=== PATIENT | male | born 1940 | race Two or more races ===

== ENCOUNTER 2016-03-06 17:50 | Emergency (ER) | payer MEDICARE, MEDICAID ==
[~2016-03-06] VITALS: Ht 165.1 cm; Wt 72.6 kg
[~2016-03-06 17:50] MED LIST: AMLODIPINE-BEN1 EAC1 PO; AMLODIPINE-BEN1 EAC4 PO; ASPIR 8181 MG ORAL; AVODART0.5 MG PO; CIPRO500 MG PO; COLACE100 MG ORAL; DOCUSATE SODIU250 MG PO; FERROUS SULFAT325 MG PO; FLOMAX0.4 MG PO; FLUCONAZOLE200 MG PO; GABAPENTIN400 MG ORAL; GLUCOPHAGE500 MG PO; IBUPROFEN100 M1 PO; METOPROLOL TAR100 MG PO; NORCO 5-325 TA1 EACH ORAL; PEPCID40 MG PO; PRILOSEC20 MG PO; TRAMADOL HCL50 MG ORAL; TYLENOL WITH C1 EACH PO; VICODIN 5-5001 EACH PO; ZOFRAN ODT4 MG ORAL
--- NOTE | 2016-03-06 18:25 | Emergency Room Report ---
History of Present Illness General Chief Complaint: Abdominal Pain Source: Patient, Family Member, Medical Record Present Illness HPI 75 YOM with HTN, DM, CAD s/p stent a few years ago with continued abd pain, mostly LLQ and chills. Denies nausea/vomiting, fever/chills, diarrhea. Is taking Levofloxacin for UTI. Denies foreign travel, denies sick contacts. Patient has another MRN, [id number] with visits here 03/01 (5 days ago) for fever/ chills, sweats. CXR was unremarkable. DC with albuterol/T#3. Visit on 03/03 (3 days prior) for abd pain. Was given zofran and DCed. Labs reviewed from previous visits. Stable H&H. No leuks. UA negative for UTI. CXR showed basilar scarring but no PNA. Blood Cx from previous visit were no growth. Allergies: Coded Allergies: No Known Allergies (Unverified , 03/24/12) Patient History Past Medical History: see triage record, old chart reviewed Past Surgical History: none Pertinent Family History: none Social History: Denies: alcohol use, drug use, smoking Reviewed Nursing Documentation: PMH: Agreed, PSxH: Agreed Nursing Documentation-PMH Past Medical History: No History, Except For Hx Cardiac Problems: Yes Hx Hypertension: Yes Hx Pacemaker: No Hx Asthma: No Hx COPD: No Hx Diabetes: Yes Hx Cancer: No Hx Gastrointestinal Problems: Yes - vomiting Hx Dialysis: No Hx Neurological Problems: No Hx Cerebrovascular Accident: No Hx Seizures: No Review of Systems All Other Systems: negative except mentioned in HPI Physical Exam Vital Signs Date Time Temp Pulse Resp B/P Pulse Ox O2 Delivery O2 Flow Rate FiO2 03/06/16 17:53 97.7 96 22 160/70 96 Room Air Sp02 EP Interpretation: reviewed, abnormal General Appearance: normal inspection, well appearing, no apparent distress, alert, GCS 15, non-toxic Head: atraumatic Eyes: bilateral eye EOMI, bilateral eye PERRL ENT: normal ENT inspection, hearing grossly normal, normal voice Neck: normal inspection, full range of motion, supple, no bony tend Respiratory: normal inspection, chest non-tender, lungs clear, normal breath sounds, no rhonchi, no respiratory distress, no retraction, no accessory muscle use, no wheezing Cardiovascular #1: regular rate, rhythm, no edema Gastrointestinal: normal inspection, normal bowel sounds, soft, no guarding, no hernia, other - Mild ttp to RLQ Genitourinary: no CVA tenderness Musculoskeletal: normal inspection, back normal, normal range of motion, Jeremy' s Sign negative Neurologic: normal inspection, alert, responsive, lip reading teacher III-XII nml as tested, motor strength/tone normal, speech normal Psychiatric: normal inspection, judgement/insight normal, mood/affect normal Skin: normal inspection, normal color, no rash Medical Decision Making Diagnostic Impression: Primary Impression: Abdominal pain Qualified Codes: R10.32 - Left lower quadrant pain ER Course 75 YO M with RLQ pain, about 5 days of fever/chills, sweats, abd pain. 2 other ED visits here in last week. VS notable for HTN here. Afebrile. DDx Colitis, Diverticulitis (known diverticulosis on CTAP 2015), ACS - given CAD history - gastritis, URI, stomach Virus PLAN Cardiac, O2 monitor, ECG, labs, troponin, CXR, CTAP, analgesia, possible admission EKG Diagnostic Results Rate: normal Rhythm: NSR ST Segments: no acute changes ASA given to the pt in ED: No Rhythm Strip Diag. Results EP Interpretation: yes Rate: 75 Rhythm: NSR, no PVC's, no ectopy Reevaluation Time: 18:27 Last Vital Signs Date Time Temp Pulse Resp B/P Pulse Ox O2 Delivery O2 Flow Rate FiO2 03/06/16 17:53 97.7 96 22 160/70 96 Room Air Status: improved Reevaluation Impression Patient refused repeat CXR today. CTAP: chronic diverticulosis, bilateral non obstructing inguinal hernias. Normal appendix Labs: Chronic CKD. No leuks. H&H stable. UA negative for infection A: Chronic abd pain Recommending completing course of Levo Zofran as needed for nausea Will add on Pepcid for ?gastritis, viral gastroenteritis DC home with PMD followup Disposition: HOME, SELF-CARE Scripts Famotidine (PEPCID) 40 Mg Tablet 40 MG PO DAILY for 7 Days, #30 TAB 0 Refills Prov: TRACIE RAIN M.D. 03/06/16 TRACIE RAIN M.D. Mar 06, 2016 18:25
[2016-03-06] MEDS ORDERED: Pantoprazole Inj IV ONE (18:30)
[2016-03-06 18:55] LABS: APPEARANCE,URINE CLEAR; KETONES,URINE NEGATIVE (NEGATIVE); LEUKOCYTE ESTERASE ,URINE 1+ (NEGATIVE); NITRITE,URINE NEGATIVE (NEGATIVE); PH,URINE 5 (4.5-8.0); PROTEIN,URINE 2+ (NEGATIVE); UROBILINOGEN,URINE NORMAL MG/DL (0.0-1.0)
[2016-03-06 18:56] LABS: BASOPHILS % (AUTO) 0.7 % (0.0-2.0); EOSINOPHILS % (AUTO) 0.3 % (0.0-3.0); LYMPHOCYTES % (AUTO) 15.8 % (20.0-45.0); MEAN CORPUSCULAR HEMOGLOBIN 26.1 PG (27.0-31.0); MEAN CORPUSCULAR HGB CONC 31.6 G/DL (32.0-36.0); MEAN CORPUSCULAR VOLUME 83 FL (80-99); MONOCYTES % (AUTO) 6.5 % (1.0-10.0); NEUTROPHILS % (AUTO) 76.7 % (45.0-75.0); PLATELET COUNT 217 K/UL (150-450); RED CELL DISTRIBUTION WIDTH 14.1 % (11.6-14.8); WHITE BLOOD COUNT 9.1 K/UL (4.8-10.8)
[2016-03-06 19:03] LABS: BACTERIA,URINE OCCASIONAL /HPF; RBC,URINE 0-2 /HPF (0 - 0); SQUAMOUS EPITHELIAL CELL,UR OCCASIONAL /LPF (NONE/OCC); WBC,URINE 0-2 /HPF (0 - 0)
[2016-03-06 19:09] LABS: TROPONIN I < 0.30 ng/mL (<=0.30)
[2016-03-06 19:10] LABS: ALANINE AMINOTRANSFERASE 19 U/L (3-41); ALBUMIN/GLOBULIN RATIO 1.4 (1.0-2.7); ANION GAP 14 (5-15); ASPARTATE AMINO TRANSFERASE 19 U/L (5-40); CALCIUM 9.8 mg/dL (8.6-10.2); CARBON DIOXIDE 27 mEQ/L (20-30); CHLORIDE 97 mEQ/L (98-107); CREATININE 1.4 mg/dL (0.7-1.2); HEMOLYSIS 6; LIPASE 22 U/L (< 60); POTASSIUM 4.7 mEQ/L (3.4-4.9); SODIUM 138 mEQ/L (135-145); TOTAL PROTEIN 7.3 g/dL (6.6-8.7)
[2016-03-06 20:00] VITALS: BP 159/67
[2016-03-06] MEDS ORDERED: PEPCID40 MG PO (20:13)
[2016-03-06 20:33] VITALS: BP 138/68
--- NOTE | 2016-03-08 11:46 | Diagnostic Imaging Report ---
Indication: Abdominal pain Technique: CT scan of the abdomen and pelvis utilizing automated exposure control without intravenous or oral contrast. Axial, sagittal and coronal images were obtained. CT dose: Total DLP 627 mGycm; CTDI vol 11.8 mGy Comparison: None Findings: Evaluation of the solid organs is limited without intravenous contrast material. There is atelectasis in the lung bases. There is a small hiatal hernia. A few tiny hypodensities are seen of the liver too small to characterize measuring up to 4 mm. The adrenal glands and pancreas are unremarkable. No CT evident gallstones are identified. Bilateral renal hypodensities are seen measuring up to 3.7 cm in the right kidney incompletely characterized. There is also a peripherally calcified lesion of the right kidney measuring 1.2 cm. Bilateral perinephric stranding is seen. There is no hydronephrosis. There is a calcification of the anterior bladder. Prostate is prominent. There is a fat-containing right inguinal hernia. Mild bilateral hydroceles are demonstrated. Atherosclerotic and his are seen. There is a tiny fat-containing paraumbilical hernia. The small bowel loops are normal in caliber. The appendix is normal. There is colonic diverticulosis without diverticulitis. There is no free intraperitoneal fluid or air. Degenerative changes of the spine are present. Impression: Colonic diverticulosis without diverticulitis. Small hiatal hernia. Bilateral renal hypodensities incompletely characterized could represent cysts. Peripheral calcified lesion of the right kidney measuring 1.2 cm. Correlation with ultrasound recommended. Capsular calcification of the spleen. Atherosclerotic changes. Prominent prostate. Fat-containing right inguinal hernia. Other findings as above. The CT scanner at [facility] is accredited by the [employer] and the scans are performed using protocols designed to limit radiation exposure to as low as reasonably achievable to attain images of sufficient resolution adequate for diagnostic evaluation.
== END 2016-03-06 20:35 | disposition home or self-care (01) ==
LOC: EMR 18:45
DX: R10.32 Left lower quadrant pain (principal); I10 Essential (primary) hypertension; K44.9 Diaphragmatic hernia without obstruction or gangrene; K57.30 Diverticulosis of large intestine without perforation or abscess without bleeding; E11.9 Type 2 diabetes mellitus without complications; I25.10 Atherosclerotic heart disease of native coronary artery without angina pectoris; Z95.5 Presence of coronary angioplasty implant and graft
CPT/HCPCS: 36415; 74176; 80053; 81003; 82962; 83690; 84484; 85025; 96374; 96375; 99284; C9113; Q9967

== ENCOUNTER 2016-11-19 20:31 | Emergency (ER) | payer MEDICARE, MEDICAID ==
[~2016-11-19] VITALS: Ht 165.1 cm; Wt 68.0 kg
[~2016-11-19 20:31] MED LIST changes: +ACETAMINOPHEN-1 EAC1 ORAL; +ATORVASTATIN CA20 MG ORAL; +CIPRO XR 500 M500 MG PO; +CODEINE 30MG TA30 MG PO; +DEXILANT60 MG ORAL; +DOCUSATE SODIU100 M2 ORAL; +FLOMAX0.4 MG ORAL; +GABAPENTIN300 MG ORAL; +GLUCOPHAGE1000 MG PO; +HYDROCHLOROTHIA25 MG ORAL; +IBUPROFEN600 MG PO; +LEVAQUIN500 MG ORAL; +LOTREL 10-40 M1 EACH PO; +METFORMIN HCL1000 M2 ORAL; +METOPROLOL SUC100 MG ORAL; +NORVASC10 MG ORAL; +PROAIR HFA8.5 GM INH; +RANITIDINE HCL150 MG ORAL; +TRAZODONE HCL50 MG ORAL; +UNOBMED
[2016-11-19 20:50] VITALS: BP 185/91
[2016-11-19] MEDS ORDERED: Mylanta II UD 30ml ORAL ONE (21:00)
[2016-11-19] MEDS ORDERED: Morphine Sulfate 2mg/ml Inj IVP ONE (21:00)
[2016-11-19] MEDS ORDERED: Lidocaine 2% Visc 15ml soln ORAL ONE (21:00)
--- NOTE | 2016-11-19 21:00 | Emergency Room Report ---
History of Present Illness General Chief Complaint: Chest Pain Source: Patient Present Illness HPI Patient presents with 3 days of epigastric abdominal pain. This radiates into his chest. Has history of gastritis. He's been taking Pepto-Bismol and Tylenol. Denies any fevers or vomiting. There's no melena. He takes omeprazole. Pain now is 9/10, burning and constant. He also has pain in the heel of his left foot. Has been taking tramadol for that The patient has history of hypertension and post CABG, no smoking, DM No cough, dyspnea, diaphoresis, dysuria, other joint pain, rashes, REYNOLDS, dizziness , anxiety. Allergies: Coded Allergies: No Known Allergies (Unverified , 02/25/10) Patient History Past Medical History: see triage record Past Surgical History: CABG Social History: Denies: smoking, alcohol use, drug use Social History Narrative with son Reviewed Nursing Documentation: PMH: Agreed, PSxH: Agreed Nursing Documentation-PMH Hx Cardiac Problems: Yes - heart bypass surgery Hx Hypertension: Yes Hx Pacemaker: No Hx Asthma: No Hx COPD: No Hx Diabetes: Yes Hx Cancer: No Hx Gastrointestinal Problems: Yes - vomiting Hx Dialysis: No Hx Neurological Problems: No Hx Cerebrovascular Accident: No Hx Seizures: No Review of Systems All Other Systems: negative except mentioned in HPI Physical Exam Vital Signs Date Time Temp Pulse Resp B/P (MAP) Pulse Ox O2 Delivery O2 Flow Rate FiO2 11/19/16 20:40 98.4 89 18 185/91 98 Sp02 EP Interpretation: reviewed, normal General Appearance: well appearing, no apparent distress, GCS 15 Head: normocephalic Eyes: bilateral eye PERRL ENT: other - facial assymmetry, slight lax R Neck: supple Respiratory: lungs clear, normal breath sounds Cardiovascular #1: regular rate, rhythm Cardiovascular #2: 2+ radial (R), 2+ dorsalis pedis (L) Gastrointestinal: normal inspection, normal bowel sounds, non tender, no mass, non-distended Musculoskeletal: back normal, normal range of motion, tender - L heel, ankle stable Neurologic: alert, oriented x3 Skin: normal inspection, warm/dry Medical Decision Making Diagnostic Impression: Primary Impression: Abdominal pain Qualified Codes: R10.13 - Epigastric pain Additional Impressions: Gastritis Qualified Codes: K29.00 - Acute gastritis without bleeding Plantar fasciitis of left foot ER Course Patient presents with epigastric pain. DDx: gastritis, AMI, ACS, esophagitis, PUD, pancreatitis amongst others. Emergent evaluation with EKG, cxr, labs. Treatment with GI cocktail and pepcid with some morphine. At risk with hx and taking Pepto. Foot pain c/w planta fasciitis. EKG no injury. CXR post CABG. Labs with sl elevated creat and BNP. Normal troponin. Pain resolved with treatment. No cardiac emergency at this time. Patient stable for outpatient observation and treatment. Laboratory Tests Test 11/19/16 21:34 White Blood Count 9.3 K/UL (4.8-10.8) Red Blood Count 4.75 M/UL (4.70-6.10) Hemoglobin 11.8 G/DL (14.2-18.0) L Hematocrit 39.6 % (42.0-52.0) L Mean Corpuscular Volume 83 FL (80-99) Mean Corpuscular Hemoglobin 24.7 PG (27.0-31.0) L Mean Corpuscular Hemoglobin Concent 29.7 G/DL (32.0-36.0) L Red Cell Distribution Width 13.7 % (11.6-14.8) Platelet Count 168 K/UL (150-450) Mean Platelet Volume 8.6 FL (6.5-10.1) Neutrophils (%) (Auto) 77.3 % (45.0-75.0) H Lymphocytes (%) (Auto) 15.1 % (20.0-45.0) L Monocytes (%) (Auto) 6.7 % (1.0-10.0) Eosinophils (%) (Auto) 0.3 % (0.0-3.0) Basophils (%) (Auto) 0.6 % (0.0-2.0) Prothrombin Time 10.6 SEC (9.30-11.50) Prothrombin Time INR 1.0 (0.9-1.1) PTT 26 SEC (23-33) Sodium Level 140 mEQ/L (135-145) Potassium Level 4.8 mEQ/L (3.4-4.9) Chloride Level 102 mEQ/L (98-107) Carbon Dioxide Level 25 mEQ/L (20-30) Anion Gap 13 (5-15) Blood Urea Nitrogen 13 mg/dL (7-23) Creatinine 1.3 mg/dL (0.7-1.2) H Estimate Glomerular Filtration Rate mL/min (>60) Glucose Level 257 mg/dL (74-106) H Calcium Level 9.4 mg/dL (8.6-10.2) Total Bilirubin 0.2 mg/dL (0.0-1.2) Aspartate Amino Transferase (AST) 11 U/L (5-40) Alanine Aminotransferase (ALT) 9 U/L (3-41) Alkaline Phosphatase 67 U/L (40-129) Total Creatine Kinase 48 U/L (38-174) Troponin I < 0.30 ng/mL (<=0.30) Pro-B-Type Natriuretic Peptide 1007 pg/mL (0-450) H Total Protein 7.3 g/dL (6.6-8.7) Albumin 4.0 g/dL (3.5-5.2) Globulin 3.3 g/dL Albumin/Globulin Ratio 1.2 (1.0-2.7) EKG Diagnostic Results Rate: normal Rhythm: NSR ST Segments: no acute changes Rhythm Strip Diag. Results EP Interpretation: yes Rhythm: NSR, no PVC's, no ectopy Chest X-Ray Diagnostic Results Chest X-Ray Diagnostic Results : Chest X-Ray Ordered: Yes # of Views/Limited/Complete: 1 View Indication: Other EP Interpretation: Yes Interpretation: no consolidation, no effusion, no pneumothorax, other - sternotomy Electronically Signed by: Electronically signed by Yannick Gregory MD Last Vital Signs Date Time Temp Pulse Resp B/P (MAP) Pulse Ox O2 Delivery O2 Flow Rate FiO2 11/19/16 23:50 98.1 71 21 169/77 100 Room Air Status: improved Disposition: HOME, SELF-CARE Condition: Improved Scripts Mag Hydrox/Al Hydrox/Simeth (MAALOX MAXIMUM STRENGTH SUSP) 355 Ml Oral.susp 30 ML PO Q6HR, #240 ML Prov: Yannick Gregory M.D. 11/19/16 Hydrocodone Bit/Acetaminophen 5-325* (NORCO 5-325*) 1 Each Tablet 1 TAB ORAL Q6H Y for For Pain, #10 TAB 0 Refills Prov: Yannick Gregory M.D. 11/19/16 Yannick Gregory M.D. Nov 19, 2016 21:00
[2016-11-19 21:45] LABS: BASOPHILS % (AUTO) 0.6 % (0.0-2.0); EOSINOPHILS % (AUTO) 0.3 % (0.0-3.0); LYMPHOCYTES % (AUTO) 15.1 % (20.0-45.0); MEAN CORPUSCULAR HEMOGLOBIN 24.7 PG (27.0-31.0); MEAN CORPUSCULAR HGB CONC 29.7 G/DL (32.0-36.0); MEAN CORPUSCULAR VOLUME 83 FL (80-99); MEAN PLATELET VOLUME 8.6 FL (6.5-10.1); MONOCYTES % (AUTO) 6.7 % (1.0-10.0); NEUTROPHILS % (AUTO) 77.3 % (45.0-75.0); PLATELET COUNT 168 K/UL (150-450); RED BLOOD COUNT 4.75 M/UL (4.70-6.10); RED CELL DISTRIBUTION WIDTH 13.7 % (11.6-14.8); WHITE BLOOD COUNT 9.3 K/UL (4.8-10.8)
[2016-11-19 21:56] LABS: PROTHROMBIN TIME 10.6 SEC (9.30-11.50)
[2016-11-19 21:59] LABS: ALANINE AMINOTRANSFERASE 9 U/L (3-41); ALBUMIN/GLOBULIN RATIO 1.2 (1.0-2.7); ANION GAP 13 (5-15); ASPARTATE AMINO TRANSFERASE 11 U/L (5-40); CALCIUM 9.4 mg/dL (8.6-10.2); CARBON DIOXIDE 25 mEQ/L (20-30); CHLORIDE 102 mEQ/L (98-107); CREATININE 1.3 mg/dL (0.7-1.2); HEMOLYSIS 0; POTASSIUM 4.8 mEQ/L (3.4-4.9); SODIUM 140 mEQ/L (135-145); TOTAL PROTEIN 7.3 g/dL (6.6-8.7); TROPONIN I < 0.30 ng/mL (<=0.30)
[2016-11-19 23:00] VITALS: BP 178/79
[2016-11-19] MEDS ORDERED: NORCO 5-325 TA1 EACH ORAL (23:38)
[2016-11-19] MEDS ORDERED: MAALOX MAXIMUM355 M1 PO (23:38)
[2016-11-19 23:50] VITALS: BP 169/77
--- NOTE | 2016-11-20 10:21 | Diagnostic Imaging Report ---
Indication: Dyspnea Comparison: 05/15/15 A single view chest radiograph was obtained. Findings: No definite infiltrate or pulmonary vascular congestion identified. The heart is enlarged. The aorta is mildly enlarged consistent with atherosclerotic vascular disease. The bones are osteopenic. Impression: No acute disease
--- NOTE | 2016-11-26 23:26 | Cardiology Report ---
APPROVED REPORT EKG Measurement Heart [id number] Normal sinus rhythm Cannot rule out Anterior infarct, age undetermined Abnormal ECG
== END 2016-11-19 23:50 | disposition home or self-care (01) ==
LOC: MERGE 23:03 → EMR 23:03
DX: K29.70 Gastritis, unspecified, without bleeding (principal); M72.2 Plantar fascial fibromatosis; I10 Essential (primary) hypertension; E11.9 Type 2 diabetes mellitus without complications; Z95.1 Presence of aortocoronary bypass graft
CPT/HCPCS: 36415; 71010; 80053; 82550; 83880; 84484; 85025; 85610; 85730; 93005; 96361; 96374; 96375; 99284; J2270; S0028

== ENCOUNTER 2018-05-28 19:24 | Emergency (ER) | payer MEDICARE, MEDICAID ==
[~2018-05-28] VITALS: Ht 165.1 cm; Wt 68.0 kg
[~2018-05-28 19:24] MED LIST changes: +MAALOX MAXIMUM355 M1 PO
--- NOTE | 2018-05-28 20:12 | Emergency Room Report ---
History of Present Illness General Chief Complaint: Chest Pain Source: Patient Present Illness HPI Patient presents with a strange feeling in his chest and some epigastric pain that began this morning when he woke up. The pain did not wake him up. He says he's got a bitter taste in his mouth and vomited once. I denies any blood or coffee grounds. He denies any melena also. He is on omeprazole. In addition to that he is diabetic and hypertensive. He's had triple bypass in the past. He doesn't feel dizziness. There's minimal dyspnea on exertion without orthopnea. He denies any edema or calf tenderness. He feels weak. The pain is poorly characterized and rated 5/10. No fevers, chills, palpitations, diarrhea, dysuria, depression, visual changes, headache. He's been seen several times in the past for abdominal pain and gastritis. Allergies: Coded Allergies: No Known Allergies (Unverified , 03/24/12) Patient History Past Medical History: see triage record, old chart reviewed Past Surgical History: CABG Social History: Denies: smoking, alcohol use, drug use Social History Narrative with daughter Reviewed Nursing Documentation: PMH: Agreed; PSxH: Agreed Nursing Documentation-PMH Hx Cardiac Problems: Yes Hx Hypertension: Yes Hx Pacemaker: No Hx Asthma: No Hx COPD: No Hx Diabetes: Yes Hx Cancer: No Hx Gastrointestinal Problems: Yes - vomiting Hx Dialysis: No Hx Neurological Problems: No Hx Cerebrovascular Accident: No Hx Seizures: No Review of Systems All Other Systems: negative except mentioned in HPI Physical Exam Vital Signs Date Time Temp Pulse Resp B/P (MAP) Pulse Ox O2 Delivery O2 Flow Rate FiO2 05/28/18 19:36 98.8 108 21 180/112 97 Room Air Sp02 EP Interpretation: reviewed, normal General Appearance: well appearing, no apparent distress, GCS 15 Head: normocephalic Eyes: bilateral eye normal inspection, bilateral eye PERRL, bilateral eye EOMI ENT: moist mucus membranes Neck: supple Respiratory: lungs clear, normal breath sounds Cardiovascular #1: no edema, no murmur, tachycardia, irregularly irregular Cardiovascular #2: 2+ radial (R) Gastrointestinal: normal inspection, normal bowel sounds, non tender, no mass, non-distended, overweight Musculoskeletal: back normal, gait/station normal, normal range of motion Neurologic: alert, oriented x3, grossly normal Psychiatric: mood/affect normal Skin: normal inspection, warm/dry Medical Decision Making Diagnostic Impression: Primary Impression: Chest pain Qualified Codes: R07.9 - Chest pain, unspecified Additional Impressions: Nausea & vomiting Qualified Codes: R11.2 - Nausea with vomiting, unspecified CHF (congestive heart failure) Qualified Codes: I50.9 - Heart failure, unspecified HTN (hypertension) Qualified Codes: I10 - Essential (primary) hypertension Renal insufficiency Paroxysmal A-fib Epigastric pain ER Course Initially, when I was taking the patient's pulse he had an irregularly irregular rapid pulse rate which felt like atrial fibrillation. By the time he was put on the monitor he was in sinus rhythm. Given the chest pain and the nausea better taste in his mouth there is a broad differential with his prior cardiac history. Differential includes acute myocardial infarction, new-onset atrial fibrillation, acute coronary syndrome, gastritis, GERD, pancreatitis, gastroenteritis amongst others. The patient evaluated with EKG, chest x-ray and labs. He will be treated with Pepcid and Zofran. EKG with sinus rhythm rate of 95 no injury. CXR CABG with pulm vascular congestion. Labs with normal WBC, slight anemia, renal insufficiency, normal troponin, slightly elevated BNP. Minimal pyuria. HTN treated with metoprolol (dose taken by patient). Patient's daughter reported continued pain, but this was denied by patient. Initially, lasix and mylanta ordered with nitro-paste. Former 2 meds cancelled as patient urinating frequently and denies pain. Due to arrhythmia and pulmonary congestion, patient admitted monitored bed for continued evaluation. Laboratory Tests Test 05/28/18 19:34 05/28/18 20:15 Urine Color Pale yellow Urine Appearance Clear Urine pH 8 (4.5-8.0) Urine Specific [place] 1.010 (1.005-1.035) Urine Protein 2+ (NEGATIVE) H Urine Glucose (UA) Negative (NEGATIVE) Urine Ketones Negative (NEGATIVE) Urine Blood Negative (NEGATIVE) Urine Nitrite Negative (NEGATIVE) Urine Bilirubin Negative (NEGATIVE) Urine Urobilinogen Normal MG/DL (0.0-1.0) Urine Leukocyte Esterase 1+ (NEGATIVE) H Urine RBC 0 /HPF (0 - 0) Urine WBC 5-10 /HPF (0 - 0) H Urine Squamous Epithelial Cells None /LPF (NONE/OCC) Urine Bacteria Few /HPF (NONE) Urine Mucus Few /LPF (NONE/OCC) H White Blood Count 7.2 K/UL (4.8-10.8) Red Blood Count 4.74 M/UL (4.70-6.10) Hemoglobin 12.2 G/DL (14.2-18.0) L Hematocrit 38.3 % (42.0-52.0) L Mean Corpuscular Volume 81 FL (80-99) Mean Corpuscular Hemoglobin 25.7 PG (27.0-31.0) L Mean Corpuscular Hemoglobin Concent 31.9 G/DL (32.0-36.0) L Red Cell Distribution Width 14.0 % (11.6-14.8) Platelet Count 155 K/UL (150-450) Mean Platelet Volume 7.3 FL (6.5-10.1) Neutrophils (%) (Auto) % (45.0-75.0) Lymphocytes (%) (Auto) % (20.0-45.0) Monocytes (%) (Auto) % (1.0-10.0) Eosinophils (%) (Auto) % (0.0-3.0) Basophils (%) (Auto) % (0.0-2.0) Prothrombin Time 10.7 SEC (9.30-11.50) Prothrombin Time INR 1.0 (0.9-1.1) PTT 28 SEC (23-33) Sodium Level 138 MMOL/L (136-145) Potassium Level 5.0 MMOL/L (3.5-5.1) Chloride Level 104 MMOL/L (98-107) Carbon Dioxide Level 26 MMOL/L (21-32) Anion Gap 8 mmol/L (5-15) Blood Urea Nitrogen 23 mg/dL (7-18) H Creatinine 1.6 MG/DL (0.55-1.30) H Estimate Glomerular Filtration Rate mL/min (>60) Glucose Level 169 MG/DL (74-106) H Calcium Level 9.3 MG/DL (8.5-10.1) Total Bilirubin 0.3 MG/DL (0.2-1.0) Aspartate Amino Transferase (AST) 18 U/L (15-37) Alanine Aminotransferase (ALT) 24 U/L (12-78) Alkaline Phosphatase 75 U/L (46-116) Total Creatine Kinase 122 U/L (26-308) Troponin I 0.032 ng/mL (0.000-0.056) Pro-B-Type Natriuretic Peptide 677 pg/mL (0-125) H Total Protein 7.8 G/DL (6.4-8.2) Albumin 3.6 G/DL (3.4-5.0) Globulin 4.2 g/dL Albumin/Globulin Ratio 0.9 (1.0-2.7) L EKG Diagnostic Results Rate: normal Rhythm: NSR ST Segments: no acute changes Rhythm Strip Diag. Results EP Interpretation: yes Rhythm: NSR, no PVC's, no ectopy Chest X-Ray Diagnostic Results Chest X-Ray Diagnostic Results : Chest X-Ray Ordered: Yes # of Views/Limited/Complete: 1 View Indication: Chest Pain EP Interpretation: Yes Interpretation: no effusion, no pneumothorax, other - CABG and mild CHF Impression: Other Electronically Signed by: Electronically signed by Yannick Gregory MD Last Vital Signs Date Time Temp Pulse Resp B/P (MAP) Pulse Ox O2 Delivery O2 Flow Rate FiO2 05/29/18 00:35 Room Air 05/29/18 00:07 76 05/28/18 23:00 98.5 16 153/69 (97) 97 Status: improved Disposition: ADMITTED INPATIENT Condition: Serious Yannick Gregory MD May 28, 2018 20:12
[2018-05-28 20:15] VITALS: BP 160/84
--- NOTE | 2018-05-28 20:15 | NUR ---
ED Nurse Note: Patient walk in with daughter c/o upper abdominal pain radiating to upper left chest. Patient AOx4, BP 160/84, other VSS, ambulatory with steady gait, no s/s of acute distress noted at this time. Patient states pain started this morning at 1000. Patient reports vomiting undigested food 3 times this morning. Patient seen by ERMD at bedside.
[2018-05-28 20:18] LABS: APPEARANCE,URINE CLEAR; BILIRUBIN, URINE NEGATIVE (NEGATIVE); COLOR,URINE PALE YELLOW; GLUCOSE, URINE (UA) NEGATIVE (NEGATIVE); KETONES,URINE NEGATIVE (NEGATIVE); LEUKOCYTE ESTERASE ,URINE 1+ (NEGATIVE); NITRITE,URINE NEGATIVE (NEGATIVE); PH,URINE 8 (4.5-8.0); PROTEIN,URINE 2+ (NEGATIVE); UROBILINOGEN,URINE NORMAL MG/DL (0.0-1.0)
[2018-05-28 20:39] LABS: HEMATOCRIT 38.3 % (42.0-52.0); HEMOGLOBIN 12.2 G/DL (14.2-18.0); MEAN CORPUSCULAR VOLUME 81 FL (80-99); PLATELET COUNT 155 K/UL (150-450); RED BLOOD COUNT 4.74 M/UL (4.70-6.10); WHITE BLOOD COUNT 7.2 K/UL (4.8-10.8)
[2018-05-28 20:48] LABS: ANION GAP 8 mmol/L (5-15); BLOOD UREA NITROGEN 23 mg/dL (7-18); CALCIUM 9.3 MG/DL (8.5-10.1); CARBON DIOXIDE 26 MMOL/L (21-32); CHLORIDE 104 MMOL/L (98-107); CREATININE 1.6 MG/DL (0.55-1.30); SODIUM 138 MMOL/L (136-145)
[2018-05-28] MEDS ORDERED: OMEPRAZOLE40 M1 ORAL (20:53)
[2018-05-28] MEDS ORDERED: BENAZEPRIL HCL40 MG ORAL (20:56)
[2018-05-28] MEDS ORDERED: TRADJENTA5 MG PO (20:56)
[2018-05-28] MEDS ORDERED: DONEPEZIL HCL5 M2 ORAL (20:56)
[2018-05-28] MEDS ORDERED: TRAMADOL HCL50 MG ORAL (20:56)
[2018-05-28 20:59] LABS: ALANINE AMINOTRANSFERASE 24 U/L (12-78); ALBUMIN 3.6 G/DL (3.4-5.0); ALBUMIN/GLOBULIN RATIO 0.9 (1.0-2.7); ALKALINE PHOSPHATASE 75 U/L (46-116); ASPARTATE AMINO TRANSFERASE 18 U/L (15-37); BILIRUBIN,TOTAL 0.3 MG/DL (0.2-1.0); CREATINE KINASE 122 U/L (26-308)
--- NOTE | 2018-05-28 20:59 | Diagnostic Imaging Report ---
EXAM: XR Chest, 1 View CLINICAL HISTORY: chest pain TECHNIQUE: Frontal view of the chest. COMPARISON: October 25, 2015 chest x-ray FINDINGS: Lungs: Mild central pulmonary vascular congestion is noted. Lungs otherwise clear. Pleural space: No pneumothorax or pleural effusion. Heart: Borderline cardiac enlargement is present. Mediastinum: Unremarkable. Bones/joints: Post sternotomy surgical changes with surgical clips suggesting prior CABG. No aggressive osseous lesions. Vasculature: The thoracic aorta is calcified and appears slightly more tortuous in the interval. Upper abdomen: No free air in the diaphragms. IMPRESSION: Post CABG surgical changes of aortic tortuosity and mild central pulmonary venous congestion. Otherwise no acute cardiopulmonary process.
[2018-05-28] MEDS ORDERED: Nitroglycerin Subl 0.4mg tab SL PRN (21:45)
[2018-05-28] MEDS ORDERED: Nitroglycerin 2% oint pkt TOPIC ONE (21:45)
[2018-05-28] MEDS ORDERED: Mylanta II UD 30ml ORAL ONE (21:45)
[2018-05-28 22:15] VITALS: BP 176/75
--- NOTE | 2018-05-28 22:15 | NUR ---
ED Nurse Note: Patient transferred to telemetry unit. Patient AOx4, BP 176/75, other VSS, no s/s of acute distress noted at this time, ambulatory with steady gait. Patient transferred with all belongings. Patient transferred on [facility], connected to compliance monitor, by EUGENIO rachel and medical staff services coordinator. Patient report given to Nirav BOWLES at bedside. Patient tolerated transfer well.
[2018-05-28 23:00] VITALS: BP 153/69
--- NOTE | 2018-05-28 23:00 | NUR ---
NURSE NOTES: Pt arrived on unit from ER. Got report from Aaron BOWLES. Initial assessment done. Pt in stable condition. VSS. Pt denies any chest pain or any pain. No n/v noted. Pt sating 97% on room air. Pt Japanese speaking but able to answer all of my questions A+Ox4. Pt able to ambulate to bathroom steady w/o difficulty. Bed in low and locked position, call light within reach, bedside table within reach. Continue to monitor.
[2018-05-28] MEDS: Enoxaparin 40mg Inj SUBQ SCH (23:05)
[2018-05-29 04:20] VITALS: BP 153/76
[2018-05-29] MEDS: NovoLOG Insulin Flexpen SUBQ SCH ×4 (06:04→20:36)
[2018-05-29 06:55] LABS: BASOPHILS % (AUTO) 0.4 % (0.0-2.0); EOSINOPHILS % (AUTO) 0.7 % (0.0-3.0); HEMATOCRIT 37.4 % (42.0-52.0); HEMOGLOBIN 12.1 G/DL (14.2-18.0); LYMPHOCYTES % (AUTO) 16.4 % (20.0-45.0); MEAN CORPUSCULAR VOLUME 82 FL (80-99); MONOCYTES % (AUTO) 9.4 % (1.0-10.0); NEUTROPHILS % (AUTO) 73.1 % (45.0-75.0); PLATELET COUNT 160 K/UL (150-450); RED BLOOD COUNT 4.57 M/UL (4.70-6.10); RED CELL DISTRIBUTION WIDTH 14.2 % (11.6-14.8); WHITE BLOOD COUNT 7.1 K/UL (4.8-10.8)
[2018-05-29 07:08] LABS: ANION GAP 7 mmol/L (5-15); BLOOD UREA NITROGEN 22 mg/dL (7-18); CALCIUM 9.3 MG/DL (8.5-10.1); CARBON DIOXIDE 27 MMOL/L (21-32); CHLORIDE 104 MMOL/L (98-107); CREATININE 1.6 MG/DL (0.55-1.30); POTASSIUM 4.3 MMOL/L (3.5-5.1); SODIUM 138 MMOL/L (136-145)
--- NOTE | 2018-05-29 07:20 | NUR ---
HAND-OFF: Report given to Negra BOWLES. Endorsed plan of care.
[2018-05-29 08:00] VITALS: BP 152/76
--- NOTE | 2018-05-29 08:28 | NUR ---
NURSE NOTES: Received report from Nirav BOWLES. Pt sitting in bed having breakfast. pt on panel monitor reports no pain or signs of distress. Bed locked and in lowest position. Call light is next to him. Will continue plan of care.
[2018-05-29] MEDS: Metoprolol Succinate XL 100mg tab ORAL SCH (08:46)
[2018-05-29] MEDS: traMADol 50mg tab ORAL PRN ×2 (08:46→22:54)
[2018-05-29] MEDS: Aspirin Baby 81mg ORAL SCH (08:47)
--- NOTE | 2018-05-29 09:00 | History and Physical Report ---
DATE OF ADMISSION: 05/28/2018 REASON FOR ADMISSION: Chest pain. HISTORY OF PRESENT ILLNESS: The patient is a 77-year-old gentleman, who started having some chest tightness and pain along with epigastric discomfort in the morning prior to presentation to the emergency room overnight. The patient stated that he had 1 episode of emesis, and he had a bitter taste in his mouth. He is also complaining of left foot pain, which has been chronic for over 3 years. No palpitations. No diarrhea. No headaches. No changes in vision. He stated that the chest pain, discomfort is gripping in nature and approximately 5/10. ALLERGIES: No known drug allergies. PAST MEDICAL HISTORY: 1. Hypertension. 2. Chronic kidney disease. 3. Neuropathy. 4. Diabetes mellitus. 5. BPH. FAMILY HISTORY: Positive for hypertension and diabetes. PAST SURGICAL HISTORY: Noncontributory. REVIEW OF SYSTEMS: NEUROLOGIC: The patient denies headache, change in vision, syncope, or presyncopal episodes. CARDIOVASCULAR: The patient was having chest pain and some tightness. No palpitations. PULMONARY: No difficulty breathing, productive cough, or sputum. GASTROINTESTINAL AND GENITOURINARY: The patient had episodes of emesis. No diarrhea. MUSCULOSKELETAL: The patient is feeling weak, tired, fatigued, and complaining of left foot pain. LABORATORY DATA: Labs dated 03/31/2018, sodium 130, potassium 4.2, and creatinine 1.6. Troponin 0.041. White cell count 7.1, hemoglobin 12.1, and platelet count 160,000. PHYSICAL EXAMINATION: VITAL SIGNS: Blood pressure 153/76, respiratory rate 18, pulse 83, and temperature 97.5 degrees. GENERAL: The patient is awake and alert, not otherwise in distress. HEENT: Extraocular muscles intact. No lymphadenopathy noted. CARDIOVASCULAR: S1 and S2. No rubs or gallops. PULMONARY: Clear to auscultation bilaterally. No rales, rhonchi, or wheezes. ABDOMEN: Nondistended and nontender. EXTREMITIES: No edema. ASSESSMENT AND PLAN: 1. Acute coronary syndrome. 2. Chest pain. At this time, the patient has been given aspirin and beta-veronika and trending troponins will be monitored. Cardiology has been also consulted for further evaluation and management. 3. Hypertension. We will continue to adjust medications as deemed appropriate. We will add MARTA inhibitor back as creatinine seems stable. His baseline is unclear at this time. 4. Chronic kidney disease stage IIIB. Creatinine 1.6. We will continue to monitor. 5. Diabetes mellitus. We will continue insulin sliding scale and Accu-Cheks. Nash Palma MD DR: JOAQUÍN JOB#: [id number] CC:
--- NOTE | 2018-05-29 09:04 | Diagnostic Imaging Report ---
EXAM: XR Left Foot Complete, 3 or More Views CLINICAL HISTORY: PAIN TECHNIQUE: Frontal, lateral and oblique views of the left foot. COMPARISON: No relevant prior studies available. FINDINGS: Bones/joints: Incidental note of an os trigonum. No visible fracture or dislocation. No osseous erosions. Visualized joint spaces appear unremarkable. Soft tissues: Unremarkable. No radiopaque foreign body. Vasculature: Atherosclerotic calcifications noted throughout. IMPRESSION: No acute findings.
--- NOTE | 2018-05-29 11:58 | NUR ---
NURSE NOTES: sugar 119, food tray just arrived will give insulin now.
[2018-05-29 12:00] VITALS: BP 152/76
[2018-05-29 16:00] VITALS: BP 135/67
--- NOTE | 2018-05-29 19:19 | NUR ---
HAND-OFF: Report given to Cosme barahona .
--- NOTE | 2018-05-29 19:25 | NUR ---
NURSE NOTES: Received report from JELENA Omer. Patient in bed awake with family at bedside showing no signs of any distress or discomfort. Respiration even and non labor on room air. No chest pain noted. IV line patent and intact. Bed in lowest position. Bed alarm on, and wheels locked. All needs attended and met. Will continue plan of care.
[2018-05-29 20:00] VITALS: BP 152/71
[2018-05-29] MEDS ORDERED: Donepezil 5mg Tab ORAL SCH (21:00)
[2018-05-29] MEDS: Enoxaparin 40mg Inj SUBQ SCH (22:55)
[2018-05-30] VITALS: BP 144/62
[2018-05-30] MEDS ORDERED: Lexiscan 0.4mg/5ml syringe IV ONE (03:30)
[2018-05-30 04:00] VITALS: BP 152/70
--- NOTE | 2018-05-30 04:15 | Consultation ---
DATE OF CONSULTATION: 05/29/2018 CARDIOLOGY CONSULT CONSULTING PHYSICIAN: Yannick Porras M.D. REQUESTING PHYSICIAN: Nash Palma M.D. REASON FOR CONSULTATION: Chest pain. HISTORY OF PRESENT ILLNESS: This is a 77-year-old male, who presented to the emergency room yesterday with chest pressure and epigastric discomfort of one day's duration. He also noted a bitter taste in his mouth with some emesis. The chest pressure has not been exertional, but has been recurring . The patient had 2 negative troponin levels since admission. His electrocardiogram revealed sinus rhythm with nonspecific ST-T changes. The patient has a known history of CAD and is s/p CABG in 1995. PAST MEDICAL HISTORY: Includes CAD with prior CABG, chronic kidney disease, hypertension with hypertensive heart disease, type 2 diabetes mellitus, diabetic neuropathy, and prostatic hypertrophy. MEDICATIONS: Prior to admission and currently, reviewed and reconciled. FAMILY HISTORY: Notable for diabetes and hypertension SOCIAL HISTORY: Negative for smoking, alcohol, or substance abuse. REVIEW OF SYSTEMS: A 10-point review of systems performed in all systems negative other than noted above. PHYSICAL EXAM: VITAL SIGNS: Blood pressure 152/76, pulse 64, and respirations 21. No fevers. HEENT: Conjunctiva pink. Oropharynx clear. No xanthoma. No arcus. NECK: Supple. No jugular venous distention or bruits. LUNGS: Clear. CARDIAC: Regular rhythm and rate. Normal S1, S2 with a fourth heart sound. No murmur. ABDOMEN: Soft. EXTREMITIES: Revealed adequate distal pulses with no edema. LABORATORY DATA: BUN 22 and creatinine 1.6. Potassium 4.3. Troponin negative x2. Pro-natriuretic peptide was 677 on admission. IMPRESSION: 1. Acute coronary syndrome. 2. Hypertensive heart disease. 3. Type 2 diabetes mellitus. 4. Chronic kidney disease. 5. Diastolic dysfunction with slightly elevated natriuretic peptide assay. 6. Ischemic cardiomyopathy. PLAN: 1. Recommend anti-platelet therapy. 2. Lipid panel. 3. Optimize antihypertensive control. 4. Lexiscan stress test for assessment of coronary flow reserve. 5. Final medication recommendations will follow. Yannick Porras M.D. DR: LIYDA JOB#: [id number] CC: CHERYL
[2018-05-30] MEDS: NovoLOG Insulin Flexpen SUBQ SCH ×3 (06:08→16:30)
[2018-05-30 06:50] LABS: BASOPHILS % (AUTO) 0.6 % (0.0-2.0); EOSINOPHILS % (AUTO) 1.4 % (0.0-3.0); LYMPHOCYTES % (AUTO) 26.6 % (20.0-45.0); MEAN CORPUSCULAR VOLUME 82 FL (80-99); MONOCYTES % (AUTO) 8.7 % (1.0-10.0); NEUTROPHILS % (AUTO) 62.7 % (45.0-75.0); PLATELET COUNT 177 K/UL (150-450); RED BLOOD COUNT 4.89 M/UL (4.70-6.10); RED CELL DISTRIBUTION WIDTH 14.3 % (11.6-14.8); WHITE BLOOD COUNT 6.2 K/UL (4.8-10.8)
[2018-05-30 07:10] LABS: ANION GAP 9 mmol/L (5-15); BLOOD UREA NITROGEN 26 mg/dL (7-18); CALCIUM 9.3 MG/DL (8.5-10.1); CARBON DIOXIDE 26 MMOL/L (21-32); CHLORIDE 105 MMOL/L (98-107); CREATININE 1.6 MG/DL (0.55-1.30); POTASSIUM 4.1 MMOL/L (3.5-5.1); SODIUM 140 MMOL/L (136-145)
--- NOTE | 2018-05-30 07:13 | NUR ---
HAND-OFF: Report given to JELENA Omer. Pt. in bed asleep. no signs of acute distress noted. Patient stable.
[2018-05-30 07:32] LABS: CHOLESTEROL 189 MG/DL (< 200); HDL CHOLESTEROL 36 MG/DL (40-60); TRIGLYCERIDES 143 MG/DL (30-150)
[2018-05-30 08:00] VITALS: BP 163/89
--- NOTE | 2018-05-30 08:16 | NUR ---
NURSE NOTES: received report from Nirav BOWLES. Pt is alert in bed and talking. 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 He understands he will be having a stress test done this morning and he needs to be NPO and have no caffeine products. Bed locked and in lowest position. call light is right next to him. Will continue plan of care.
--- NOTE | 2018-05-30 08:29 | NUR ---
CASE MANAGEMENT:REVIEW 77 YR OLD MALE FROM HOME CC: ABDOMINAL PAIN RADIATING TO CHEST. VOMITED SI: CHEST PAIN. PAFIB. CHF 98.8 108 21 180/112 97% ON RA BUN+23 CR+1.6 TROPONIN(-) IS: IV ZOFRAN IV PEPCID METOPROLOL PO CHEST XRAY : TO TELEMETRY Addendum: 05/30/18 at 0840 by PRISCILLA GUARDADO LVN LVN STRESS TEST
[2018-05-30] MEDS: Metoprolol Succinate XL 100mg tab ORAL SCH (09:00)
[2018-05-30] MEDS ORDERED: Heparin 5000 units/ml inj SUBQ SCH (09:00)
[2018-05-30] MEDS: Aspirin Baby 81mg ORAL SCH (09:01)
[2018-05-30 12:00] VITALS: BP 136/71
--- NOTE | 2018-05-30 13:48 | NUR ---
Myocardial Perfusion scan complete.
--- NOTE | 2018-05-30 14:40 | Diagnostic Imaging Report ---
Indications: Chest pain, history of CABG in 1995 Technique: Single day single isotope protocol utilized. Initially, resting images obtained using IV administration 10.3 millicuries 99M technetium Myoview. Subsequently, patient underwent lexiscan stress testing. See cardiology report for details. During Lexiscan infusion, IV administration 30.7 mCi 99 M technetium Myoview. SPECT and planar images obtained. SPECT images gated to 8 phases of the cardiac cycle were also obtained, and reformatted into cine images for evaluation of ejection fraction. Comparison: none Findings: Presence or absence of symptoms is not reported on the cardiology report. Per cardiology report, resting EKG demonstrates normal sinus rhythm. Presence or absence of ST changes is not reported on the cardiology report. Imaging demonstrates small focal perfusion abnormality in the apex which appears to be reversible. There is a fixed perfusion defect in the anterior wall near the base without any evidence of reperfusion.. Calculated post stress ejection fraction 46%.. Gated images demonstrate equivocally slightly decreased anterior wall motion Impression: Nonischemic clinical response to pharmacologic stress, per cardiology report Nonischemic electrocardiographic response to pharmacologic stress, per cardiology report Apparent small reversible perfusion defect at the apex, suspicious for small area of ischemia Fixed perfusion defect, consistent with infarct, involving the anterior wall Calculated post stress ejection fraction 46%
[2018-05-30 16:00] VITALS: BP 121/68
--- NOTE | 2018-05-30 18:59 | Physician Query ---
PHYSICIAN DOCUMENTATION QUERY Diagnosis Clarification Dear Dr: Bradly Marie Paiva : Date: MR #: Patient Name: Admit Date: Account# Documentation clarification is required to meet compliance, accuracy in coding and severity of illness reflection for your patient. Doctor, This is a 77-year-old male, who presented to the emergency room yesterday with chest pressure and epigastric discomfort of one day's duration. Dx (Cons. Note): 1. possible acute coronary syndrome. 2. Hypertensive heart disease. 5. Diastolic dysfunction with slightly elevated natriuretic peptide Lab: Pro-natriuretic peptide was 677 on admission Stress Test: Calculated post stress ejection fraction 46% C-Xray: Heart: Borderline cardiac enlargement is present Please document the appropriate diagnosis on the Discharge Summary or on this form as an addendum. (Sign and date all documentation) [ ] Acute Diastolic heart failure [ ] Chronic Diastolic heart failure [ ] Acute on chronic Diastolic heart failure [ x ] Other ___no heart failure [ ] Unable to determine MD Signature: __ Date: If you have any questions, please contact the HIM Department (Medical Records) at # . Thank You! This form is a permanent part of the medical record MTDD
--- NOTE | 2018-05-30 19:25 | NUR ---
NURSE NOTES: pt refused food because he was too full. Because he didn't eat, he did not get insulin pt refused. Advised pt to continue taking prescribed diabetes medication at home.
--- NOTE | 2018-05-30 19:27 | NUR ---
HAND-OFF: Report given to Rodney BOWLES.
--- NOTE | 2018-05-30 19:28 | NUR ---
Received report from JELENA Omer. Pt awake and resting. IV site intact and patent. Will continue with plan of care.
--- NOTE | 2018-05-30 20:30 | NUR ---
NURSE NOTES: Contacted Dr. Machado to confirm pt's stress test result was clear and I was instructed to discharge pt.
--- NOTE | 2018-05-30 20:31 | NUR ---
NURSE NOTES: D/C pt IV. Pt discharged home with no belongings. Accompanied by family upon discharge.
--- NOTE | 2018-05-30 23:45 | Discharge Summary ---
DATE OF ADMISSION: 05/28/2018 DATE OF DISCHARGE: 05/30/2018 PERTINENT HISTORY: The patient is admitted for evaluation of chest pain. He did have some nausea and vomiting and epigastric pain. There is a history of gastritis and coronary disease, diabetes, and hypertension. PERTINENT PHYSICAL FINDINGS: See the note by Dr. Palma, who saw the patient on my behalf. VITAL SIGNS: Stable. LUNGS: Clear. HEART: Regular rhythm. ABDOMEN: Soft without organomegaly. COURSE IN THE HOSPITAL: The patient is admitted with acute coronary syndrome. He had borderline troponins of uncertain significance, 0.032 and 0.041. He was seen by Dr. Yannick Porras in Cardiology consultation. He did have a myocardial perfusion scan nuclear medicine, which showed an old infarct and a small reversible perfusion defect at the apex. The patient was on adequate cardiac medicines and discharged home in stable condition. FINAL DIAGNOSES: 1. Acute coronary syndrome. 2. Nausea and vomiting. 3. Possible episode of hypoglycemia at home. 4. Diabetes. 5. Chronic kidney disease stage 3. 6. History of peripheral neuropathy. 7. History of lumbar disc. DISCHARGE DISPOSITION: Home on a diabetic diet. MEDICATIONS: Per the discharge medication list. FOLLOWUP: Follow up by Dr. Machado. Nishant Machado M.D. DR: MICHELLE JOB#: [id number] CC:
--- NOTE | 2018-05-31 | Progress Note ---
DATE: 05/30/2018 CARDIOLOGY PROGRESS NOTE SUBJECTIVE: The patient has not had any recurring chest pain since admission and he has had negative troponin levels noted. He underwent a myocardial perfusion scan today that revealed a reduced ejection fraction of 46% with large anterior scar and apical reversible ischemia of a small quantity. OBJECTIVE: VITAL SIGNS: Blood pressure 136/71 and earlier 163/89, heart rate 78, respiratory rate 21, afebrile. LUNGS: Clear. CARDIAC: Regular. Normal S1, S2 with a fourth heart sound. ABDOMEN: Soft. EXTREMITIES: No edema. IMPRESSION: 1. Ischemic cardiomyopathy with prior CABG. 2. Acute coronary syndrome, now stabilized on medical therapy. 3. Small amount of owen-infarct reversible ischemia, on myocardial perfusion scan. 4. Hypertensive heart disease. 5. Type 2 diabetes mellitus. PLAN: Aggressive medical therapy to include statin drug for LDL less than 70, anti-platelet therapy with aspirin, maximal antianginal regimen with beta-blockers and nitrates, and consideration for cardiac catheterization if the patient demonstrates recurring ischemia on current medical regimen. We will also recommend angiotensin-converting enzyme inhibitor in view of diabetes and left ventricular systolic dysfunction. Yannick Porras M.D. DR: NANNETTE JOB#: [id number] CC:
--- NOTE | 2018-05-31 18:26 | Cardiology Report ---
APPROVED REPORT EKG Measurement Heart [id number] [place] [id number] Normal sinus rhythm Normal ECG
== END 2018-05-28 22:15 | disposition home or self-care (01) ==
LOC: EMR 20:09 → EDBEDREQ 21:17 → 2E 21:30 → UNDOADMIN 21:30 → EDBEDREQ 21:43 → 2E 05-30 00:06 → UNDODISIN 05-30 21:51
DX: I24.9 Acute ischemic heart disease, unspecified (principal); I25.10 Atherosclerotic heart disease of native coronary artery without angina pectoris; I12.9 Hypertensive chronic kidney disease with stage 1 through stage 4 chronic kidney disease, or unspecified chronic kidney disease; N18.3 Chronic kidney disease, stage 3 (moderate); E11.22 Type 2 diabetes mellitus with diabetic chronic kidney disease; E11.40 Type 2 diabetes mellitus with diabetic neuropathy, unspecified; R11.2 Nausea with vomiting, unspecified; I25.119 Atherosclerotic heart disease of native coronary artery with unspecified angina pectoris; I25.5 Ischemic cardiomyopathy; Z95.1 Presence of aortocoronary bypass graft; N40.0 Benign prostatic hyperplasia without lower urinary tract symptoms; I48.91 Unspecified atrial fibrillation
CPT/HCPCS: 36415; 71045; 80053; 81003; 82550; 83880; 84484; 85025; 85610; 85730; 93005; 96374; 96375; 99285; J1650; J2405; S0028; 78452; 80048; 80061; 82962; 84443; 93017; J1815; J2785

== ENCOUNTER 2018-07-30 00:10 | Emergency (ER) | payer MEDICARE, MEDICAID ==
[~2018-07-30] VITALS: Ht 165.1 cm; Wt 72.6 kg
[~2018-07-30 00:10] MED LIST changes: +BENAZEPRIL HCL40 MG ORAL; +DONEPEZIL HCL5 M2 ORAL; +OMEPRAZOLE40 M1 ORAL; +TRADJENTA5 MG PO
--- NOTE | 2018-07-30 00:59 | NUR ---
Note dar in EDM - 07/30/18 at 0109 by FLAVIO ED Nurse Note: PT AMBUALTED TO ED FROM WITH SON C/O BLOOD IN URINE, AND ABD PAIN X1 DAY ACCOMPANIED WITH N/V. URINE SPECIMEN COLLECTED AND WILL BE SENT TO LAB
--- NOTE | 2018-07-30 00:59 | NUR ---
ED Nurse Note: PT AMBUALTED TO ED FROM HOME WITH SON C/O BLOOD IN URINE, AND ABD PAIN X1 DAY ACCOMPANIED WITH N/V. URINE SPECIMEN COLLECTED AND WILL BE SENT TO LAB
[2018-07-30 01:00] VITALS: BP 177/77
[2018-07-30] MEDS ORDERED: Lidocaine 2% Visc 15ml soln ORAL ONE (01:30)
[2018-07-30] MEDS ORDERED: Mylanta II UD 30ml ORAL ONE (01:30)
[2018-07-30 01:51] LABS: APPEARANCE,URINE CLEAR; BILIRUBIN, URINE NEGATIVE (NEGATIVE); COLOR,URINE PALE YELLOW; GLUCOSE, URINE (UA) 4+ (NEGATIVE); KETONES,URINE NEGATIVE (NEGATIVE); LEUKOCYTE ESTERASE ,URINE NEGATIVE (NEGATIVE); NITRITE,URINE NEGATIVE (NEGATIVE); PH,URINE 7 (4.5-8.0); PROTEIN,URINE 1+ (NEGATIVE); UROBILINOGEN,URINE NORMAL MG/DL (0.0-1.0)
[2018-07-30 02:06] VITALS: BP 161/69
--- NOTE | 2018-07-30 02:40 | NUR ---
ED Nurse Note: pt taken to CT
--- NOTE | 2018-07-30 02:51 | NUR ---
ED Nurse Note: pt returned from CT
--- NOTE | 2018-07-30 03:22 | Diagnostic Imaging Report ---
EXAM: CT Abdomen and Pelvis Without Intravenous Contrast CLINICAL HISTORY: ABD PAIN TECHNIQUE: Axial computed tomography images of the abdomen and pelvis without intravenous contrast. CTDI is 13 mGy and DLP is 644 mGy-cm. One or more of the following dose reduction techniques were used: automated exposure control, adjustment of the mA and/or kV according to patient size, use of iterative reconstruction technique. COMPARISON: 03/06/16 CT abdomen FINDINGS: Lung bases: No mass. No consolidation. ABDOMEN: Liver: Unremarkable. Gallbladder and bile ducts: Unremarkable. Pancreas: No ductal dilation. Spleen: Unremarkable. Adrenals: Unremarkable. Kidneys and ureters: Unchanged calcified and noncalcified cyst. No obstructing stones. No hydronephrosis. Stomach and bowel: No bowel obstruction. No bowel wall thickening. Mild hiatal hernia. Colonic diverticulosis. PELVIS: Appendix: No evidence of appendicitis. Bladder: Unchanged 4 mm stone near the anterior bladder wall Reproductive: Enlarged. ABDOMEN and PELVIS: Intraperitoneal space: Mild stranding around the descending colon.. Bones/joints: No acute fractures. Bilateral L5 pars defects without significant spondylolisthesis. Large anterior osteophyte at L3-4. Soft tissues: Unremarkable. Vasculature: No abdominal aortic aneurysm. Lymph nodes: No enlarged lymph nodes. IMPRESSION: 1. Colonic diverticulosis with mild stranding around the descending colon, likely representing early/mild diverticulitis.
--- NOTE | 2018-07-30 03:31 | Emergency Room Report ---
History of Present Illness General Chief Complaint: Male Urogenital Problems Source: Patient, Family Member, Medical Record Present Illness HPI Is a 77-year-old male with a history of reflux. Resents with chief complaint of reflux and hematuria. Reflux and pain is a chronic issue for him. Onset tonight. He is already taking Carafate and omeprazole. Worse with eating. Unknown whether or not he has endoscopy. He had 3 episode of hematuria tonight. Never had this problem before. Pain is epigastric in nature. 7 out of 10. Allergies: Coded Allergies: No Known Allergies (Unverified , 07/30/18) Patient History Past Medical History: see triage record, old chart reviewed Past Surgical History: none Pertinent Family History: none Social History: Denies: smoking Immunizations: other Reviewed Nursing Documentation: PMH: Agreed; PSxH: Agreed Nursing Documentation-PMH Hx Cardiac Problems: Yes Hx Hypertension: Yes Hx Pacemaker: No Hx Asthma: No Hx COPD: No Hx Diabetes: Yes Hx Cancer: No Hx Gastrointestinal Problems: Yes - vomiting Hx Dialysis: No Hx Neurological Problems: No Hx Cerebrovascular Accident: No Hx Seizures: No Review of Systems Eye: Denies: eye pain, blurred vision ENT: Denies: ear pain, nose congestion, throat swelling Respiratory: Denies: cough, shortness of breath Cardiovascular: Denies: chest pain, palpitations Gastrointestinal: Reports: abdominal pain; Denies: diarrhea, nausea, vomiting Genitourinary: Reports: hematuria Musculoskeletal: Denies: back pain, joint pain Skin: Denies: rash Neurological: Denies: headache, numbness Endocrine: Denies: increased thirst, increased urine Hematologic/Lymphatic: Denies: easy bruising All Other Systems: negative except mentioned in HPI Physical Exam Vital Signs Date Time Temp Pulse Resp B/P (MAP) Pulse Ox O2 Delivery O2 Flow Rate FiO2 07/30/18 00:48 98.2 91 18 190/78 (115) 98 Room Air Medical Decision Making Diagnostic Impression: Primary Impression: Gastritis Qualified Codes: K29.00 - Acute gastritis without bleeding Additional Impressions: Diverticulitis Hematuria Qualified Codes: R31.0 - Gross hematuria ER Course Presents with gastritis which is chronic in nature. He already has work-up done here. CT scan showed early diverticulitis. He also has a bladder stone. This may cause hematuria. No evidence of any infection. He may need to see a urologist for cystoscopy. CT/MRI/US Diagnostic Results CT/MRI/US Diagnostic Results : Imaging Test Ordered: CT scan of abdomen and pelvis Impression Read by radiologist. Bladder stone. Renal cysts. Colonic diverticulosis with mild stranding likely representing early diverticulitis. Last Vital Signs Date Time Temp Pulse Resp B/P (MAP) Pulse Ox O2 Delivery O2 Flow Rate FiO2 07/30/18 02:06 98.2 83 20 161/69 100 Room Air Status: improved Disposition: HOME, SELF-CARE Condition: Stable Scripts Amoxicillin/Potassium Clav 875-125* (AUGMENTIN 875-125 TABLET*) 1 Each Tablet 1 TAB ORAL TWICE A DAY, #14 TAB Prov: Ronald Mccall MD 07/30/18 Referrals: Nishant Machado MD (PCP) Additional Instructions: Follow-up with your doctor in a week. You may need a referral to see urologist for cystoscopy. Return if worse. Ronald Mccall MD Jul 30, 2018 03:31
[2018-07-30] MEDS ORDERED: AUGMENTIN 875-1 EAC1 ORAL (03:36)
[2018-07-30 03:45] VITALS: BP 155/76
--- NOTE | 2018-07-30 03:45 | NUR ---
ER DISCHARGE NOTE: Patient is cleared to be discharged per ERMD, pt is aox4, on room air, with stable vital signs. pt was given dc and prescription instructions, pt was able to verbalize understanding, pt id band removed. pt is able to ambulate with steady gait. pt took all belongings. Accompanied by daughter Poornima.
== END 2018-07-30 03:45 | disposition home or self-care (01) ==
LOC: EMR 00:57
DX: K29.00 Acute gastritis without bleeding (principal); K57.92 Diverticulitis of intestine, part unspecified, without perforation or abscess without bleeding; R31.0 Gross hematuria; I10 Essential (primary) hypertension; E11.9 Type 2 diabetes mellitus without complications; N28.1 Cyst of kidney, acquired; N21.0 Calculus in bladder
CPT/HCPCS: 74176; 81003; 99284

== ENCOUNTER 2019-12-27 16:00 | Inpatient (IN) | payer MEDICARE, MEDICAID ==
[~2019-12-27] VITALS: Ht 165.1 cm; Wt 81.6 kg
[~2019-12-27 16:00] MED LIST changes: +AUGMENTIN 875-1 EAC1 ORAL
[2019-12-27 16:11] VITALS: BP 149/73
--- NOTE | 2019-12-27 16:11 | NUR ---
ED Nurse Note: Pt wheeled in to ED from home c/o generalized weakness. Pt was referred by Dr. Machado, blood works were done. Per daughter, pt is weaker than usual, refusing to eat, drink and get out of his bed. AAOx3, verbally responsive. No SOB, on room air. Denies pain. ERMD at bedside.
--- NOTE | 2019-12-27 16:21 | Emergency Room Report ---
History of Present Illness General Chief Complaint: Generalized Weakness Source: Patient, Family Member - daughter, PMD - Dr Machado Present Illness HPI Patient is an 79-year-old male past medical history of CAD, old CVA, diabetes, hypertension, hyperlipidemia and BPH who was brought in for Covid testing by his primary care physician. Patient reports 4 days of generalized weakness and fatigue. He complains of decreased p.o. intake. Patient states that he had a mild cough 2 days ago which is now resolved. He denies any fever or chills. Patient's daughter is at the bedside who states that the patient's is at home with a fever. Patient went to his doctor's office where they hydrated him and did some lab work which demonstrated normal white blood cell count. Creatinine was a bit elevated at 1.7 his baseline is around 1.2-1.4. Patient's primary care physician tried to direct admit him but patient would require a COVID-19 PCR test before admission. Patient's primary care physician Dr. Machado came to the emergency room and stated that he did not want any further testing done while the patient was in the emergency room except for COVID-19 PCR test. He states that he will do the rest of the work-up after admission. Allergies: Coded Allergies: No Known Allergies (Unverified , 07/30/18) COVID-19 Screening Contact w/high risk pt: No Experienced COVID-19 symptoms?: No COVID-19 Testing performed RESIDENT CARE SUPERVISOR: No Patient History Reviewed Nursing Documentation: PMH: Agreed; PSxH: Agreed Nursing Documentation-PMH Hx Cardiac Problems: Yes Hx Hypertension: Yes Hx Pacemaker: No Hx Asthma: No Hx COPD: No Hx Diabetes: Yes Hx Cancer: No Hx Gastrointestinal Problems: Yes - vomiting Hx Dialysis: No Hx Neurological Problems: No Hx Cerebrovascular Accident: No Hx Seizures: No Review of Systems All Other Systems: negative except mentioned in HPI Physical Exam Vital Signs Date Time Temp Pulse Resp B/P (MAP) Pulse Ox O2 Delivery O2 Flow Rate FiO2 12/27/19 16:06 97.3 90 20 149/73 (98) 92 Room Air Sp02 EP Interpretation: abnormal - Hypoxic General Appearance: no apparent distress, alert, GCS 15, non-toxic Head: normocephalic, atraumatic Eyes: bilateral eye normal inspection, bilateral eye PERRL ENT: dry mucus membranes Neck: full range of motion, supple/symm/no masses Respiratory: no respiratory distress, no accessory muscle use, other - Scattered rhonchi Cardiovascular #1: regular rate, rhythm Gastrointestinal: normal bowel sounds, non tender, soft Rectal: deferred Musculoskeletal: normal range of motion, moves extm spontaneously Neurologic: biofuels research scientist III-XII nml as tested Psychiatric: no suicidal/homicidal ideation Skin: no rash Lymphatic: no adenopathy Medical Decision Making Diagnostic Impression: Primary Impression: COVID-19 Additional Impressions: Pneumonia Hypoxia ER Course Patient tested positive for COVID-19. Patient's chest x-ray demonstrates bilateral pulmonary infiltrates. Patient has been pancultured and started on IV antibiotics. Patient also given IV steroids and breathing treatments ordered for mild hypoxia. Patient to be admitted for further treatment and evaluation. EKG Diagnostic Results Troponin ordered: Yes When was troponin ordered?: Dec 27, 2019 EKG Time: 17:41 EP Interpretation: Mayr Rai MD Rate: normal - 88 BPM Rhythm: NSR ST Segments: no acute changes ASA given to the pt in ED: No Chest X-Ray Diagnostic Results Chest X-Ray Diagnostic Results : Chest X-Ray Ordered: Yes # of Views/Limited/Complete: 1 View Indication: Other - Cough EP Interpretation: Yes Interpretation: no effusion, no pneumothorax, other - Bilateral patchy infiltrates in the central and upper lungs Impression: Other - Pneumonia Electronically Signed by: Mary Rai MD Last Vital Signs Date Time Temp Pulse Resp B/P (MAP) Pulse Ox O2 Delivery O2 Flow Rate FiO2 12/27/19 16:06 97.3 90 20 149/73 (98) 92 Room Air Disposition: ADMITTED INPATIENT Condition: Critical Physician Consult: Dr. Carter MD Additional Instructions: Please note that this report is being documented using [employer] technology. This can lead to erroneous entry secondary to incorrect interpretation by the dictating instrument. Mary Rai M.D. Dec 27, 2019 16:21
--- NOTE | 2019-12-27 16:37 | NUR ---
ED Nurse Note: IV line established. Covid swab sent.
[2019-12-27] MEDS ORDERED: Albuterol ud Inhalation HHN SCH (17:30)
[2019-12-27] MEDS ORDERED: dexAMETHasone 10mg/ml Inj IV ONE (17:30)
--- NOTE | 2019-12-27 17:50 | Diagnostic Imaging Report ---
EXAM: XR Chest, 1 View CLINICAL HISTORY: COUGH TECHNIQUE: Frontal view of the chest. COMPARISON: Chest x-ray dated 05/28/2017 FINDINGS: Lungs: Scattered airspace opacities within the central and upper lungs which may represent pulmonary vascular congestion versus an infectious process. Pleural space: Unremarkable. Heart: Unremarkable. Mediastinum: Unremarkable. Bones/joints: Evidence of prior median sternotomy. IMPRESSION: Scattered airspace opacities within the central and upper lungs which may represent pulmonary vascular congestion versus an infectious process.
[2019-12-27] MEDS ORDERED: cefTRIAXone 1 GM in D5W 55 ML IVPB ONE (18:00)
[2019-12-27] MEDS ORDERED: Azithromycin 500 MG in D5W 275 ML IV ONE (18:00)
--- NOTE | 2019-12-27 18:03 | NUR ---
ED Nurse Note: TELEPHONE REPORT GIVEN TO JELENA IGLESIAS FOR CONTINUITY OF CARE
--- NOTE | 2019-12-27 18:06 | NUR ---
NURSE NOTES: Received report from ER Nurse Gisell, will wait for pt to arrive to the floor
--- NOTE | 2019-12-27 18:15 | NUR ---
TRANSFER: Patient transferred to [facility]. Pt AAOx3, verbally responsive. On room air. IV line on right forearm 20g patent and intact. No skin issues. All belongings sent with the patient. Family aware of the transfer.
--- NOTE | 2019-12-27 18:20 | NUR ---
NURSE NOTES: Pt arrived to the floor via gurney,pt stood up and transferred self to the hospital bed with stand by assist, pt belongings verified and signed for , pt is a/o3, breath regular unlabored on RA no s/s of distress , asses pt and skin is intact , pt denies any pain at this time . Vitals T 97.7 O2sat 96 RR 21 BP 168/95 Osat 97 at RA. will endorse to oncoming nurse for admission orders
[2019-12-27 18:47] LABS: BASOPHILS % (AUTO) 0.4 % (0.0-2.0); EOSINOPHILS % (AUTO) 0.1 % (0.0-3.0); HEMATOCRIT 34.5 % (42.0-52.0); HEMOGLOBIN 11.1 G/DL (14.2-18.0); LYMPHOCYTES % (AUTO) 14.1 % (20.0-45.0); MEAN CORPUSCULAR VOLUME 88 FL (80-99); MONOCYTES % (AUTO) 10.5 % (1.0-10.0); PLATELET COUNT 119 K/UL (150-450); RED BLOOD COUNT 3.93 M/UL (4.70-6.10); RED CELL DISTRIBUTION WIDTH 13.1 % (11.6-14.8); WHITE BLOOD COUNT 5.8 K/UL (4.8-10.8)
[2019-12-27 19:06] LABS: ANION GAP 11 mmol/L (5-15); BLOOD UREA NITROGEN 35 mg/dL (7-18); CALCIUM 7.5 MG/DL (8.5-10.1); CARBON DIOXIDE 19 MMOL/L (21-32); CHLORIDE 108 MMOL/L (98-107); CREATININE 1.7 MG/DL (0.55-1.30); POTASSIUM 4.2 MMOL/L (3.5-5.1); SODIUM 138 MMOL/L (136-145)
[2019-12-27 19:24] LABS: ALANINE AMINOTRANSFERASE 27 U/L (12-78); ALBUMIN 2.6 G/DL (3.4-5.0); ALBUMIN/GLOBULIN RATIO 0.7 (1.0-2.7); ALKALINE PHOSPHATASE 48 U/L (46-116); ASPARTATE AMINO TRANSFERASE 31 U/L (15-37); BILIRUBIN,TOTAL 0.4 MG/DL (0.2-1.0); CREATINE KINASE 107 U/L (26-308); FERRITIN 199 NG/ML (8-388); LACTATE DEHYDROGENASE 175 U/L (81-234)
--- NOTE | 2019-12-27 19:30 | NUR ---
NURSE HAND-OFF: Important Events on Shift: new admit Patient Status: stable Diet: not obtained yet Pending Orders: Pending Results/Labs: Pending MD notification: Latest Vital Signs: Temperature 97.3 , Pulse 78 , B/P 138 /76 , Respiratory Rate 19 , O2 SAT 94 , Room Air, O2 Flow Rate . Vital Sign Comment: Latest Bay Fall Score: 35 Fall Risk: Safety Measures: Call light , Bed Alarm , Side Rails , Bed position . Fall Precautions: Report given to Julian BOWLES .
--- NOTE | 2019-12-27 19:30 | NUR ---
NURSE NOTES: Receive a report from JELENA Viramontes.
--- NOTE | 2019-12-27 19:45 | NUR ---
NURSE NOTES: Receive a call from Dr. Machado and got admissions orders including consult with Dr. Salazar. Notify Dr. Machado for pt's Troponin level as 0.091. Receive an order for transferring to Tele unit if there is an isolated room with EKG and troponin tomorrow. PLT 119K @ ER but still okay to give Heparin 5000 u sc q12hrs. Pt is getting Novolog sliding scale only before meals but no QHS. Order noted and carried out.
[2019-12-27] MEDS ORDERED: Sennosides 8.6mg tab ORAL PRN (20:00)
[2019-12-27] MEDS ORDERED: Metoprolol Succinate XL 50mg tab ORAL SCH (20:00)
--- NOTE | 2019-12-27 20:15 | History and Physical Report ---
DATE OF ADMISSION: 12/27/2019 CHIEF COMPLAINT AND REASON FOR HOSPITALIZATION: The patient admitted with generalized weakness and new diagnosis of COVID-19 positive. HISTORY OF PRESENT ILLNESS: Patient is an 79-year-old gentleman, well known to me with a history of adult-onset diabetes, coronary artery disease, prior CVAs who came to my office brought by his daughter with increasing weakness, inability to walk where he usually walks normally, eating poorly, anorexic, dehydration. He had a mild cough last week, but no true shortness of breath and had a pulse ox of 95% on room air in my office. The patient because of his generalized complaint was sent for hospitalization. He was unable to manage at home. He is found to have a positive COVID-19 test and bilateral infiltrates on chest x-ray. He was hospitalized in [facility] in June of 2017 and had MRI at that time, which showed old infarct right frontal, right occipital, and right cerebellar chronic infarcts. He has also had degenerative disc disease at L3-L4 and L4-L5 and has had some sciatica and gait disorder and this has generally been managed with exercise and taking gabapentin. There is a history of gastritis and prior GI bleeds. He had a cardiac stress test I believe within the last year, which showed a fixed deficit and no new ischemia. He has had a prior CA and coronary bypass surgery. ALLERGIES: None known. CURRENT MEDICATIONS: Tramadol 50 mg b.i.d. p.r.n., DSS 250 b.i.d., metformin 1000 mg b.i.d., vitamin D3 2000 units daily, metoprolol succinate 100 mg b.i.d., atorvastatin 20 mg daily, gabapentin 300 mg b.i.d., amlodipine 10 mg daily, benazepril 40 mg daily, senna p.r.n., donepezil 10 mg daily, tamsulosin 0.4 mg b.i.d., hydralazine 100 mg b.i.d., loratadine 10 mg daily p.r.n., Tradjenta 5 mg daily, omeprazole 40 mg b.i.d., glipizide 5 mg every morning, NyQuil [id number] p.r.n., Flonase nasal p.r.n. HABITS: He is a former smoker, quit more than 35 years ago. He has a pack a day for about 20 years. Alcohol, social in the past. None recently. PAST SURGICAL HISTORY: Include coronary bypass surgery, prostate surgery for BPH in 2010 and 2013 again. SYSTEM REVIEW: HEAD, EYES, EARS, NOSE, AND THROAT: He wears eye glasses. No known diabetic retinopathy. Hearing is good. ENDOCRINE: History of diabetes, well controlled. No thyroid disease. PULMONARY: He has had bronchitis in the past and a former smoker. See history of present illness. There is no history of TB. CARDIAC: History of coronary bypass surgery and a stress test as noted above. No chest pain recently. GASTROINTESTINAL: He has had gastritis and iron deficiency anemia and GI bleeding in the past and I believe he has a large hiatal hernia. GENITOURINARY: He is voiding well. Has nocturia 2 to 3 times. NEUROLOGIC: See history of present illness. MUSCULOSKELETAL: History of sciatica. PHYSICAL EXAMINATION: GENERAL: The patient is looks chronically ill, alert. VITAL SIGNS: When seen in my office, pulse 95, blood pressure 142/80, temperature 98.6, pulse ox 95. HEAD, EYES, EARS, NOSE, AND THROAT: Sclerae are nonicteric. Ocular motions intact in all directions. Oral mucosa slightly dry. NECK: No adenopathy. LUNGS: Clear. HEART: Regular rhythm. I hear no murmur. ABDOMEN: Soft without organomegaly or masses. EXTREMITIES: No edema, cyanosis, or clubbing. NEUROLOGIC: The patient is alert and responsive. Ocular motions intact in all directions. Smile symmetric. He moves all extremities. He has generalized weakness and needs max assist sit to stand. IMPRESSION: 1. COVID-19 pneumonia with some hypoxemia. 2. Generalized weakness, likely related to COVID-19. 3. Mild dehydration. 4. Adult-onset diabetes. 5. Coronary artery disease. 6. Hypertensive heart disease. 7. History of gastritis and prior GI bleeding. PLAN: The patient will be hydrated. Started on steroids and remdesivir if approved. Watch closely for his comorbidities. I have discussed this case with the family and consultants. Nishant Machado M.D. DR: CAROLYNN JOB#: [id number] CC:
[2019-12-27 20:30] VITALS: BP 169/103
--- NOTE | 2019-12-27 20:30 | NUR ---
NURSE NOTES: Pt is awake and alert, Turkish speaking. No acute distress/ respiratory distress noted. Denies any pain. No chest pain noted. No skin issue noted but noted generalized weakness. Provide fall precautions. Given unit orientation. Bed is lowest and locked. Call light within reach. Will continue to monitor.
[2019-12-27] MEDS ORDERED: Heparin 5000 units/ml inj SUBQ SCH (21:00)
[2019-12-27 21:11] LABS: BASOPHILS % (AUTO) 0.1 % (0.0-2.0); HEMATOCRIT 37.7 % (42.0-52.0); HEMOGLOBIN 12.3 G/DL (14.2-18.0); LYMPHOCYTES % (AUTO) 13.6 % (20.0-45.0); MEAN CORPUSCULAR VOLUME 88 FL (80-99); NEUTROPHILS % (AUTO) 74.3 % (45.0-75.0); PLATELET COUNT 115 K/UL (150-450); RED CELL DISTRIBUTION WIDTH 13.1 % (11.6-14.8); WHITE BLOOD COUNT 5.9 K/UL (4.8-10.8)
[2019-12-27] MEDS: Tamsulosin 0.4mg cap ORAL SCH (21:24)
[2019-12-27] MEDS: cefTRIAXone 1gm/D5W 55ml IVPB SCH ×2 (21:25)
[2019-12-27] MEDS: Atorvastatin 20mg tab ORAL SCH (21:25)
[2019-12-27] MEDS: Donepezil 10mg tab ORAL SCH (21:25)
[2019-12-27] MEDS: HydrALAZINE 50mg tab ORAL SCH (21:29)
--- NOTE | 2019-12-27 21:30 | NUR ---
NURSE NOTES: BS checked as 68mg/dL. Awake and alert but feeling hungry. Pt has not eaten yet. Provide OJ and sandwich. Will continue to monitor.
[2019-12-27] MEDS: Aspirin Baby 81mg ORAL SCH (21:34)
[2019-12-27] MEDS ORDERED: Loading Dose:Remdesivir 200mg/NS 210ml IV SCH ×2 (22:00)
--- NOTE | 2019-12-27 22:30 | NUR ---
NURSE NOTES: BS rechecked as 138mg/dL. On ATB started for Covid-19 positive with isolation. No S/E noted. Will continue to monitor.
[2019-12-28] VITALS: BP 159/90
--- NOTE | 2019-12-28 03:05 | NUR ---
NURSE NOTES: Pt will transfer to [id number] as ordered.
[2019-12-28 04:00] VITALS: BP 168/96
--- NOTE | 2019-12-28 04:00 | NUR ---
NURSE NOTES: Given report to JELENA Leon. Pt is awake and alert. Inform of transferring the unit. BT 98.2 but says feeling cold. Provide one more blanket so far. No respiratory distress or cough. Will continue to monitor.
--- NOTE | 2019-12-28 04:30 | NUR ---
NURSE NOTES: Pt transfers to [facility] via hospital bed with belonging, chart and medication. No conditions changed.
--- NOTE | 2019-12-28 04:31 | NUR ---
NURSE NOTES: Pt received from JELENA Jordan. Pt is resting comfortably in bed and denies any pain or SOB. PT is A/Ox4 and requires assistance with ambulation due to weakness; Pt c/o being cold and Temp 98.6. Pt is lethargic and is unable to assist much with movement in the bed. Pt has cardiac monitoring ST and asymptomatic. Pt is breathing unlabored on RA. Pt has RFA 20G and LH18G both patent with skin dry and intact. Pt uses urinal and bedside commode for toileting. Bed is locked in lowest position and call light is within reach. Will continue to monitor.
[2019-12-28] MEDS: sitaGLIPtin 50mg tab ORAL SCH (06:19)
[2019-12-28] MEDS: NovoLOG Insulin Flexpen SUBQ SCH ×3 (06:30→17:12)
[2019-12-28] MEDS ORDERED: NovoLOG Insulin Flexpen SUBQ SCH (06:30)
--- NOTE | 2019-12-28 07:30 | NUR ---
NURSE NOTES: Received patient in bed. Awake, A/O x4. On room air, Patietn denies pain. Iv in the Left hand running IVF as ordered. Bed low and locked, side rails up x2.
[2019-12-28 07:35] LABS: BASOPHILS % (AUTO) 0.5 % (0.0-2.0); HEMATOCRIT 34.6 % (42.0-52.0); HEMOGLOBIN 11.6 G/DL (14.2-18.0); LYMPHOCYTES % (AUTO) 16.3 % (20.0-45.0); MEAN CORPUSCULAR VOLUME 85 FL (80-99); MONOCYTES % (AUTO) 9.4 % (1.0-10.0); NEUTROPHILS % (AUTO) 73.8 % (45.0-75.0); PLATELET COUNT 118 K/UL (150-450); RED BLOOD COUNT 4.06 M/UL (4.70-6.10); RED CELL DISTRIBUTION WIDTH 13.4 % (11.6-14.8); WHITE BLOOD COUNT 5.6 K/UL (4.8-10.8)
--- NOTE | 2019-12-28 07:52 | NUR ---
NURSE HAND-OFF REPORT: Important Events on Shift:Pt transferred to tele floor. Patient Status: Stable Diet: CCHO Medium Pending Orders: Pending Results/Labs:AM Labs Pending MD notification: Latest Vital Signs: Temperature 98.2 , Pulse 100 , B/P 168 /96 , Respiratory Rate 20 , O2 SAT 96 , Room Air, O2 Flow Rate . Vital Sign Comment: VSS EKG Rhythm: Rhythm change?: MD Notified?: - MD Response: Latest Bay Fall Score: 45 Fall Risk: High Risk Safety Measures: Call light Within Reach, Bed Alarm , Side Rails Side Rails x2, Bed position Low and Locked. Fall Precautions: Yellow Socks Door Sign Patient Fall Education Report given to JELENA Glover.
[2019-12-28 08:00] VITALS: BP 197/80
[2019-12-28 08:00] LABS: ALBUMIN 2.6 G/DL (3.4-5.0); ALBUMIN/GLOBULIN RATIO 0.6 (1.0-2.7); BILIRUBIN,DIRECT 0.2 MG/DL (0.0-0.3); BILIRUBIN,TOTAL 0.4 MG/DL (0.2-1.0); CALCIUM 7.9 MG/DL (8.5-10.1); CREATININE 1.5 MG/DL (0.55-1.30); POTASSIUM 4.1 MMOL/L (3.5-5.1)
[2019-12-28] MEDS: dexAMETHasone 10mg/ml Inj IV SCH (08:11)
[2019-12-28] MEDS: Vitamin D 1000 IU Tab ORAL SCH (08:11)
[2019-12-28] MEDS: HydrALAZINE 50mg tab ORAL SCH ×2 (08:11→17:13)
[2019-12-28] MEDS: Aspirin Baby 81mg ORAL SCH (08:12)
[2019-12-28] MEDS: Docusate 250mg cap ORAL SCH ×2 (08:12→17:13)
--- NOTE | 2019-12-28 08:55 | NUR ---
CASE MANAGEMENT:REVIEW 79 YR OLD MALE PRESENTED TO ER CC: REFUSING TO EAT,DRINK OR GET OUT OF BED SI: COVID PNA. HYPOXIA 97.4 90 20 149/73 92% ON RA H/H-11.1/34.5 PLT-119 BUN+35 CR+1.7 TROPONIN(+) 0.091 IS: 1L NS BOLUS IV DECADRON IV AZITHROMYCIN IV ROCEPHIN COVID SWAB(+) : TO TELEMETRY DCP: FROM HOME
[2019-12-28] MEDS ORDERED: cefTRIAXone 1gm/D5W 55ml IVPB SCH ×2 (09:00)
[2019-12-28] MEDS ORDERED: dexAMETHasone 10mg/ml Inj IV SCH (09:00)
[2019-12-28] MEDS ORDERED: Albuterol 90mcg Inhaler 8gm INH PRN (10:00)
--- NOTE | 2019-12-28 10:06 | Consultation ---
History of Present Illness General Date patient seen: Dec 28, 2019 Time patient seen: 08:30 Chief Complaint: Generalized Weakness Referring physician: dr Machado Reason for Consultation: COVID 19 PNA Present Illness HPI 79 years old male with past medical history of coronary artery disease, history of CVA, diabetes, hypertension, hyperlipidemia , BPH initially presented to his PMD office , accompanied by his daughter, with c/o 4 days of generalized weakness and fatigue. Patient reported decreased oral intake. Patient reported mild dry cough 2 days ago, which resolved. No fever or chills. Patient was hydrated . Laboratory work-up revealed no leukocytosis, creatinine was slightly elevated at 1.7 , with his baseline around 1.2-1.4. Patient presented to emergency room for further evaluation per PMD recommendations. Upon evaluation vital signs revealed no fever, mild hypoxemia. Rapid COVID-19 was positive. Laboratory work-up revealed no leukocytosis , hemoglobin 11.1, hematocrit 34.5 , platelet count 119. D-dimer 0.7, ferritin 199, LDH 175, CRP 9.4 . BUN 35, creatinine 1.7. Chest x-ray revealed scattered airspace opacities in the central and upper lungs, which may represent pulmonary vascular congestion versus infectious process. Troponin minimally elevated 0.091 , pro BNP 3722 . EKG revealed sinus rhythm , no acute ischemic changes In emergency department patient received empiric antibiotic, steroids, liter of fluids and admitted for further management. Pulmonary consult was requested to assist in management of this patient. PMH: HTN, CVA, DM< CAD, BPH, DDD L spine Past surgery: recent urological procedure Allergy: none Residence: home with family Social history: no smoking currently ( but prior smoker), no ETOH, no illicit drug use Family history: non contributory Full code Allergies: Coded Allergies: No Known Allergies (Unverified , 07/30/18) Medication History Scheduled Amlodipine Besylate (Norvasc), 10 MG ORAL DAILY, (Reported) Amoxicillin/Potassium Clav 875-125* (Augmentin 875-125 Tablet*), 1 TAB ORAL TWICE A DAY Benazepril Hcl* (Benazepril Hcl*), 40 MG ORAL DAILY, (Reported) Donepezil Hcl* (Donepezil Hcl*), 5 MG ORAL DAILY, (Reported) Gabapentin* (Gabapentin*), 600 MG ORAL QHS, (Reported) Linagliptin (Tradjenta), 5 MG PO DAILY, (Reported) Metoprolol Succinate* (Metoprolol Succinate*), 100 MG ORAL TWICE A DAY, (Reported) Omeprazole (Omeprazole), 40 MG ORAL BID, (Reported) Tamsulosin HCl (Flomax), 0.4 MG ORAL TWICE A DAY, (Reported) Scheduled PRN Tramadol Hcl* (Ultram*), 50 MG ORAL TID PRN for For Pain, (Reported) Patient History Healthcare decision maker N Resuscitation status Full code Advanced Directive on File Review of Systems Constitutional: Reports: weakness Eye: Reports: no symptoms ENT: Reports: no symptoms Respiratory: Reports: shortness of breath Cardiovascular: Reports: other - HTN, HLD Gastrointestinal: Reports: other - poor appetite Genitourinary: Reports: other - hx of BPH and recent urological procedure Musculoskeletal: Reports: other - back pain, hx of DDD L spine Skin: Reports: no symptoms Psychiatric: Reports: no symptoms Neurological: Reports: other - hx of CVA Endocrine: Reports: other - DM Hematologic/Lymphatic: Reports: no symptoms Physical Exam General Appearance: other - elderly male in NAD Lines, tubes and drains: peripheral HEENT: normocephalic, atraumatic, anicteric, mucous membranes moist Neck: supple Respiratory/Chest: no respiratory distress, no accessory muscle use Cardiovascular/Chest: normal rate, regular rhythm Abdomen: normal bowel sounds, non tender, soft Extremities: no calf tenderness, normal capillary refill, no edema Neurologic: alert, responsive, other - moves all extremities Musculoskeletal: atrophy - BLE Last 24 Hour Vital Signs Date Time Temp Pulse Resp B/P (MAP) Pulse Ox O2 Delivery O2 Flow Rate FiO2 12/28/19 08:12 197/80 12/28/19 08:12 65 197/80 12/28/19 08:11 197/80 12/28/19 04:00 131 12/28/19 04:00 98.2 100 20 168/96 (120) 96 12/28/19 00:00 97.5 100 20 159/90 (113) 96 12/27/19 21:29 169/103 12/27/19 21:00 Room Air 12/27/19 20:30 97.2 100 20 169/103 (125) 96 12/27/19 18:15 97.3 78 19 138/76 94 Room Air 12/27/19 16:11 90 20 Room Air 12/27/19 16:11 97.3 90 20 149/73 92 Room Air 12/27/19 16:06 97.3 90 20 149/73 (98) 92 Room Air Intake and Output 12/27/19 12/28/19 19:00 07:00 Intake Total 1000 ml 600 ml Balance 1000 ml 600 ml Intake Oral 150 ml IV Total 1000 ml 450 ml # Voids 1 # Bowel Movements 1 Laboratory Tests Test 12/27/19 17:14 12/27/19 18:15 12/27/19 20:40 12/27/19 21:44 Arterial Blood pH 7.360 (7.350-7.450) Arterial Blood Partial Pressure CO2 35.8 mmHg (35.0-45.0) Arterial Blood Partial Pressure O2 76.6 mmHg (75.0-100.0) Arterial Blood HCO3 19.8 mmol/L (22.0-26.0) L Arterial Blood Oxygen Saturation 94.3 % (95-100) L Arterial Blood Base Excess -5.0 (-2-2) L Carlos Test Positive White Blood Count 5.8 K/UL (4.8-10.8) 5.9 K/UL (4.8-10.8) Red Blood Count 3.93 M/UL (4.70-6.10) L 4.30 M/UL (4.70-6.10) L Hemoglobin 11.1 G/DL (14.2-18.0) L 12.3 G/DL (14.2-18.0) L Hematocrit 34.5 % (42.0-52.0) L 37.7 % (42.0-52.0) L Mean Corpuscular Volume 88 FL (80-99) 88 FL (80-99) Mean Corpuscular Hemoglobin 28.3 PG (27.0-31.0) 28.5 PG (27.0-31.0) Mean Corpuscular Hemoglobin Concent 32.3 G/DL (32.0-36.0) 32.6 G/DL (32.0-36.0) Red Cell Distribution Width 13.1 % (11.6-14.8) 13.1 % (11.6-14.8) Platelet Count 119 K/UL (150-450) L 115 K/UL (150-450) L Mean Platelet Volume 8.7 FL (6.5-10.1) 8.5 FL (6.5-10.1) Neutrophils (%) (Auto) 75.0 % (45.0-75.0) 74.3 % (45.0-75.0) Lymphocytes (%) (Auto) 14.1 % (20.0-45.0) L 13.6 % (20.0-45.0) L Monocytes (%) (Auto) 10.5 % (1.0-10.0) H 12.0 % (1.0-10.0) H Eosinophils (%) (Auto) 0.1 % (0.0-3.0) 0.0 % (0.0-3.0) Basophils (%) (Auto) 0.4 % (0.0-2.0) 0.1 % (0.0-2.0) Prothrombin Time 11.4 SEC (9.30-11.50) Prothromb Time International Ratio 1.0 (0.9-1.1) Activated Partial Thromboplast Time 30 SEC (23-33) D-Dimer 0.70 mg/L FEU (0.00-0.49) H Sodium Level 138 MMOL/L (136-145) Potassium Level 4.2 MMOL/L (3.5-5.1) Chloride Level 108 MMOL/L (98-107) H Carbon Dioxide Level 19 MMOL/L (21-32) L Anion Gap 11 mmol/L (5-15) Blood Urea Nitrogen 35 mg/dL (7-18) H Creatinine 1.7 MG/DL (0.55-1.30) H Estimat Glomerular Filtration Rate 39.0 mL/min (>60) Glucose Level 70 MG/DL (74-106) L Lactic Acid Level 0.60 mmol/L (0.4-2.0) Calcium Level 7.5 MG/DL (8.5-10.1) L Magnesium Level 1.7 MG/DL (1.8-2.4) L Ferritin 199 NG/ML (8-388) Total Bilirubin 0.4 MG/DL (0.2-1.0) Aspartate Amino Transf (AST/SGOT) 31 U/L (15-37) Alanine Aminotransferase (ALT/SGPT) 27 U/L (12-78) Alkaline Phosphatase 48 U/L (46-116) Lactate Dehydrogenase 175 U/L (81-234) Total Creatine Kinase 107 U/L (26-308) Troponin I 0.091 ng/mL (0.000-0.056) C-Reactive Protein, Quantitative 9.4 mg/dL (0.00-0.90) H Pro-B-Type Natriuretic Peptide 372 pg/mL (0-125) H Total Protein 6.5 G/DL (6.4-8.2) Albumin 2.6 G/DL (3.4-5.0) L Globulin 3.9 g/dL Albumin/Globulin Ratio 0.7 (1.0-2.7) L POC Whole Blood Glucose 68 MG/DL (74-106) L Test 12/27/19 22:45 12/28/19 06:30 POC Whole Blood Glucose 138 MG/DL (74-106) H White Blood Count 5.6 K/UL (4.8-10.8) Red Blood Count 4.06 M/UL (4.70-6.10) L Hemoglobin 11.6 G/DL (14.2-18.0) L Hematocrit 34.6 % (42.0-52.0) L Mean Corpuscular Volume 85 FL (80-99) Mean Corpuscular Hemoglobin 28.6 PG (27.0-31.0) Mean Corpuscular Hemoglobin Concent 33.5 G/DL (32.0-36.0) Red Cell Distribution Width 13.4 % (11.6-14.8) Platelet Count 118 K/UL (150-450) L Mean Platelet Volume 8.3 FL (6.5-10.1) Neutrophils (%) (Auto) 73.8 % (45.0-75.0) Lymphocytes (%) (Auto) 16.3 % (20.0-45.0) L Monocytes (%) (Auto) 9.4 % (1.0-10.0) Eosinophils (%) (Auto) 0.0 % (0.0-3.0) Basophils (%) (Auto) 0.5 % (0.0-2.0) Erythrocyte Sedimentation Rate 53 MM/HR (0-20) H Sodium Level 137 MMOL/L (136-145) Potassium Level 4.1 MMOL/L (3.5-5.1) Chloride Level 105 MMOL/L (98-107) Carbon Dioxide Level 20 MMOL/L (21-32) L Anion Gap 12 mmol/L (5-15) Blood Urea Nitrogen 30 mg/dL (7-18) H Creatinine 1.5 MG/DL (0.55-1.30) H Estimat Glomerular Filtration Rate 45.0 mL/min (>60) Glucose Level 72 MG/DL (74-106) L Hemoglobin A1c 6.9 % (4.3-6.0) H Calcium Level 7.9 MG/DL (8.5-10.1) L Total Bilirubin 0.4 MG/DL (0.2-1.0) Direct Bilirubin 0.2 MG/DL (0.0-0.3) Aspartate Amino Transf (AST/SGOT) 33 U/L (15-37) Alanine Aminotransferase (ALT/SGPT) 24 U/L (12-78) Alkaline Phosphatase 54 U/L (46-116) Troponin I 0.110 ng/mL (0.000-0.056) C-Reactive Protein, Quantitative 11.0 mg/dL (0.00-0.90) H Total Protein 6.7 G/DL (6.4-8.2) Albumin 2.6 G/DL (3.4-5.0) L Globulin 4.1 g/dL Albumin/Globulin Ratio 0.6 (1.0-2.7) L Microbiology Date/Time Source Procedure Growth Status 12/27/19 16:35 Nasopharynx SARS-CoV-2 RdRp Gene Assay - Final Complete Height (Feet): 5 Height (Inches): 5.00 Weight (Pounds): 180 Medications Current Medications Medications (Trade) Dose Ordered Sig/Carol Route PRN Reason Start Time Stop Time Status Last Admin Dose Admin Acetaminophen (Tylenol) 650 mg Q4H PRN ORAL FEVER 12/27/19 19:45 01/26/20 19:44 Acetaminophen (Tylenol) 650 mg Q4H PRN ORAL PAIN 1-6 12/27/19 19:45 01/26/20 19:44 Al Hydroxide/Mg Hydroxide (Mylanta) 30 ml Q4H PRN ORAL GI UPSET 12/27/19 20:00 12/11/20 19:59 Albuterol Sulfate (Proventil) 2.5 mg Q15MIN HHN 12/27/19 17:30 01/01/20 17:29 Amlodipine Besylate (Norvasc) 10 mg DAILY ORAL 12/28/19 09:00 01/27/20 08:59 12/28/19 08:12 Aspirin (ASA) 81 mg DAILY ORAL 12/27/19 19:45 02/10/20 19:44 12/28/19 08:12 Atorvastatin Calcium (Lipitor) 20 mg BEDTIME ORAL 12/27/19 21:00 03/26/20 20:59 12/27/19 21:25 Benazepril HCl (Lotensin) 40 mg DAILY ORAL 12/28/19 09:00 01/27/20 08:59 12/28/19 08:12 Ceftriaxone Sodium 1 gm/ Dextrose 55 ml @ 110 mls/hr Q24H IVPB 12/27/19 22:00 01/03/20 21:59 12/27/19 21:25 Dexamethasone Sodium Phosphate (Decadron 10mg/ ml Inj) 6 mg DAILY IV 12/28/19 09:00 01/06/20 09:01 12/28/19 08:11 Dextrose (Dextrose 50%) 25 ml Q30M PRN IV Hypoglycemia 12/27/19 20:00 03/26/20 19:59 Dextrose (Dextrose 50%) 50 ml Q30M PRN IV Hypoglycemia 12/27/19 20:00 03/26/20 19:59 Docusate Sodium (Colace) 250 mg BID ORAL 12/28/19 09:00 01/27/20 08:59 12/28/19 08:12 Donepezil HCl (Aricept) 10 mg QHS ORAL 12/27/19 21:00 01/26/20 20:59 12/27/19 21:25 Gabapentin (Neurontin) 300 mg BID ORAL 12/27/19 20:00 01/26/20 19:59 12/28/19 08:11 Heparin Sodium (Porcine) (Heparin 5000 units/ml) 5,000 units EVERY 12 HOURS SUBQ 12/27/19 21:00 02/10/20 20:59 12/27/19 21:28 Hydralazine HCl (Apresoline) 100 mg BID ORAL 12/27/19 20:00 03/26/20 19:59 12/28/19 08:11 Insulin Aspart (NovoLOG) BEFORE MEALS SUBQ 12/28/19 06:30 03/27/20 06:29 Metoprolol Succinate (Toprol XL) 100 mg BID ORAL 12/27/19 20:00 03/26/20 19:59 UNV Ondansetron HCl (Zofran) 4 mg Q4H PRN IVP Nausea & Vomiting 12/27/19 19:45 01/26/20 19:44 Pantoprazole (Protonix) 40 mg EVERY 12 HOURS ORAL 12/27/19 21:00 01/26/20 20:59 12/28/19 08:12 Remdesivir 100 mg/ Sodium Chloride 250 ml @ 250 mls/hr Q24H IV 12/28/19 22:00 12/31/19 22:59 Sennosides (Senokot) 8.6 mg BIDPRN PRN ORAL Constipation 12/27/19 20:00 01/26/20 19:59 Sitagliptin Phosphate (Januvia) 50 mg ACBREAKFAST ORAL 12/28/19 06:30 01/27/20 06:29 12/28/19 06:19 Sodium Chloride 1,000 ml @ 75 mls/hr [id number] IV 12/27/19 19:45 01/26/20 19:44 12/27/19 21:25 Tamsulosin HCl (Flomax) 0.4 mg BEDTIME ORAL 12/27/19 21:00 01/26/20 20:59 12/27/19 21:24 Tramadol HCl (Ultram) 50 mg Q6H PRN ORAL PAIN 7-10 12/27/19 20:00 01/03/20 19:59 Vitamin D (Vitamin D) 2,000 intlu DAILY ORAL 12/28/19 09:00 01/27/20 08:59 12/28/19 08:11 Assessment/Plan Assessment/Plan: ASSESSMENT Covid 19 PNA Mild hypoxemia Prior smoker Elevated troponin LACIE probably due to mild dehydration HTN DM, Hx of CVA BPH PLAN OF CARE tele isolation titrate to keep sat > 92%, Proventil MDI prn steroids, remdesivvir abx a/c with Heparin fup with CXR fup with inflammatory markers zinc, vit C repeat troponin in am IV hydration home meds resumed as per PMD BP an BS management PT eval and Rx, fall precautions supportive care case discussed and evaluated by supervising physician Leonora Rich NP Dec 28, 2019 10:05
--- NOTE | 2019-12-28 10:14 | General Progress Note ---
Subjective Constitutional: Reports: weakness HEENT: Reports: no symptoms Cardiovascular: Reports: other - tachy Respiratory: Reports: cough Genitourinary: Reports: no symptoms Neurologic/Psychiatric: Reports: weakness Endocrine: Reports: no symptoms Hematologic/Lymphatic: Reports: no symptoms Allergies: Coded Allergies: No Known Allergies (Unverified , 07/30/18) Objective Last 24 Hour Vital Signs Date Time Temp Pulse Resp B/P (MAP) Pulse Ox O2 Delivery O2 Flow Rate FiO2 12/28/19 09:00 Room Air 12/28/19 08:12 197/80 12/28/19 08:12 65 197/80 12/28/19 08:11 197/80 12/28/19 04:00 131 12/28/19 04:00 98.2 100 20 168/96 (120) 96 12/28/19 00:00 97.5 100 20 159/90 (113) 96 12/27/19 21:29 169/103 12/27/19 21:00 Room Air 12/27/19 20:30 97.2 100 20 169/103 (125) 96 12/27/19 18:15 97.3 78 19 138/76 94 Room Air 12/27/19 16:11 90 20 Room Air 12/27/19 16:11 97.3 90 20 149/73 92 Room Air 12/27/19 16:06 97.3 90 20 149/73 (98) 92 Room Air Intake and Output 12/27/19 12/28/19 19:00 07:00 Intake Total 1000 ml 600 ml Balance 1000 ml 600 ml Intake Oral 150 ml IV Total 1000 ml 450 ml # Voids 1 # Bowel Movements 1 Laboratory Tests 12/27/19 17:14: Arterial Blood pH 7.360, Arterial Blood Partial Pressure CO2 35.8, Arterial Blood Partial Pressure O2 76.6, Arterial Blood HCO3 19.8L, Arterial Blood Oxygen Saturation 94.3L, Arterial Blood Base Excess -5.0L, Carlos Test Positive 12/27/19 18:15: White Blood Count 5.8, Red Blood Count 3.93L, Hemoglobin 11.1L, Hematocrit 34.5L , Mean Corpuscular Volume 88, Mean Corpuscular Hemoglobin 28.3, Mean Corpuscular Hemoglobin Concent 32.3, Red Cell Distribution Width 13.1, Platelet Count 119L, Mean Platelet Volume 8.7, Neutrophils (%) (Auto) 75.0, Lymphocytes (%) (Auto) 14.1L, Monocytes (%) (Auto) 10.5H, Eosinophils (%) (Auto) 0.1, Basophils (%) (Auto) 0.4, Prothrombin Time 11.4, Prothromb Time International Ratio 1.0, Activated Partial Thromboplast Time 30, D-Dimer 0.70H, Sodium Level 138, Potassium Level 4.2, Chloride Level 108H, Carbon Dioxide Level 19L, Anion Gap 11, Blood Urea Nitrogen 35H, Creatinine 1.7H, Estimat Glomerular Filtration Rate 39.0, Glucose Level 70L, Lactic Acid Level 0.60, Calcium Level 7.5L, Magnesium Level 1.7L, Ferritin 199, Total Bilirubin 0.4, Aspartate Amino Transf (AST/SGOT) 31, Alanine Aminotransferase (ALT/SGPT) 27, Alkaline Phosphatase 48, Lactate Dehydrogenase 175, Total Creatine Kinase 107, Troponin I 0.091H, C-Reactive Protein, Quantitative 9.4H, Pro-B-Type Natriuretic Peptide 372H, Total Protein 6.5, Albumin 2.6L, Globulin 3.9, Albumin/Globulin Ratio 0.7L 12/27/19 20:40: White Blood Count 5.9, Red Blood Count 4.30L, Hemoglobin 12.3L, Hematocrit 37.7L , Mean Corpuscular Volume 88, Mean Corpuscular Hemoglobin 28.5, Mean Corpuscular Hemoglobin Concent 32.6, Red Cell Distribution Width 13.1, Platelet Count 115L, Mean Platelet Volume 8.5, Neutrophils (%) (Auto) 74.3, Lymphocytes (%) (Auto) 13.6L, Monocytes (%) (Auto) 12.0H, Eosinophils (%) (Auto) 0.0, Basophils (%) (Auto) 0.1 12/27/19 21:44: POC Whole Blood Glucose 68L 12/27/19 22:45: POC Whole Blood Glucose 138H 12/28/19 06:30: White Blood Count 5.6, Red Blood Count 4.06L, Hemoglobin 11.6L, Hematocrit 34.6L , Mean Corpuscular Volume 85, Mean Corpuscular Hemoglobin 28.6, Mean Corpuscular Hemoglobin Concent 33.5, Red Cell Distribution Width 13.4, Platelet Count 118L, Mean Platelet Volume 8.3, Neutrophils (%) (Auto) 73.8, Lymphocytes (%) (Auto) 16.3L, Monocytes (%) (Auto) 9.4, Eosinophils (%) (Auto) 0.0, Basophils (%) (Auto) 0.5, Erythrocyte Sedimentation Rate 53H, Sodium Level 137, Potassium Level 4.1, Chloride Level 105, Carbon Dioxide Level 20L, Anion Gap 12, Blood Urea Nitrogen 30H, Creatinine 1.5H, Estimat Glomerular Filtration Rate 45.0, Glucose Level 72L, Hemoglobin A1c 6.9H, Calcium Level 7.9L, Total Bilirubin 0.4, Direct Bilirubin 0.2, Aspartate Amino Transf (AST/SGOT) 33, Alanine Aminotransferase (ALT/SGPT) 24, Alkaline Phosphatase 54, Troponin I 0.110H, C- Reactive Protein, Quantitative 11.0H, Total Protein 6.7, Albumin 2.6L, Globulin 4.1, Albumin/Globulin Ratio 0.6L Height (Feet): 5 Height (Inches): 5.00 Weight (Pounds): 180 General Appearance: no apparent distress, alert EENT: normal ENT inspection Neck: normal alignment Cardiovascular: normal rate, regular rhythm, tachycardia Respiratory/Chest: lungs clear Abdomen: non tender, soft Edema: no edema noted Arm (L), no edema noted Arm (R), no edema noted Leg (L), no edema noted Leg (R), no edema noted Pedal (L), no edema noted Pedal (R), no edema noted Generalized Neurologic: batch freezer II-XII grossly normal Assessment/Plan Problem List: (1) Dehydration ICD Codes: E86.0 - Dehydration SNOMED: 73041566 (2) Gait abnormality ICD Codes: R26.9 - Unspecified abnormalities of gait and mobility SNOMED: 79330395 (3) CVA, old, cognitive deficits ICD Codes: I69.319 - Unspecified symptoms and signs involving cognitive fu nctions following cerebral infarction SNOMED: 60106532, 076782227, 237784641, 862408682 (4) Troponin level elevated ICD Codes: R77.8 - Other specified abnormalities of plasma proteins SNOMED: 859878195, 098951210, 318161248 (5) CAD (coronary artery disease) ICD Codes: I25.10 - Atherosclerotic heart disease of [place] coronary artery without angina pectoris SNOMED: 67899139 (6) Diabetes ICD Codes: E11.9 - Type 2 diabetes mellitus without complications SNOMED: 90426802 (7) Pneumonia ICD Codes: J18.9 - Pneumonia, unspecified organism SNOMED: 937896309 (8) Chronic pain syndrome ICD Codes: G89.4 - Chronic painsyndrome SNOMED: 829574926 (9) Gastritis ICD Codes: K29.70 - Gastritis, unspecified, without bleeding SNOMED: 0045505 (10) COVID-19 ICD Codes: U07.1 - COVID-19 SNOMED: 991751501 Assessment/Plan: dexamethasone, remdesivir, hydrate, beta blockade, asa, isosorbide, PT Nishant Acevedo MD Dec 28, 2019 10:14
[2019-12-28] MEDS ORDERED: Albuterol ud Inhalation HHN PRN (10:15)
[2019-12-28] MEDS: Metoprolol Tartrate 100mg tab ORAL SCH ×3 (10:44→17:14)
[2019-12-28] MEDS: Nitroglycerin Patch 0.4mg TDERMAL SCH (10:44)
[2019-12-28] MEDS: Enoxaparin 60mg Inj SUBQ SCH (10:45)
[2019-12-28 12:00] VITALS: BP 143/62
--- NOTE | 2019-12-28 12:00 | NUR ---
NURSE NOTES: RN spoke to daughter Poornima over the phone regarding patient status and update. Daughter updated on physical therapy, appetite, and latest VS.
[2019-12-28 16:00] VITALS: BP 144/69
--- NOTE | 2019-12-28 16:32 | Infectious Diseases Prog Note ---
Assessment/Plan Assessment/Plan Full consult dictated: A) 1) COVID-19 infection with pna, ? CAP 2) hypoxia 3) pmh noted 4) NKDA P) 1) remdesivir and dexamethasone - day # 2 2) ceftriaxone and azithromycin - day # 2 3) monitor hypoxia 4) will f'/u 5) thank you Subjective Allergies: Coded Allergies: No Known Allergies (Unverified , 07/30/18) Objective Last 24 Hour Vital Signs Date Time Temp Pulse Resp B/P (MAP) Pulse Ox O2 Delivery O2 Flow Rate FiO2 12/28/19 12:20 125 143/62 12/28/19 12:00 112 12/28/19 12:00 97.5 105 18 143/62 (89) 94 12/28/19 10:44 197/80 12/28/19 10:44 65 197/80 12/28/19 09:00 Room Air 12/28/19 08:12 197/80 12/28/19 08:12 65 197/80 12/28/19 08:11 197/80 12/28/19 08:00 98.6 59 21 197/80 (119) 98 12/28/19 08:00 127 12/28/19 04:00 131 12/28/19 04:00 98.2 100 20 168/96 (120) 96 12/28/19 00:00 97.5 100 20 159/90 (113) 96 12/27/19 21:29 169/103 12/27/19 21:00 Room Air 12/27/19 20:30 97.2 100 20 169/103 (125) 96 12/27/19 18:15 97.3 78 19 138/76 94 Room Air Height (Feet): 5 Height (Inches): 5.00 Weight (Pounds): 180 Microbiology Date/Time Source Procedure Growth Status 12/27/19 16:35 Nasopharynx SARS-CoV-2 RdRp Gene Assay - Final Complete Laboratory Tests Test 12/27/19 17:14 12/27/19 18:15 12/27/19 20:40 12/27/19 21:44 Arterial Blood pH 7.360 (7.350-7.450) Arterial Blood Partial Pressure CO2 35.8 mmHg (35.0-45.0) Arterial Blood Partial Pressure O2 76.6 mmHg (75.0-100.0) Arterial Blood HCO3 19.8 mmol/L (22.0-26.0) L Arterial Blood Oxygen Saturation 94.3 % (95-100) L Arterial Blood Base Excess -5.0 (-2-2) L Carlos Test Positive White Blood Count 5.8 K/UL (4.8-10.8) 5.9 K/UL (4.8-10.8) Red Blood Count 3.93 M/UL (4.70-6.10) L 4.30 M/UL (4.70-6.10) L Hemoglobin 11.1 G/DL (14.2-18.0) L 12.3 G/DL (14.2-18.0) L Hematocrit 34.5 % (42.0-52.0) L 37.7 % (42.0-52.0) L Mean Corpuscular Volume 88 FL (80-99) 88 FL (80-99) Mean Corpuscular Hemoglobin 28.3 PG (27.0-31.0) 28.5 PG (27.0-31.0) Mean Corpuscular Hemoglobin Concent 32.3 G/DL (32.0-36.0) 32.6 G/DL (32.0-36.0) Red Cell Distribution Width 13.1 % (11.6-14.8) 13.1 % (11.6-14.8) Platelet Count 119 K/UL (150-450) L 115 K/UL (150-450) L Mean Platelet Volume 8.7 FL (6.5-10.1) 8.5 FL (6.5-10.1) Neutrophils (%) (Auto) 75.0 % (45.0-75.0) 74.3 % (45.0-75.0) Lymphocytes (%) (Auto) 14.1 % (20.0-45.0) L 13.6 % (20.0-45.0) L Monocytes (%) (Auto) 10.5 % (1.0-10.0) H 12.0 % (1.0-10.0) H Eosinophils (%) (Auto) 0.1 % (0.0-3.0) 0.0 % (0.0-3.0) Basophils (%) (Auto) 0.4 % (0.0-2.0) 0.1 % (0.0-2.0) Prothrombin Time 11.4 SEC (9.30-11.50) Prothromb Time International Ratio 1.0 (0.9-1.1) Activated Partial Thromboplast Time 30 SEC (23-33) D-Dimer 0.70 mg/L FEU (0.00-0.49) H Sodium Level 138 MMOL/L (136-145) Potassium Level 4.2 MMOL/L (3.5-5.1) Chloride Level 108 MMOL/L (98-107) H Carbon Dioxide Level 19 MMOL/L (21-32) L Anion Gap 11 mmol/L (5-15) Blood Urea Nitrogen 35 mg/dL (7-18) H Creatinine 1.7 MG/DL (0.55-1.30) H Estimat Glomerular Filtration Rate 39.0 mL/min (>60) Glucose Level 70 MG/DL (74-106) L Lactic Acid Level 0.60 mmol/L (0.4-2.0) Calcium Level 7.5 MG/DL (8.5-10.1) L Magnesium Level 1.7 MG/DL (1.8-2.4) L Ferritin 199 NG/ML (8-388) Total Bilirubin 0.4 MG/DL (0.2-1.0) Aspartate Amino Transf (AST/SGOT) 31 U/L (15-37) Alanine Aminotransferase (ALT/SGPT) 27 U/L (12-78) Alkaline Phosphatase 48 U/L (46-116) Lactate Dehydrogenase 175 U/L (81-234) Total Creatine Kinase 107 U/L (26-308) Troponin I 0.091 ng/mL (0.000-0.056) C-Reactive Protein, Quantitative 9.4 mg/dL (0.00-0.90) H Pro-B-Type Natriuretic Peptide 372 pg/mL (0-125) H Total Protein 6.5 G/DL (6.4-8.2) Albumin 2.6 G/DL (3.4-5.0) L Globulin 3.9 g/dL Albumin/Globulin Ratio 0.7 (1.0-2.7) L POC Whole Blood Glucose 68 MG/DL (74-106) L Test 12/27/19 22:45 12/28/19 06:30 12/28/19 12:19 POC Whole Blood Glucose 138 MG/DL (74-106) H 129 MG/DL (74-106) H White Blood Count 5.6 K/UL (4.8-10.8) Red Blood Count 4.06 M/UL (4.70-6.10) L Hemoglobin 11.6 G/DL (14.2-18.0) L Hematocrit 34.6 % (42.0-52.0) L Mean Corpuscular Volume 85 FL (80-99) Mean Corpuscular Hemoglobin 28.6 PG (27.0-31.0) Mean Corpuscular Hemoglobin Concent 33.5 G/DL (32.0-36.0) Red Cell Distribution Width 13.4 % (11.6-14.8) Platelet Count 118 K/UL (150-450) L Mean Platelet Volume 8.3 FL (6.5-10.1) Neutrophils (%) (Auto) 73.8 % (45.0-75.0) Lymphocytes (%) (Auto) 16.3 % (20.0-45.0) L Monocytes (%) (Auto) 9.4 % (1.0-10.0) Eosinophils (%) (Auto) 0.0 % (0.0-3.0) Basophils (%) (Auto) 0.5 % (0.0-2.0) Erythrocyte Sedimentation Rate 53 MM/HR (0-20) H Sodium Level 137 MMOL/L (136-145) Potassium Level 4.1 MMOL/L (3.5-5.1) Chloride Level 105 MMOL/L (98-107) Carbon Dioxide Level 20 MMOL/L (21-32) L Anion Gap 12 mmol/L (5-15) Blood Urea Nitrogen 30 mg/dL (7-18) H Creatinine 1.5 MG/DL (0.55-1.30) H Estimat Glomerular Filtration Rate 45.0 mL/min (>60) Glucose Level 72 MG/DL (74-106) L Hemoglobin A1c 6.9 % (4.3-6.0) H Calcium Level 7.9 MG/DL (8.5-10.1) L Total Bilirubin 0.4 MG/DL (0.2-1.0) Direct Bilirubin 0.2 MG/DL (0.0-0.3) Aspartate Amino Transf (AST/SGOT) 33 U/L (15-37) Alanine Aminotransferase (ALT/SGPT) 24 U/L (12-78) Alkaline Phosphatase 54 U/L (46-116) Troponin I 0.110 ng/mL (0.000-0.056) C-Reactive Protein, Quantitative 11.0 mg/dL (0.00-0.90) H Total Protein 6.7 G/DL (6.4-8.2) Albumin 2.6 G/DL (3.4-5.0) L Globulin 4.1 g/dL Albumin/Globulin Ratio 0.6 (1.0-2.7) L Current Medications Medications (Trade) Dose Ordered Sig/Carol Route PRN Reason Start Time Stop Time Status Last Admin Dose Admin Acetaminophen (Tylenol) 650 mg Q4H PRN ORAL FEVER 12/27/19 19:45 01/26/20 19:44 Acetaminophen (Tylenol) 650 mg Q4H PRN ORAL PAIN 1-6 12/27/19 19:45 01/26/20 19:44 Al Hydroxide/Mg Hydroxide (Mylanta) 30 ml Q4H PRN ORAL GI UPSET 12/27/19 20:00 01/26/20 19:59 Albuterol Sulfate (Proventil MDI) 2 puff Q4H PRN INH Shortness of Breath 12/28/19 10:00 03/27/20 09:59 Amlodipine Besylate (Norvasc) 10 mg DAILY ORAL 12/28/19 09:00 01/27/20 08:59 12/28/19 08:12 Ascorbic Acid (Vitamin C) 500 mg TWICE A DAY ORAL 12/28/19 18:00 01/27/20 17:59 Aspirin (ASA) 81 mg DAILY ORAL 12/27/19 19:45 02/10/20 19:44 12/28/19 08:12 Atorvastatin Calcium (Lipitor) 20 mg BEDTIME ORAL 12/27/19 21:00 03/26/20 20:59 12/27/19 21:25 Benazepril HCl (Lotensin) 40 mg DAILY ORAL 12/28/19 09:00 01/27/20 08:59 12/28/19 08:12 Ceftriaxone Sodium 1 gm/ Dextrose 55 ml @ 110 mls/hr Q24H IVPB 12/27/19 22:00 01/03/20 21:59 12/27/19 21:25 Dexamethasone Sodium Phosphate (Decadron 10mg/ ml Inj) 6 mg DAILY IV 12/28/19 09:00 01/06/20 09:01 12/28/19 08:11 Dextrose (Dextrose 50%) 25 ml Q30M PRN IV Hypoglycemia 12/27/19 20:00 03/26/20 19:59 Dextrose (Dextrose 50%) 50 ml Q30M PRN IV Hypoglycemia 12/27/19 20:00 03/26/20 19:59 Docusate Sodium (Colace) 250 mg BID ORAL 12/28/19 09:00 01/27/20 08:59 12/28/19 08:12 Donepezil HCl (Aricept) 10 mg QHS ORAL 12/27/19 21:00 01/26/20 20:59 12/27/19 21:25 Enoxaparin Sodium (Lovenox) 60 mg DAILY SUBQ 12/28/19 10:15 03/27/20 10:14 12/28/19 10:45 Gabapentin (Neurontin) 300 mg BID ORAL 12/27/19 20:00 01/26/20 19:59 12/28/19 08:11 Hydralazine HCl (Apresoline) 100 mg BID ORAL 12/27/19 20:00 03/26/20 19:59 12/28/19 08:11 Insulin Aspart (NovoLOG) BEFORE MEALS SUBQ 12/28/19 06:30 03/27/20 06:29 Metoprolol Tartrate (Lopressor) 100 mg TID ORAL 12/28/19 10:15 03/26/20 19:59 12/28/19 12:20 Nitroglycerin (Ntg) 1 patch Q24H TDERMAL 12/28/19 10:15 01/27/20 10:14 12/28/19 10:44 Ondansetron HCl (Zofran) 4 mg Q4H PRN IVP Nausea & Vomiting 12/27/19 19:45 01/26/20 19:44 Pantoprazole (Protonix) 40 mg EVERY 12 HOURS ORAL 12/27/19 21:00 01/26/20 20:59 12/28/19 08:12 Remdesivir 100 mg/ Sodium Chloride 250 ml @ 250 mls/hr Q24H IV 12/28/19 22:00 12/31/19 22:59 Sennosides (Senokot) 8.6 mg BIDPRN PRN ORAL Constipation 12/27/19 20:00 01/26/20 19:59 Sitagliptin Phosphate (Januvia) 50 mg ACBREAKFAST ORAL 12/28/19 06:30 01/27/20 06:29 12/28/19 06:19 Sodium Chloride 1,000 ml @ 50 mls/hr Q20H IV 12/27/19 19:45 01/26/20 19:44 12/28/19 10:48 Tamsulosin HCl (Flomax) 0.4 mg BEDTIME ORAL 12/27/19 21:00 01/26/20 20:59 12/27/19 21:24 Tramadol HCl (Ultram) 50 mg Q6H PRN ORAL PAIN 7-10 12/27/19 20:00 01/03/20 19:59 Vitamin D (Vitamin D) 2,000 intlu DAILY ORAL 12/28/19 09:00 01/27/20 08:59 12/28/19 08:11 Zinc Sulfate (Zinc Sulfate) 220 mg DAILY ORAL 12/29/19 09:00 03/28/20 08:59 Gracia Bryant MD Dec 28, 2019 16:32
[2019-12-28] MEDS: Ascorbic Acid 500mg tab ORAL SCH (17:13)
[2019-12-28] MEDS ORDERED: 1/2 NS 1000ml IV ONE (18:37)
[2019-12-28] MEDS ORDERED: Tubing IV Secondary IV ONE (18:37)
--- NOTE | 2019-12-28 18:57 | NUR ---
NURSE HAND-OFF REPORT: Important Events on Shift:[PT eval, lovenox, good appetite, 2D echo] Patient Status: [FULL CODE] Diet: [CCHO medium] Pending Orders: [] Pending Results/Labs:[] Pending MD notification:[] Latest Vital Signs: Temperature 97.7 , Pulse 81 , B/P 144 /69 , Respiratory Rate 17 , O2 SAT 98 , Room Air, O2 Flow Rate . Vital Sign Comment: [] EKG Rhythm: Sinus Rhythm Rhythm change?: N MD Notified?: - MD Response: Latest Bay Fall Score: 45 Fall Risk: High Risk Safety Measures: Call light Within Reach, Bed Alarm , Side Rails Side Rails x2, Bed position Low and Locked. Fall Precautions: Yellow Socks Door Sign Patient Fall Education Report given to [Usha RN].
--- NOTE | 2019-12-28 19:20 | NUR ---
NURSE NOTES: Report received from JELENA Mai. No SOB alert and oriented x3 Amharic and [place] speaking. He is on room air. Call light and bedside table with in reach. Bed at lowest position locked with side rails up. Isolation precautions practiced droplet, positive Covid 19 patient. bottle washer intact. Will continue with plan of care.
[2019-12-28 20:00] VITALS: BP 130/69
--- NOTE | 2019-12-28 20:00 | Consultation ---
DATE OF CONSULTATION: 12/28/2019 INFECTIOUS DISEASE CONSULTATION CONSULTING PHYSICIAN: Gracia Bryant MD. ATTENDING PHYSICIAN: Nishant Machado MD. REFERRING PHYSICIAN: Nishant Machado MD. REASON FOR CONSULTATION: COVID-19 infection and pneumonia, possible community-acquired pneumonia. CHIEF COMPLAINT: The patient's chief complaint coming into hospital is failure to thrive, pneumonia. HISTORY OF PRESENT ILLNESS: This is a very pleasant 79-year-old male who presents to [facility] with failure to thrive. The patient has history of multiple medical problems. The patient had increasing weakness and also had cough and shortness of breath. The patient's COVID testing by nasopharyngeal PCR was positive. The patient has pneumonia on chest x-ray. Infectious Disease consultation is requested for antibiotic management. He is currently on Rocephin and doxycycline. I started remdesivir and dexamethasone yesterday because of hypoxia in a patient with COVID infection. He also has multiple medical problems that puts him at risk for progression. Case communicated with Dr. Machado. Discussed with pharmacy yesterday. MAR was noted. Orders were noted. Notes and records were reviewed. The patient really cannot add to this history. Orders were noted. Chart notes were reviewed. The patient will be continued on Rocephin and doxycycline for now and also remdesivir and steroids for COVID infection and pneumonia. REVIEW OF SYSTEMS: CONSTITUTIONAL: As discussed, he came in with generalized weakness and failure to thrive. He has currently no fevers. He came in with dehydration and anorexia, poor eating. Otherwise on review of systems, there is no fever or chills. HEAD AND NECK: No head pain or neck pain. CARDIAC: No chest pain. GASTROINTESTINAL: No nausea, vomiting, abdominal pain, or diarrhea. GENITOURINARY: No dysuria or frequency. No Quinones. No CVA tenderness. PULMONARY: He has mild cough and congestion. No hemoptysis or secretions. SKIN: No rash. EXTREMITIES: No extremity pain. NEUROLOGIC: No seizures. Generalized fatigue and weakness. No joint pain. He has some shortness of breath. No seizure activity. PAST MEDICAL HISTORY: The patient has past medical history of diabetes, coronary artery disease, and CVA. He has history of anorexia, failure to thrive as discussed, has history of degenerative disc disease, decreasing gait, sciatica, gastritis and GI bleeds, frontal infarct secondary to CVA, hypertensive heart disease, and hypertension. ALLERGIES: He has no known drug allergies. No antibiotic allergies. SOCIAL HISTORY: Negative for smoking, alcohol, or drug abuse. FAMILY HISTORY: Noncontributory. Negative for tuberculosis or cancer. MEDICATIONS: Upon reviewing the MAR, he is on following medications; he is on zinc sulfate and remdesivir. He is on dexamethasone, enoxaparin, nitroglycerin, Rocephin, doxycycline, albuterol, benazepril, amlodipine, docusate, insulin, sitagliptin, atorvastatin, pantoprazole, hydralazine, and gabapentin. Outside medications noted and reconciliated. PHYSICAL EXAMINATION: VITAL SIGNS: He is in COVID isolation. Temperature 97.5, pulse rate , respiratory rate 18, blood pressure 143/62. Saturation 94% on room air. GENERAL: Alert, responsive, in no distress. HEAD AND NECK: Oral exam, no thrush. Eyes exam, no icterus. Normocephalic. Neck is supple. No JVD. HEART: No gallop or murmur. Tachycardic. LUNGS: Few bilateral rhonchi and rales. No respiratory distress. ABDOMEN: Soft. Positive bowel sounds. Nontender. SKIN: No rash or dermatitis. MUSCULOSKELETAL: No joint pain or septic arthritis. Lower extremity exam without cellulitis. PERIPHERAL VASCULAR: No gangrene or cyanosis. GENITOURINARY: He has a Quinones. No CVA tenderness. LINE SITES: Without phlebitis. NEUROLOGIC: Alert, responsive. Generalized weakness. LABORATORY DATA: White count 5.6, hemoglobin 11.6. Sed rate 53. Creatinine 1.5. LFTs noted. Troponin 0.110. C-reactive protein 11. COVID SARS testing - nasopharyngeal lab testing was positive. IMAGING: Chest x-ray with bilateral patchy opacities or airspace opacities consistent with pulmonary vascular congestion versus infection and pneumonia. ASSESSMENT AND PLAN: 1. The patient has COVID-19 virus infection with pneumonia, rule out community-acquired pneumonia. The patient did have cough and congestion. I agree with treatment for community-acquired pneumonia with Rocephin and doxycycline. Avoid proarrhythmic drug due to history of coronary artery disease. Continue Rocephin and doxycycline for community-acquired pneumonia, day #2. Also with regards to the COVID-19 infection with pneumonia, the patient did have come in with hypoxia. His saturation on admission was 92% on room air. We will continue remdesivir, day #2 of antiviral therapy and also dexamethasone day #2 continued use for COVID-19 infection. Continue COVID isolation. Proper PPE is worn. And also check followup chest x-ray. Continue supportive care at this time. Case communicated with Dr. Machado and discussed with pharmacy about the COVID treatment and antibiotics. Continue treatment for COVID-19 infection and pneumonia including community-acquired pneumonia with dexamethasone, remdesivir, Rocephin, and doxycycline. Again all day #2. 2. COVID-19 isolation. Continue supportive care in isolation, probably PPEs worn. 3. Diabetes. 4. Coronary heart disease. 5. Hypertension. 6. Blood sugar and blood pressure treatment per primary care team. 7. CVA. 8. Elevated creatinine. 9. Questionable hyperlipidemia. 10. Hypertensive heart disease. 11. Coronary artery disease. 12. Gastritis and GI bleed. 13. Dehydration, IV fluids. 14. Weakness. 15. Hypoxia. 16. Sciatica. 17. Degenerative disc disease. 18. No known drug allergies. 19. Social history is negative. 20. Family history is noncontributory. 21. MAR is noted. 22. Communicated case with Dr. Machado. 23. Continue treatment per primary consultants. Gracia Bryant M.D. DR: MALCOLM JOB#: [id number] CC:
[2019-12-28] MEDS: Doxycycline Monohydrate 100mg ORAL SCH (21:24)
[2019-12-28] MEDS: Tamsulosin 0.4mg cap ORAL SCH (21:24)
[2019-12-28] MEDS: Donepezil 10mg tab ORAL SCH (21:24)
[2019-12-28] MEDS: Maintenance Dose:Remdesivir 100mg/NS 230ml x 4 Doses IV SCH ×2 (21:24)
[2019-12-28] MEDS: Atorvastatin 20mg tab ORAL SCH (21:24)
[2019-12-28] MEDS: cefTRIAXone 1gm/D5W 55ml IVPB SCH ×2 (22:00)
[2019-12-29] VITALS: BP 132/70
[2019-12-29 04:00] VITALS: BP 114/51
[2019-12-29 05:57] LABS: BASOPHILS % (AUTO) 0.3 % (0.0-2.0); HEMATOCRIT 34.2 % (42.0-52.0); HEMOGLOBIN 11.3 G/DL (14.2-18.0); LYMPHOCYTES % (AUTO) 19.4 % (20.0-45.0); MEAN CORPUSCULAR VOLUME 89 FL (80-99); MONOCYTES % (AUTO) 15.2 % (1.0-10.0); NEUTROPHILS % (AUTO) 65.1 % (45.0-75.0); PLATELET COUNT 130 K/UL (150-450); RED BLOOD COUNT 3.86 M/UL (4.70-6.10); RED CELL DISTRIBUTION WIDTH 12.9 % (11.6-14.8); WHITE BLOOD COUNT 4.1 K/UL (4.8-10.8)
[2019-12-29 06:14] LABS: ALBUMIN 2.4 G/DL (3.4-5.0); ALBUMIN/GLOBULIN RATIO 0.6 (1.0-2.7); BILIRUBIN,DIRECT 0.1 MG/DL (0.0-0.3); BILIRUBIN,TOTAL 0.3 MG/DL (0.2-1.0); CALCIUM 7.9 MG/DL (8.5-10.1); CREATININE 1.7 MG/DL (0.55-1.30); POTASSIUM 4.6 MMOL/L (3.5-5.1)
[2019-12-29] MEDS: NovoLOG Insulin Flexpen SUBQ SCH ×3 (06:30→16:30)
[2019-12-29] MEDS: sitaGLIPtin 50mg tab ORAL SCH (06:49)
--- NOTE | 2019-12-29 07:26 | NUR ---
NURSE NOTES: received report from JELENA fleming. Pt is sleeping in bed w/ no s/s or complaints of distress at this time. pt IV on L hand 18g running 1/2 NS at 50cc, asymptomatic and intact. RFA 20g SL, asymptomatic and intact. Skin intact. R Chest Nitro patch noted. Bed low and locked, call light in reach and bed alarm on. Contact and droplet isolation.
--- NOTE | 2019-12-29 07:27 | NUR ---
NURSE HAND-OFF REPORT: Important Events on Shift:[] Patient Status: [Stable alert oriented x3] Diet: CCHO med[] Pending Orders: [] Pending Results/Labs:[] Pending MD notification:[] Latest Vital Signs: Temperature 97.7 , Pulse 67 , B/P 114 /51 , Respiratory Rate 20 , O2 SAT 94 , Room Air, O2 Flow Rate . Vital Sign Comment: [] EKG Rhythm: Sinus Rhythm Rhythm change?: N MD Notified?: - MD Response: Latest Bay Fall Score: 45 Fall Risk: High Risk Safety Measures: Call light Within Reach, Bed Alarm , Side Rails Side Rails x2, Bed position Low and Locked. Fall Precautions: Yellow Socks Door Sign Patient Fall Education Report given to [Laly BOWLES].
[2019-12-29 08:00] VITALS: BP 125/60
[2019-12-29] MEDS: Ascorbic Acid 500mg tab ORAL SCH ×2 (08:16→17:05)
[2019-12-29] MEDS: Doxycycline Monohydrate 100mg ORAL SCH ×2 (08:16→21:36)
[2019-12-29] MEDS: Docusate 250mg cap ORAL SCH ×2 (08:17→17:04)
[2019-12-29] MEDS: Metoprolol Tartrate 100mg tab ORAL SCH ×3 (08:17→17:05)
[2019-12-29] MEDS: Vitamin D 1000 IU Tab ORAL SCH (08:17)
[2019-12-29] MEDS: Aspirin Baby 81mg ORAL SCH (08:18)
[2019-12-29] MEDS: Zinc Sulfate 220mg ORAL SCH (08:18)
[2019-12-29] MEDS: dexAMETHasone 10mg/ml Inj IV SCH (08:20)
[2019-12-29] MEDS: Enoxaparin 60mg Inj SUBQ SCH (08:22)
[2019-12-29] MEDS: HydrALAZINE 50mg tab ORAL SCH ×2 (08:22→17:05)
--- NOTE | 2019-12-29 09:06 | NUR ---
CASE MANAGEMENT:REVIEW 12/29/19 SI: COVID PNEUMONIA 97.6 62 21 125/60 98% ON RA WBC-4.1 H/H-11.3/34.2 PLT-130 BUN+41 CR+1.7 TROPONIN(+) 0.114 IS: IV REMDESIVIR Q24 (#3/5) IV DECADRON Q24 IV ROCEPHIN Q24 DOXYCYCLINE PO Q12 ZINC PO QD VIT C PO QD LOPRESSOR PO TID LOTENSIN PO QD NORVASC PO QD : TELEMETRY STATUS DCP: FROM HOME
--- NOTE | 2019-12-29 10:38 | Pulmonology Progress Note ---
Subjective Allergies: Coded Allergies: No Known Allergies (Unverified , 07/30/18) Subjective working with PT appeared stronger this am remains afebrile, no leukocytoids in isolation pulse ox stable on RA now troponin with minimal elevation, denies chest pain, SOB creat remains 1.7 Objective Last 24 Hour Vital Signs Date Time Temp Pulse Resp B/P (MAP) Pulse Ox O2 Delivery O2 Flow Rate FiO2 12/29/19 09:00 Room Air 12/29/19 08:22 125/60 12/29/19 08:18 125/60 12/29/19 08:18 62 125/60 12/29/19 08:17 62 125/60 12/29/19 08:00 97.6 62 21 125/60 (81) 98 12/29/19 08:00 56 12/29/19 04:00 66 12/29/19 04:00 97.7 67 20 114/51 (72) 94 12/29/19 00:00 69 12/29/19 00:00 97.3 70 22 132/70 (90) 96 12/28/19 21:00 Room Air 12/28/19 20:00 78 12/28/19 20:00 97.7 79 24 130/69 (89) 94 12/28/19 17:14 81 144/69 12/28/19 17:13 144/69 12/28/19 16:00 97.7 107 17 144/69 (94) 98 12/28/19 16:00 81 12/28/19 12:20 125 143/62 12/28/19 12:00 112 12/28/19 12:00 97.5 105 18 143/62 (89) 94 12/28/19 10:44 197/80 12/28/19 10:44 65 197/80 Intake and Output 12/28/19 12/29/19 19:00 07:00 Intake Total 690 ml 200 ml Output Total 1200 ml Balance -510 ml 200 ml Intake Oral 140 ml 200 ml IV Total 550 ml Output Urine Total 1200 ml # Voids 3 2 # Bowel Movements 1 Objective General Appearance: elderly male in NAD Lines, tubes and drains: peripheral HEENT: normocephalic, atraumatic, anicteric, mucous membranes moist Neck: supple Respiratory/Chest: no respiratory distress, no accessory muscle use Cardiovascular/Chest: normal rate, regular rhythm, tele with SR Abdomen: normal bowel sounds, non tender, soft Extremities: no calf tenderness, normal capillary refill, no edema Neurologic: alert, responsive, moves all extremities Musculoskeletal: atrophy - BLE Microbiology Date/Time Source Procedure Growth Status 12/27/19 16:35 Nasopharynx SARS-CoV-2 RdRp Gene Assay - Final Complete Laboratory Tests 12/28/19 12:19: POC Whole Blood Glucose 129H 12/28/19 16:55: POC Whole Blood Glucose [Pending] 12/29/19 04:00: White Blood Count 4.1L, Red Blood Count 3.86L, Hemoglobin 11.3L, Hematocrit 34.2L, Mean Corpuscular Volume 89, Mean Corpuscular Hemoglobin 29.4, Mean Corpuscular Hemoglobin Concent 33.2, Red Cell Distribution Width 12.9, Platelet Count 130L, Mean Platelet Volume 9.2, Neutrophils (%) (Auto) 65.1, Lymphocytes (%) (Auto) 19.4L, Monocytes (%) (Auto) 15.2H, Eosinophils (%) (Auto) 0.0, Basophils (%) (Auto) 0.3, Sodium Level 139, Potassium Level 4.6, Chloride Level 108H, Carbon Dioxide Level 20L, Anion Gap 11, Blood Urea Nitrogen 41H, Creatinine 1.7H, Estimat Glomerular Filtration Rate 39.0, Glucose Level 119H, Calcium Level 7.9L, Total Bilirubin 0.3, Direct Bilirubin 0.1, Aspartate Amino Transf (AST/SGOT) 46H, Alanine Aminotransferase (ALT/SGPT) 35, Alkaline Phosphatase 51, Troponin I 0.114H, Total Protein 6.2L, Albumin 2.4L, Globulin 3.8, Albumin/Globulin Ratio 0.6L, Interleukin 6 (IL-6) [Pending] 12/29/19 06:02: POC Whole Blood Glucose 103 12/29/19 09:55: POC Whole Blood Glucose 117H Current Medications Medications (Trade) Dose Ordered Sig/Carol Route PRN Reason Start Time Stop Time Status Last Admin Dose Admin Acetaminophen (Tylenol) 650 mg Q4H PRN ORAL FEVER 12/27/19 19:45 01/26/20 19:44 Acetaminophen (Tylenol) 650 mg Q4H PRN ORAL PAIN 1-6 12/27/19 19:45 01/26/20 19:44 Al Hydroxide/Mg Hydroxide (Mylanta) 30 ml Q4H PRN ORAL GI UPSET 12/27/19 20:00 01/26/20 19:59 Albuterol Sulfate (Proventil MDI) 2 puff Q4H PRN INH Shortness of Breath 12/28/19 10:00 03/27/20 09:59 12/29/19 00:33 Amlodipine Besylate (Norvasc) 10 mg DAILY ORAL 12/28/19 09:00 01/27/20 08:59 12/29/19 08:18 Ascorbic Acid (Vitamin C) 500 mg TWICE A DAY ORAL 12/28/19 18:00 01/27/20 17:59 12/29/19 08:16 Aspirin (ASA) 81 mg DAILY ORAL 12/27/19 19:45 02/10/20 19:44 12/29/19 08:18 Atorvastatin Calcium (Lipitor) 20 mg BEDTIME ORAL 12/27/19 21:00 03/26/20 20:59 12/28/19 21:24 Benazepril HCl (Lotensin) 40 mg DAILY ORAL 12/28/19 09:00 01/27/20 08:59 12/29/19 08:18 Ceftriaxone Sodium 1 gm/ Dextrose 55 ml @ 110 mls/hr Q24H IVPB 12/27/19 22:00 01/03/20 21:59 12/28/19 22:00 Dexamethasone Sodium Phosphate (Decadron 10mg/ ml Inj) 6 mg DAILY IV 12/28/19 09:00 01/06/20 09:01 12/29/19 08:20 Dextrose (Dextrose 50%) 25 ml Q30M PRN IV Hypoglycemia 12/27/19 20:00 03/26/20 19:59 Dextrose (Dextrose 50%) 50 ml Q30M PRN IV Hypoglycemia 12/27/19 20:00 03/26/20 19:59 Docusate Sodium (Colace) 250 mg BID ORAL 12/28/19 09:00 01/27/20 08:59 12/29/19 08:17 Donepezil HCl (Aricept) 10 mg QHS ORAL 12/27/19 21:00 01/26/20 20:59 12/28/19 21:24 Doxycycline Monohydrate (Doxycycline Monohydrate) 100 mg EVERY 12 HOURS ORAL 12/28/19 21:00 01/04/20 20:59 12/29/19 08:16 Enoxaparin Sodium (Lovenox) 60 mg DAILY SUBQ 12/28/19 10:15 03/27/20 10:14 12/29/19 08:22 Gabapentin (Neurontin) 300 mg BID ORAL 12/27/19 20:00 01/26/20 19:59 12/29/19 08:17 Hydralazine HCl (Apresoline) 100 mg BID ORAL 12/27/19 20:00 03/26/20 19:59 12/28/19 17:13 Insulin Aspart (NovoLOG) BEFORE MEALS SUBQ 12/28/19 06:30 03/27/20 06:29 12/28/19 17:12 Metoprolol Tartrate (Lopressor) 100 mg TID ORAL 12/28/19 10:15 03/26/20 19:59 12/29/19 08:17 Nitroglycerin (Ntg) 1 patch Q24H TDERMAL 12/28/19 10:15 01/27/20 10:14 12/28/19 10:44 Ondansetron HCl (Zofran) 4 mg Q4H PRN IVP Nausea & Vomiting 12/27/19 19:45 01/26/20 19:44 Pantoprazole (Protonix) 40 mg EVERY 12 HOURS ORAL 12/27/19 21:00 01/26/20 20:59 12/29/19 08:17 Remdesivir 100 mg/ Sodium Chloride 250 ml @ 250 mls/hr Q24H IV 12/28/19 22:00 12/31/19 22:59 12/28/19 21:24 Sennosides (Senokot) 8.6 mg BIDPRN PRN ORAL Constipation 12/27/19 20:00 01/26/20 19:59 Sitagliptin Phosphate (Januvia) 50 mg ACBREAKFAST ORAL 12/28/19 06:30 01/27/20 06:29 12/29/19 06:49 Sodium Chloride 1,000 ml @ 50 mls/hr Q20H IV 12/27/19 19:45 01/26/20 19:44 12/28/19 10:48 Tamsulosin HCl (Flomax) 0.4 mg BEDTIME ORAL 12/27/19 21:00 01/26/20 20:59 12/28/19 21:24 Tramadol HCl (Ultram) 50 mg Q6H PRN ORAL PAIN 7-10 12/27/19 20:00 01/03/20 19:59 Vitamin D (Vitamin D) 2,000 intlu DAILY ORAL 12/28/19 09:00 01/27/20 08:59 12/29/19 08:17 Zinc Sulfate (Zinc Sulfate) 220 mg DAILY ORAL 12/29/19 09:00 03/28/20 08:59 12/29/19 08:18 Assessment/Plan Assessment/Plan ASSESSMENT Covid 19 PNA Mild hypoxemia Prior smoker Elevated troponin LACIE probably due to mild dehydration possibly on CKD ? HTN CAD DM, Hx of CVA BPH PLAN OF CARE tele isolation titrate to keep sat > 92%, Proventil MDI prn steroids, remdesivvir abx a/c with Heparin fup with CXR fup with inflammatory markers zinc, vit C troponin minimally elevated, no c/o CP ECHO with pEF 60-65% ? troponin leak 2/2 renal failure -> consider cardio eval- per primary discretion a/PLT with ASA and BB , nitrites, statin IV hydration home meds resumed as per PMD BP an BS management BP management with multiple anti/HTN regimen: BB, CCB, MARTA, Hydralazine BS management with Januvia and SSI PT eval and Rx, fall precautions supportive care case discussed and evaluated by supervising physician Leonora Rich NP Dec 29, 2019 10:38
[2019-12-29] MEDS: Nitroglycerin Patch 0.4mg TDERMAL SCH (10:57)
[2019-12-29 12:00] VITALS: BP 147/67
[2019-12-29 12:15] LABS: APPEARANCE,URINE CLEAR; BILIRUBIN, URINE NEGATIVE (NEGATIVE); GLUCOSE, URINE (UA) NEGATIVE (NEGATIVE); KETONES,URINE NEGATIVE (NEGATIVE); LEUKOCYTE ESTERASE ,URINE NEGATIVE (NEGATIVE); NITRITE,URINE NEGATIVE (NEGATIVE); PH,URINE 5 (4.5-8.0); PROTEIN,URINE 1+ (NEGATIVE); UROBILINOGEN,URINE NORMAL MG/DL (0.0-1.0)
[2019-12-29 12:19] LABS: COLOR,URINE YELLOW
[2019-12-29] MEDS ORDERED: GLIPIZIDE5 MG ORAL (14:13)
[2019-12-29] MEDS ORDERED: HYDRALAZINE HCL50 MG ORAL (14:14)
[2019-12-29] MEDS ORDERED: METFORMIN HCL500 M1 ORAL (14:15)
[2019-12-29 16:00] VITALS: BP 133/77
--- NOTE | 2019-12-29 17:21 | General Progress Note ---
Subjective Constitutional: Reports: weakness HEENT: Reports: no symptoms Cardiovascular: Reports: no symptoms Respiratory: Reports: cough Gastrointestinal/Abdominal: Reports: poor appetite Genitourinary: Reports: no symptoms Neurologic/Psychiatric: Reports: pre-existing deficit Endocrine: Reports: no symptoms Hematologic/Lymphatic: Reports: no symptoms Allergies: Coded Allergies: No Known Allergies (Unverified , 07/30/18) Subjective weak no distress, difficulty walking Objective Last 24 Hour Vital Signs Date Time Temp Pulse Resp B/P (MAP) Pulse Ox O2 Delivery O2 Flow Rate FiO2 12/29/19 17:05 70 133/77 12/29/19 17:05 133/77 12/29/19 12:48 72 130/62 12/29/19 12:00 68 12/29/19 12:00 97.6 66 20 147/67 (93) 98 12/29/19 10:57 125/60 12/29/19 09:00 Room Air 12/29/19 08:22 125/60 12/29/19 08:18 125/60 12/29/19 08:18 62 125/60 12/29/19 08:17 62 125/60 12/29/19 08:00 97.6 62 21 125/60 (81) 98 12/29/19 08:00 56 12/29/19 04:00 66 12/29/19 04:00 97.7 67 20 114/51 (72) 94 12/29/19 00:00 69 12/29/19 00:00 97.3 70 22 132/70 (90) 96 12/28/19 21:00 Room Air 12/28/19 20:00 78 12/28/19 20:00 97.7 79 24 130/69 (89) 94 Intake and Output 12/28/19 12/29/19 19:00 07:00 Intake Total 690 ml 200 ml Output Total 1200 ml Balance -510 ml 200 ml Intake Oral 140 ml 200 ml IV Total 550 ml Output Urine Total 1200 ml # Voids 3 2 # Bowel Movements 1 Laboratory Tests 12/29/19 04:00: White Blood Count 4.1L, Red Blood Count 3.86L, Hemoglobin 11.3L, Hematocrit 34.2L, Mean Corpuscular Volume 89, Mean Corpuscular Hemoglobin 29.4, Mean Corpuscular Hemoglobin Concent 33.2, Red Cell Distribution Width 12.9, Platelet Count 130L, Mean Platelet Volume 9.2, Neutrophils (%) (Auto) 65.1, Lymphocytes (%) (Auto) 19.4L, Monocytes (%) (Auto) 15.2H, Eosinophils (%) (Auto) 0.0, B asophils (%) (Auto) 0.3, Sodium Level 139, Potassium Level 4.6, Chloride Level 108H, Carbon Dioxide Level 20L, Anion Gap 11, Blood Urea Nitrogen 41H, Creatinine 1.7H, Estimat Glomerular Filtration Rate 39.0, Glucose Level 119H, Calcium Level 7.9L, Total Bilirubin 0.3, Direct Bilirubin 0.1, Aspartate Amino Transf (AST/SGOT) 46H, Alanine Aminotransferase (ALT/SGPT) 35, Alkaline Phosphatase 51, Troponin I 0.114H, Total Protein 6.2L, Albumin 2.4L, Globulin 3.8, Albumin/Globulin Ratio 0.6L, Interleukin 6 (IL-6) [Pending] 12/29/19 06:02: POC Whole Blood Glucose 103 12/29/19 09:55: POC Whole Blood Glucose 117H 12/29/19 10:59: POC Whole Blood Glucose 142H 12/29/19 11:47: Urine Color Yellow, Urine Appearance Clear, Urine pH 5, Urine Specific [place] 1.015, Urine Protein 1+H, Urine Glucose (UA) Negative, Urine Ketones Negative, Urine Blood Negative, Urine Nitrite Negative, Urine Bilirubin Negative, Urine Urobilinogen Normal, Urine Leukocyte Esterase Negative, Urine RBC 0, Urine WBC 0, Urine Squamous Epithelial Cells Occasional, Urine Bacteria Occasional Height (Feet): 5 Height (Inches): 5.00 Weight (Pounds): 180 General Appearance: no apparent distress, alert EENT: PERRL/EOMI Neck: normal alignment Cardiovascular: normal rate, regular rhythm Respiratory/Chest: lungs clear Abdomen: non tender, soft Edema: no edema noted Arm (L), no edema noted Arm (R), no edema noted Leg (L), no edema noted Leg (R), no edema noted Pedal (L), no edema noted Pedal (R), no edema noted Generalized Neurologic: 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 II-XII grossly normal Assessment/Plan Problem List: (1) Dehydration ICD Codes: E86.0 - Dehydration SNOMED: 01814996 (2) Gait abnormality ICD Codes: R26.9 - Unspecified abnormalities of gait and mobility SNOMED: 77853486 (3) CVA, old, cognitive deficits ICD Codes: I69.319 - Unspecified symptoms and signs involving cognitive functions following cerebral infarction SNOMED: 53011544, 524231755, 883052248, 359380689 (4) Troponin level elevated ICD Codes: R77.8 - Other specified abnormalities of plasma proteins SNOMED: 907946539, 160329724, 725394627 (5) CAD (coronary artery disease) ICD Codes: I25.10 - Atherosclerotic heart disease of [place] coronary artery without angina pectoris SNOMED: 48852425 (6) Diabetes ICD Codes: E11.9 - Type 2 diabetes mellitus without complications SNOMED: 86437637 (7) Pneumonia ICD Codes: J18.9 - Pneumonia, unspecified organism SNOMED: 024870774 (8) Chronic pain syndrome ICD Codes: G89.4 - Chronic painsyndrome SNOMED: 758935278 (9) Gastritis ICD Codes: K29.70 - Gastritis, unspecified, without bleeding SNOMED: 0291890 (10) COVID-19 ICD Codes: U07.1 - COVID-19 SNOMED: 347008159 Assessment/Plan: dexamethasone, remdesivir, hydrate, beta blockade, asa, isosorbide, PT Nishant Acevedo MD Dec 29, 2019 17:21
[2019-12-29] MEDS ORDERED: Azithromycin 500 MG in NS 275 ML IV SCH (18:00)
--- NOTE | 2019-12-29 19:52 | NUR ---
NURSE HAND-OFF REPORT: Important Events on Shift: troponin 0.114, UA done, Pt SB-- lang aware Patient Status: fc, stable Diet: ccho med, whole pills ok Pending Orders: Pending Results/Labs: Pending MD notification: Latest Vital Signs: Temperature 97.6 , Pulse 70 , B/P 133 /77 , Respiratory Rate 20 , O2 SAT 97 , Room Air, O2 Flow Rate . Vital Sign Comment: EKG Rhythm: Sinus Bradycardia Rhythm change?: Y MD Notified?: N - MD Response: Latest [place] Fall Score: 45 Fall Risk: High Risk Safety Measures: Call light Within Reach, Bed Alarm , Side Rails Side Rails x2, Bed position Low and Locked. Fall Precautions: Yellow Socks Door Sign Patient Fall Education Report given to JELENA Richardson.
[2019-12-29 20:00] VITALS: BP 118/59
--- NOTE | 2019-12-29 20:02 | NUR ---
NURSE NOTES: Report received from JELENA Ruffin. Patient awake alert x3 and makes needs known. No SOB or acute distress noted. No pain reported at this time. IV site is left hand 20G running TKO; patent flushed. No erythema or bleeding noted. Call light with in reach. Bed side table with in reach. Bed at lowest position locked with side rails up. Patient is a fall risk do to weakness. Patient is on room air. On COVID 19 isolation precautions. Will continue with plan of care.
[2019-12-29] MEDS: cefTRIAXone 1gm/D5W 55ml IVPB SCH ×2 (21:35)
[2019-12-29] MEDS: Tamsulosin 0.4mg cap ORAL SCH (21:36)
[2019-12-29] MEDS: Atorvastatin 20mg tab ORAL SCH (21:36)
[2019-12-29] MEDS: Donepezil 10mg tab ORAL SCH (21:36)
[2019-12-29] MEDS: Maintenance Dose:Remdesivir 100mg/NS 230ml x 4 Doses IV SCH ×2 (22:21)
[2019-12-30] VITALS: BP 123/57
[2019-12-30 04:00] VITALS: BP 126/60
[2019-12-30 05:29] LABS: BASOPHILS % (AUTO) 0.5 % (0.0-2.0); EOSINOPHILS % (AUTO) 0.1 % (0.0-3.0); HEMATOCRIT 36.5 % (42.0-52.0); HEMOGLOBIN 11.6 G/DL (14.2-18.0); LYMPHOCYTES % (AUTO) 26.2 % (20.0-45.0); MEAN CORPUSCULAR VOLUME 89 FL (80-99); MONOCYTES % (AUTO) 15.9 % (1.0-10.0); NEUTROPHILS % (AUTO) 57.3 % (45.0-75.0); PLATELET COUNT 149 K/UL (150-450); WHITE BLOOD COUNT 4.6 K/UL (4.8-10.8)
[2019-12-30] MEDS: sitaGLIPtin 50mg tab ORAL SCH (05:37)
[2019-12-30 06:04] LABS: ALANINE AMINOTRANSFERASE 86 U/L (12-78); ALBUMIN 2.3 G/DL (3.4-5.0); ALBUMIN/GLOBULIN RATIO 0.6 (1.0-2.7); ALKALINE PHOSPHATASE 45 U/L (46-116); ANION GAP 12 mmol/L (5-15); ASPARTATE AMINO TRANSFERASE 87 U/L (15-37); BILIRUBIN,DIRECT < 0.1 MG/DL (0.0-0.3); BILIRUBIN,TOTAL 0.3 MG/DL (0.2-1.0); BLOOD UREA NITROGEN 43 mg/dL (7-18); CARBON DIOXIDE 17 MMOL/L (21-32); CHLORIDE 110 MMOL/L (98-107); CREATININE 1.5 MG/DL (0.55-1.30); POTASSIUM 4.6 MMOL/L (3.5-5.1); SODIUM 139 MMOL/L (136-145)
[2019-12-30] MEDS: NovoLOG Insulin Flexpen SUBQ SCH ×3 (06:30→16:30)
--- NOTE | 2019-12-30 07:50 | NUR ---
NURSE NOTES: pt in bed awake and alert x 3, pt. is verbal. Bed is locked and in lowest position call Light within reach. Pt was repositioned. Pt on cardiac rehab nurse no signs of cardiac or respiratory distress. Pt is eating at this time. will continue to monitor pt.
--- NOTE | 2019-12-30 07:56 | NUR ---
NURSE HAND-OFF REPORT: Important Events on Shift: Patient Status: No acute distress Diet: CCHO Med Pending Orders: Pending Results/Labs: Pending MD notification: Latest Vital Signs: Temperature 97.4 , Pulse 65 , B/P 126 /60 , Respiratory Rate 19 , O2 SAT 97 , Room Air, O2 Flow Rate . Vital Sign Comment: EKG Rhythm: Sinus Rhythm Rhythm change?: N MD Notified?: N - MD Response: Latest [place] Fall Score: 45 Fall Risk: High Risk Safety Measures: Call light Within Reach, Bed Alarm , Side Rails Side Rails x2, Bed position Low and Locked. Fall Precautions: Yellow Socks Door Sign Patient Fall Education Report given to Negra BOWLES.
[2019-12-30 08:30] VITALS: BP 139/73
--- NOTE | 2019-12-30 08:39 | Pulmonology Progress Note ---
Subjective Allergies: Coded Allergies: No Known Allergies (Unverified , 07/30/18) Subjective remains afebrile, no leukocytosis eating breakfast on RA, pulse ox stable working with PT in isolation troponin with minimal elevation, denies chest pain, SOB creat 1.5 Objective Last 24 Hour Vital Signs Date Time Temp Pulse Resp B/P (MAP) Pulse Ox O2 Delivery O2 Flow Rate FiO2 12/30/19 04:00 97.4 62 19 126/60 (82) 97 12/30/19 04:00 65 12/30/19 00:00 64 12/30/19 00:00 97.0 62 20 123/57 (79) 93 12/29/19 21:00 Room Air 12/29/19 20:00 97.1 62 19 118/59 (78) 97 12/29/19 20:00 72 12/29/19 17:05 70 133/77 12/29/19 17:05 133/77 12/29/19 16:00 97.6 70 20 133/77 (95) 97 12/29/19 16:00 56 12/29/19 12:48 72 130/62 12/29/19 12:00 68 12/29/19 12:00 97.6 66 20 147/67 (93) 98 12/29/19 10:57 125/60 12/29/19 09:00 Room Air Intake and Output 12/29/19 12/30/19 19:00 07:00 Intake Total 750 ml 120 ml Output Total 1050 ml 1300 ml Balance -300 ml -1180 ml Intake Oral 120 ml Other 750 ml Output Urine Total 1050 ml 1300 ml # Voids 2 2 Objective General Appearance: elderly male in NAD Lines, tubes and drains: peripheral HEENT: normocephalic, atraumatic, anicteric, mucous membranes moist Neck: supple Respiratory/Chest: no respiratory distress, no accessory muscle use Cardiovascular/Chest: normal rate, regular rhythm, tele with SR Abdomen: normal bowel sounds, non tender, soft Extremities: no calf tenderness, normal capillary refill, no edema Neurologic: alert, responsive, moves all extremities Musculoskeletal: atrophy - BLE Microbiology Date/Time Source Procedure Growth Status 12/27/19 16:35 Nasopharynx SARS-CoV-2 RdRp Gene Assay - Final Complete Laboratory Tests 12/29/19 09:55: POC Whole Blood Glucose 117H 12/29/19 10:59: POC Whole Blood Glucose 142H 12/29/19 11:47: Urine Color Yellow, Urine Appearance Clear, Urine pH 5, Urine Specific [place] 1.015, Urine Protein 1+H, Urine Glucose (UA) Negative, Urine Ketones Negative, Urine Blood Negative, Urine Nitrite Negative, Urine Bilirubin Negative, Urine Urobilinogen Normal, Urine Leukocyte Esterase Negative, Urine RBC 0, Urine WBC 0, Urine Squamous Epithelial Cells Occasional, Urine Bacteria Occasional 12/29/19 17:34: POC Whole Blood Glucose 178H 12/30/19 03:51: White Blood Count 4.6L, Red Blood Count 4.10L, Hemoglobin 11.6L, Hematocrit 36.5L, Mean Corpuscular Volume 89, Mean Corpuscular Hemoglobin 28.2, Mean Corpuscular Hemoglobin Concent 31.7L, Red Cell Distribution Width 13.0, Platelet Count 149L, Mean Platelet Volume 8.7, Neutrophils (%) (Auto) 57.3, Lymphocytes (%) (Auto) 26.2, Monocytes (%) (Auto) 15.9H, Eosinophils (%) (Auto) 0.1, Basophils (%) (Auto) 0.5, Sodium Level 139, Potassium Level 4.6, Chloride Level 110H, Carbon Dioxide Level 17L, Anion Gap 12, Blood Urea Nitrogen 43H, Creatinine 1.5H, Estimat Glomerular Filtration Rate 45.0, Glucose Level 86, Calcium Level 8.0L, Total Bilirubin 0.3, Direct Bilirubin < 0.1, Aspartate Amino Transf (AST/SGOT) 87H, Alanine Aminotransferase (ALT/SGPT) 86H, Alkaline Phosphatase 45L, C-Reactive Protein, Quantitative 4.7H, Total Protein 6.0L, Albumin 2.3L, Globulin 3.7, Albumin/Globulin Ratio 0.6L 12/30/19 05:42: POC Whole Blood Glucose 90 Current Medications Medications (Trade) Dose Ordered Sig/Carol Route PRN Reason Start Time Stop Time Status Last Admin Dose Admin Acetaminophen (Tylenol) 650 mg Q4H PRN ORAL FEVER 12/27/19 19:45 01/26/20 19:44 Acetaminophen (Tylenol) 650 mg Q4H PRN ORAL PAIN 1-6 12/27/19 19:45 01/26/20 19:44 Al Hydroxide/Mg Hydroxide (Mylanta) 30 ml Q4H PRN ORAL GI UPSET 12/27/19 20:00 01/26/20 19:59 Albuterol Sulfate (Proventil MDI) 2 puff Q4H PRN INH Shortness of Breath 12/28/19 10:00 03/27/20 09:59 12/29/19 00:33 Amlodipine Besylate (Norvasc) 10 mg DAILY ORAL 12/28/19 09:00 01/27/20 08:59 12/29/19 08:18 Ascorbic Acid (Vitamin C) 500 mg TWICE A DAY ORAL 12/28/19 18:00 01/27/20 17:59 12/29/19 17:05 Aspirin (ASA) 81 mg DAILY ORAL 12/27/19 19:45 02/10/20 19:44 12/29/19 08:18 Atorvastatin Calcium (Lipitor) 20 mg BEDTIME ORAL 12/27/19 21:00 03/26/20 20:59 12/29/19 21:36 Benazepril HCl (Lotensin) 40 mg DAILY ORAL 12/28/19 09:00 01/27/20 08:59 12/29/19 08:18 Ceftriaxone Sodium 1 gm/ Dextrose 55 ml @ 110 mls/hr Q24H IVPB 12/27/19 22:00 01/03/20 21:59 12/29/19 21:35 Dexamethasone Sodium Phosphate (Decadron 10mg/ ml Inj) 6 mg DAILY IV 12/28/19 09:00 01/06/20 09:01 12/29/19 08:20 Dextrose (Dextrose 50%) 25 ml Q30M PRN IV Hypoglycemia 12/27/19 20:00 03/26/20 19:59 Dextrose (Dextrose 50%) 50 ml Q30M PRN IV Hypoglycemia 12/27/19 20:00 03/26/20 19:59 Docusate Sodium (Colace) 250 mg BID ORAL 12/28/19 09:00 01/27/20 08:59 12/29/19 17:04 Donepezil HCl (Aricept) 10 mg QHS ORAL 12/27/19 21:00 01/26/20 20:59 12/29/19 21:36 Doxycycline Monohydrate (Doxycycline Monohydrate) 100 mg EVERY 12 HOURS ORAL 12/28/19 21:00 01/04/20 20:59 12/29/19 21:36 Enoxaparin Sodium (Lovenox) 60 mg DAILY SUBQ 12/28/19 10:15 03/27/20 10:14 12/29/19 08:22 Gabapentin (Neurontin) 300 mg BID ORAL 12/27/19 20:00 01/26/20 19:59 12/29/19 17:05 Hydralazine HCl (Apresoline) 100 mg BID ORAL 12/27/19 20:00 03/26/20 19:59 12/28/19 17:13 Insulin Aspart (NovoLOG) BEFORE MEALS SUBQ 12/28/19 06:30 03/27/20 06:29 12/29/19 16:30 Metoprolol Tartrate (Lopressor) 100 mg TID ORAL 12/28/19 10:15 03/26/20 19:59 12/29/19 17:05 Nitroglycerin (Ntg) 1 patch Q24H TDERMAL 12/28/19 10:15 01/27/20 10:14 12/29/19 10:57 Ondansetron HCl (Zofran) 4 mg Q4H PRN IVP Nausea & Vomiting 12/27/19 19:45 01/26/20 19:44 Pantoprazole (Protonix) 40 mg EVERY 12 HOURS ORAL 12/27/19 21:00 01/26/20 20:59 12/29/19 21:36 Remdesivir 100 mg/ Sodium Chloride 250 ml @ 250 mls/hr Q24H IV 12/28/19 22:00 12/31/19 22:59 12/29/19 22:21 Sennosides (Senokot) 8.6 mg BIDPRN PRN ORAL Constipation 12/27/19 20:00 01/26/20 19:59 Sitagliptin Phosphate (Januvia) 50 mg ACBREAKFAST ORAL 12/28/19 06:30 01/27/20 06:29 12/30/19 05:37 Sodium Chloride 1,000 ml @ 50 mls/hr Q20H IV 12/27/19 19:45 01/26/20 19:44 12/30/19 00:45 Tamsulosin HCl (Flomax) 0.4 mg BEDTIME ORAL 12/27/19 21:00 01/26/20 20:59 12/29/19 21:36 Tramadol HCl (Ultram) 50 mg Q6H PRN ORAL PAIN 7-10 12/27/19 20:00 01/03/20 19:59 Vitamin D (Vitamin D) 2,000 intlu DAILY ORAL 12/28/19 09:00 01/27/20 08:59 12/29/19 08:17 Zinc Sulfate (Zinc Sulfate) 220 mg DAILY ORAL 12/29/19 09:00 03/28/20 08:59 12/29/19 08:18 Assessment/Plan Assessment/Plan ASSESSMENT Covid 19 PNA Mild hypoxemia Prior smoker Elevated troponin LACIE probably due to mild dehydration possibly on CKD ? HTN CAD DM, Hx of CVA BPH PLAN OF CARE tele isolation titrate to keep sat > 92%, Proventil MDI prn steroids, remdesivvir Day#3 abx a/c with Heparin fup with CXR fup with inflammatory markers, CRP down to 4.7 zinc, vit C troponin minimally elevated, no c/o CP ECHO with pEF 60-65% ? troponin leak 2/2 renal failure -> consider cardio eval- per primary discretion a/PLT with ASA and BB , nitrites, statin IV hydration home meds resumed as per PMD BP an BS management BP management with multiple anti/HTN regimen: BB, CCB, MARTA, Hydralazine BS management with Januvia and SSI PT eval and Rx, fall precautions supportive care case discussed and evaluated by supervising physician Leonora Rich NP Dec 30, 2019 08:38
[2019-12-30] MEDS: Enoxaparin 60mg Inj SUBQ SCH (09:32)
[2019-12-30] MEDS: Aspirin Baby 81mg ORAL SCH (09:32)
[2019-12-30] MEDS: Doxycycline Monohydrate 100mg ORAL SCH ×2 (09:34→20:58)
[2019-12-30] MEDS: Ascorbic Acid 500mg tab ORAL SCH ×2 (09:34→18:14)
[2019-12-30] MEDS: Nitroglycerin Patch 0.4mg TDERMAL SCH (09:34)
[2019-12-30] MEDS: Vitamin D 1000 IU Tab ORAL SCH (09:34)
[2019-12-30] MEDS: HydrALAZINE 50mg tab ORAL SCH ×2 (09:36→18:13)
[2019-12-30] MEDS: dexAMETHasone 10mg/ml Inj IV SCH (09:37)
[2019-12-30] MEDS: Metoprolol Tartrate 100mg tab ORAL SCH ×3 (09:39→18:14)
[2019-12-30] MEDS: Docusate 250mg cap ORAL SCH ×2 (09:39→18:14)
[2019-12-30] MEDS: Zinc Sulfate 220mg ORAL SCH (09:40)
[2019-12-30 12:00] VITALS: BP 128/68
[2019-12-30 16:00] VITALS: BP 131/67
--- NOTE | 2019-12-30 17:33 | Infectious Diseases Prog Note ---
Assessment/Plan Assessment/Plan ASSESSMENT AND PLAN: 1. covid-19 infection with pna, ? CAP, hypoxia - dexamethasone and remdesivir -day # 4 - ceftriaxone and azithromycin - day # 4 - clinically stable, saturations stable - monitor labs and chest x-ray 2. COVID-19 isolation. Continue supportive care and isolation, proper PPEs worn. 3. Diabetes. 4. Coronary heart disease. 5. Hypertension. 6. Blood sugar and blood pressure treatment per primary care team. 7. CVA. 8. Elevated creatinine. 9. Questionable hyperlipidemia. 10. Hypertensive heart disease. 11. Coronary artery disease. 12. Gastritis and GI bleed. 13. Dehydration, IV fluids. 14. Weakness. 15. Hypoxia. 16. Sciatica. 17. Degenerative disc disease. 18. No known drug allergies. 19. Social history is negative. 20. Family history is noncontributory. 21. MAR is noted. 22. Communicated case with Dr. Machado. 23. Continue treatment per primary consultants. Subjective Constitutional: Denies: fever HEENT: Reports: congestion - less Respiratory: Reports: shortness of breath - less Cardiovascular: Denies: chest pain Gastrointestinal/Abdominal: Denies: nausea, vomiting, diarrhea Genitourinary: Reports: other - no alicia ; Denies: dysuria, hematuria, frequency Neurologic: Denies: headache Psychiatric: Denies: depression Skin: Denies: rash Hematologic: Denies: bleeding Musculoskeletal: Denies: pain Allergies: Coded Allergies: No Known Allergies (Unverified , 07/30/18) Objective Last 24 Hour Vital Signs Date Time Temp Pulse Resp B/P (MAP) Pulse Ox O2 Delivery O2 Flow Rate FiO2 12/30/19 13:00 74 128/68 12/30/19 09:40 139/73 12/30/19 09:40 75 139/73 12/30/19 09:39 75 139/73 12/30/19 09:36 139/73 12/30/19 09:34 139/73 12/30/19 08:34 Room Air 12/30/19 08:30 97.6 68 20 139/73 (95) 95 12/30/19 08:00 66 12/30/19 04:00 97.4 62 19 126/60 (82) 97 12/30/19 04:00 65 12/30/19 00:00 64 12/30/19 00:00 97.0 62 20 123/57 (79) 93 12/29/19 21:00 Room Air 12/29/19 20:00 97.1 62 19 118/59 (78) 97 12/29/19 20:00 72 Height (Feet): 5 Height (Inches): 5.00 Weight (Pounds): 180 General Appearance: no acute distress HEENT: normocephalic, atraumatic, anicteric, mucous membranes moist Respiratory/Chest: lungs clear, normal breath sounds, no respiratory distress, no accessory muscle use Cardiovascular: normal rate, regular rhythm, no gallop/murmur, no JVD Abdomen: normal bowel sounds, soft, non tender, no organomegaly, non distended Genitourinary: other - no alicia Extremities: no cyanosis Skin: no rash 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 COMPARISON: Chest x-ray dated 05/28/2017 FINDINGS: Lungs: Scattered airspace opacities within the central and upper lungs which may represent pulmonary vascular congestion versus an infectious process. Pleural space: Unremarkable. Heart: Unremarkable. Mediastinum: Unremarkable. Bones/joints: Evidence of prior median sternotomy. IMPRESSION: Scattered airspace opacities within the central and upper lungs which may represent pulmonary vascular congestion versus an infectious process. Microbiology Date/Time Source Procedure Growth Status 12/27/19 16:35 Nasopharynx SARS-CoV-2 RdRp Gene Assay - Final Complete sars/covid-19 testing + Laboratory Tests Test 12/29/19 17:34 12/30/19 03:51 12/30/19 05:42 12/30/19 12:03 POC Whole Blood Glucose 178 MG/DL (74-106) H 90 MG/DL (74-106) Pending White Blood Count 4.6 K/UL (4.8-10.8) L Red Blood Count 4.10 M/UL (4.70-6.10) L Hemoglobin 11.6 G/DL (14.2-18.0) L Hematocrit 36.5 % (42.0-52.0) L Mean Corpuscular Volume 89 FL (80-99) Mean Corpuscular Hemoglobin 28.2 PG (27.0-31.0) Mean Corpuscular Hemoglobin Concent 31.7 G/DL (32.0-36.0) L Red Cell Distribution Width 13.0 % (11.6-14.8) Platelet Count 149 K/UL (150-450) L Mean Platelet Volume 8.7 FL (6.5-10.1) Neutrophils (%) (Auto) 57.3 % (45.0-75.0) Lymphocytes (%) (Auto) 26.2 % (20.0-45.0) Monocytes (%) (Auto) 15.9 % (1.0-10.0) H Eosinophils (%) (Auto) 0.1 % (0.0-3.0) Basophils (%) (Auto) 0.5 % (0.0-2.0) Sodium Level 139 MMOL/L (136-145) Potassium Level 4.6 MMOL/L (3.5-5.1) Chloride Level 110 MMOL/L (98-107) H Carbon Dioxide Level 17 MMOL/L (21-32) L Anion Gap 12 mmol/L (5-15) Blood Urea Nitrogen 43 mg/dL (7-18) H Creatinine 1.5 MG/DL (0.55-1.30) H Estimat Glomerular Filtration Rate 45.0 mL/min (>60) Glucose Level 86 MG/DL (74-106) Calcium Level 8.0 MG/DL (8.5-10.1) L Total Bilirubin 0.3 MG/DL (0.2-1.0) Direct Bilirubin < 0.1 MG/DL (0.0-0.3) Aspartate Amino Transf (AST/SGOT) 87 U/L (15-37) H Alanine Aminotransferase (ALT/SGPT) 86 U/L (12-78) H Alkaline Phosphatase 45 U/L (46-116) L C-Reactive Protein, Quantitative 4.7 mg/dL (0.00-0.90) H Total Protein 6.0 G/DL (6.4-8.2) L Albumin 2.3 G/DL (3.4-5.0) L Globulin 3.7 g/dL Albumin/Globulin Ratio 0.6 (1.0-2.7) L Interleukin 6 (IL-6) Pending Test 12/30/19 17:11 POC Whole Blood Glucose 223 MG/DL (74-106) H Current Medications Medications (Trade) Dose Ordered Sig/Carol Route PRN Reason Start Time Stop Time Status Last Admin Dose Admin Acetaminophen (Tylenol) 650 mg Q4H PRN ORAL FEVER 12/27/19 19:45 01/26/20 19:44 Acetaminophen (Tylenol) 650 mg Q4H PRN ORAL PAIN 1-6 12/27/19 19:45 01/26/20 19:44 Al Hydroxide/Mg Hydroxide (Mylanta) 30 ml Q4H PRN ORAL GI UPSET 12/27/19 20:00 01/26/20 19:59 Albuterol Sulfate (Proventil MDI) 2 puff Q4H PRN INH Shortness of Breath 12/28/19 10:00 03/27/20 09:59 12/29/19 00:33 Amlodipine Besylate (Norvasc) 10 mg DAILY ORAL 12/28/19 09:00 01/27/20 08:59 12/30/19 09:40 Ascorbic Acid (Vitamin C) 500 mg TWICE A DAY ORAL 12/28/19 18:00 01/27/20 17:59 12/30/19 09:34 Aspirin (ASA) 81 mg DAILY ORAL 12/27/19 19:45 02/10/20 19:44 12/30/19 09:32 Atorvastatin Calcium (Lipitor) 20 mg BEDTIME ORAL 12/27/19 21:00 03/26/20 20:59 12/29/19 21:36 Benazepril HCl (Lotensin) 40 mg DAILY ORAL 12/28/19 09:00 01/27/20 08:59 12/30/19 09:40 Ceftriaxone Sodium 1 gm/ Dextrose 55 ml @ 110 mls/hr Q24H IVPB 12/27/19 22:00 01/03/20 21:59 12/29/19 21:35 Dexamethasone Sodium Phosphate (Decadron 10mg/ ml Inj) 6 mg DAILY IV 12/28/19 09:00 01/06/20 09:01 12/30/19 09:37 Dextrose (Dextrose 50%) 25 ml Q30M PRN IV Hypoglycemia 12/27/19 20:00 03/26/20 19:59 Dextrose (Dextrose 50%) 50 ml Q30M PRN IV Hypoglycemia 12/27/19 20:00 03/26/20 19:59 Docusate Sodium (Colace) 250 mg BID ORAL 12/28/19 09:00 01/27/20 08:59 12/30/19 09:39 Donepezil HCl (Aricept) 10 mg QHS ORAL 12/27/19 21:00 01/26/20 20:59 12/29/19 21:36 Doxycycline Monohydrate (Doxycycline Monohydrate) 100 mg EVERY 12 HOURS ORAL 12/28/19 21:00 01/04/20 20:59 12/30/19 09:34 Enoxaparin Sodium (Lovenox) 60 mg DAILY SUBQ 12/28/19 10:15 03/27/20 10:14 12/30/19 09:32 Gabapentin (Neurontin) 300 mg BID ORAL 12/27/19 20:00 01/26/20 19:59 12/30/19 09:39 Hydralazine HCl (Apresoline) 100 mg BID ORAL 12/27/19 20:00 03/26/20 19:59 12/30/19 09:36 Insulin Aspart (NovoLOG) BEFORE MEALS SUBQ 12/28/19 06:30 03/27/20 06:29 12/29/19 16:30 Metoprolol Tartrate (Lopressor) 100 mg TID ORAL 12/28/19 10:15 03/26/20 19:59 12/30/19 13:00 Nitroglycerin (Ntg) 1 patch Q24H TDERMAL 12/28/19 10:15 01/27/20 10:14 12/30/19 09:34 Ondansetron HCl (Zofran) 4 mg Q4H PRN IVP Nausea & Vomiting 12/27/19 19:45 01/26/20 19:44 Pantoprazole (Protonix) 40 mg EVERY 12 HOURS ORAL 12/27/19 21:00 01/26/20 20:59 12/30/19 09:38 Remdesivir 100 mg/ Sodium Chloride 250 ml @ 250 mls/hr Q24H IV 12/28/19 22:00 12/31/19 22:59 12/29/19 22:21 Sennosides (Senokot) 8.6 mg BIDPRN PRN ORAL Constipation 12/27/19 20:00 01/26/20 19:59 Sitagliptin Phosphate (Januvia) 50 mg ACBREAKFAST ORAL 12/28/19 06:30 01/27/20 06:29 12/30/19 05:37 Sodium Chloride 1,000 ml @ 50 mls/hr Q20H IV 12/27/19 19:45 01/26/20 19:44 12/30/19 00:45 Tamsulosin HCl (Flomax) 0.4 mg BEDTIME ORAL 12/27/19 21:00 01/26/20 20:59 12/29/19 21:36 Tramadol HCl (Ultram) 50 mg Q6H PRN ORAL PAIN 7-10 12/27/19 20:00 01/03/20 19:59 Vitamin D (Vitamin D) 2,000 intlu DAILY ORAL 12/28/19 09:00 01/27/20 08:59 12/30/19 09:34 Zinc Sulfate (Zinc Sulfate) 220 mg DAILY ORAL 12/29/19 09:00 03/28/20 08:59 12/30/19 09:40 Gracia Bryant MD Dec 30, 2019 17:33
--- NOTE | 2019-12-30 19:30 | NUR ---
NURSE HAND-OFF REPORT: Important Events on Shift: pt able to stand and use commode with assist. Per doctor Carter pt needs to sit in chair for breakfast lunch and dinner. Patient Status: full Diet: CCHO med Pending Orders: Pending Results/Labs: Pending MD notification: Latest Vital Signs: Temperature 96.7 , Pulse 74 , B/P 136 /66 , Respiratory Rate 20 , O2 SAT 98 , Room Air, O2 Flow Rate . Vital Sign Comment: EKG Rhythm: Sinus Rhythm Rhythm change?: N MD Notified?: N - MD Response: Latest Bay Fall Score: 45 Fall Risk: High Risk Safety Measures: Call light Within Reach, Bed Alarm , Side Rails Side Rails x2, Bed position Low and Locked. Fall Precautions: y Yellow Socks y Door Sign y Patient Fall Education y Report given to Amy/RN .
--- NOTE | 2019-12-30 19:46 | NUR ---
NURSE NOTES: Patient received from Radha BOWLES. Patient in stable condition lying in bed comfortably. Alert and oriented x3 sinhala speaking. Saturating well on room air. IV site patent and intact on Right FA 20G running 1/2 NS @ 50cc/hr. No c/o pain and no s/s of distress. Bed in lowest position and locked. Call light and bedside table within reach. Will continue plan of care. Addendum: 12/30/19 at 1949 by Amy Bartlett RN Patient received from [facility]
[2019-12-30 20:00] VITALS: BP 134/69
--- NOTE | 2019-12-30 20:24 | General Progress Note ---
Subjective Constitutional: Reports: weakness HEENT: Reports: no symptoms Cardiovascular: Reports: no symptoms Respiratory: Reports: cough Gastrointestinal/Abdominal: Reports: poor appetite Genitourinary: Reports: no symptoms Neurologic/Psychiatric: Reports: weakness Endocrine: Reports: no symptoms Hematologic/Lymphatic: Reports: no symptoms Allergies: Coded Allergies: No Known Allergies (Unverified , 07/30/18) Subjective weak no distress, difficulty walking Objective Last 24 Hour Vital Signs Date Time Temp Pulse Resp B/P (MAP) Pulse Ox O2 Delivery O2 Flow Rate FiO2 12/30/19 18:14 74 136/66 12/30/19 18:13 136/66 12/30/19 16:00 74 12/30/19 16:00 96.7 61 20 131/67 (88) 98 12/30/19 13:00 74 128/68 12/30/19 12:00 72 12/30/19 12:00 97.6 68 20 128/68 (88) 95 12/30/19 09:40 139/73 12/30/19 09:40 75 139/73 12/30/19 09:39 75 139/73 12/30/19 09:36 139/73 12/30/19 09:34 139/73 12/30/19 08:34 Room Air 12/30/19 08:30 97.6 68 20 139/73 (95) 95 12/30/19 08:00 66 12/30/19 04:00 97.4 62 19 126/60 (82) 97 12/30/19 04:00 65 12/30/19 00:00 64 12/30/19 00:00 97.0 62 20 123/57 (79) 93 12/29/19 21:00 Room Air Intake and Output 12/29/19 12/30/19 19:00 07:00 Intake Total 750 ml 120 ml Output Total 1050 ml 1300 ml Balance -300 ml -1180 ml Intake Oral 120 ml Other 750 ml Output Urine Total 1050 ml 1300 ml # Voids 2 2 Laboratory Tests 12/30/19 03:51: White Blood Count 4.6L, Red Blood Count 4.10L, Hemoglobin 11.6L, Hematocrit 36.5L, Mean Corpuscular Volume 89, Mean Corpuscular Hemoglobin 28.2, Mean Corpuscular Hemoglobin Concent 31.7L, Red Cell Distribution Width 13.0, Platelet Count 149L, Mean Platelet Volume 8.7, Neutrophils (%) (Auto) 57.3, Lymphocytes (%) (Auto) 26.2, Monocytes (%) (Auto) 15.9H, Eosinophils (%) (Auto) 0.1, Basophils (%) (Auto) 0.5, Sodium Level 139, Potassium Level 4.6, Chloride Level 110H, Carbon Dioxide Level 17L, Anion Gap 12, Blood Urea Nitrogen 43H, Creatinine 1.5H, Estimat Glomerular Filtration Rate 45.0, Glucose Level 86, Calcium Level 8.0L, Total Bilirubin 0.3, Direct Bilirubin < 0.1, Aspartate Amino Transf (AST/SGOT) 87H, Alanine Aminotransferase (ALT/SGPT) 86H, Alkaline Ph osphatase 45L, C-Reactive Protein, Quantitative 4.7H, Total Protein 6.0L, Albumin 2.3L, Globulin 3.7, Albumin/Globulin Ratio 0.6L, Interleukin 6 (IL-6) [Pending] 12/30/19 05:42: POC Whole Blood Glucose 90 12/30/19 12:03: POC Whole Blood Glucose [Pending] 12/30/19 17:11: POC Whole Blood Glucose 223H Height (Feet): 5 Height (Inches): 5.00 Weight (Pounds): 180 General Appearance: no apparent distress, alert EENT: normal ENT inspection Neck: normal alignment Cardiovascular: regular rhythm Respiratory/Chest: lungs clear Abdomen: non tender Edema: no edema noted Arm (L), no edema noted Arm (R), no edema noted Leg (L), no edema noted Leg (R), no edema noted Pedal (L), no edema noted Pedal (R), no edema noted Generalized 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: 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 grossly normal Assessment/Plan Problem List: (1) Dehydration ICD Codes: E86.0 - Dehydration SNOMED: 67357375 (2) Gait abnormality ICD Codes: R26.9 - Unspecified abnormalities of gait and mobility SNOMED: 71714293 (3) CVA, old, cognitive deficits ICD Codes: I69.319 - Unspecified symptoms and signs involving cognitive functions following cerebral infarction SNOMED: 29392927, 312248063, 439119048, 737395582 (4) Troponin level elevated ICD Codes: R77.8 - Other specified abnormalities of plasma proteins SNOMED: 979312613, 009498444, 623785556 (5) CAD (coronary artery disease) ICD Codes: I25.10 - Atherosclerotic heart disease of [place] coronary artery without angina pectoris SNOMED: 56128532 (6) Diabetes ICD Codes: E11.9 - Type 2 diabetes mellitus without complications SNOMED: 25441446 (7) Pneumonia ICD Codes: J18.9 - Pneumonia, unspecified organism SNOMED: 353402502 (8) Chronic pain syndrome ICD Codes: G89.4 - Chronic painsyndrome SNOMED: 180789897 (9) Gastritis ICD Codes: K29.70 - Gastritis, unspecified, without bleeding SNOMED: 1031396 (10) COVID-19 ICD Codes: U07.1 - COVID-19 SNOMED: 559932678 Assessment/Plan: dexamethasone, remdesivir, hydrate, beta blockade, asa, isosorbide, PT Nishant Acevedo MD Dec 30, 2019 20:24
[2019-12-30] MEDS: Atorvastatin 20mg tab ORAL SCH (20:58)
[2019-12-30] MEDS: Donepezil 10mg tab ORAL SCH (20:58)
[2019-12-30] MEDS: Tamsulosin 0.4mg cap ORAL SCH (20:58)
[2019-12-30] MEDS: cefTRIAXone 1gm/D5W 55ml IVPB SCH ×2 (21:00)
[2019-12-30] MEDS: Maintenance Dose:Remdesivir 100mg/NS 230ml x 4 Doses IV SCH ×2 (22:01)
--- NOTE | 2019-12-30 22:30 | Consultation ---
DATE OF CONSULTATION: 12/28/2019 ADDENDUM As I mentioned, vital signs on the day I saw him were as follows: Temperature was 97.5, pulse rate 100, respiratory rate 20, blood pressure 159/90, saturation 96% on room air, and later that day, pulse rate is 125, blood pressure 143/62, temperature 97.5, respiratory rate 18, saturation 94% again on room air, blood pressure 140/62, pulse rate , temperature 97.5. Those are vital signs when I saw the patient initially on 12/28/2019. In addition, I want to make an addendum to the consult for the assessment and plan. I want to make a correction. It should read as COVID-19 isolation. Continue supportive care and isolation and continue proper PPEs. I wore proper PPEs when I saw the patient, all personal protective equipment. Again, the patient was on azithromycin, remdesivir, dexamethasone, and Rocephin for possible concurrent pneumonia, and COVID-19 infection with pneumonia. Gracia Bryant M.D. DR: FABIAN JOB#: [id number] CC:
[2019-12-30] MEDS: traMADol 50mg tab ORAL PRN (22:35)
[2019-12-31] VITALS: BP 142/71
[2019-12-31 04:00] VITALS: BP 101/57
[2019-12-31 04:20] LABS: BASOPHILS % (AUTO) 0.3 % (0.0-2.0); EOSINOPHILS % (AUTO) 0.1 % (0.0-3.0); HEMATOCRIT 36.9 % (42.0-52.0); LYMPHOCYTES % (AUTO) 23.6 % (20.0-45.0); MEAN CORPUSCULAR VOLUME 87 FL (80-99); MONOCYTES % (AUTO) 15.4 % (1.0-10.0); NEUTROPHILS % (AUTO) 60.6 % (45.0-75.0); PLATELET COUNT 165 K/UL (150-450); RED BLOOD COUNT 4.24 M/UL (4.70-6.10); RED CELL DISTRIBUTION WIDTH 13.1 % (11.6-14.8); WHITE BLOOD COUNT 5.4 K/UL (4.8-10.8)
[2019-12-31 04:35] LABS: ALBUMIN 2.4 G/DL (3.4-5.0); ALBUMIN/GLOBULIN RATIO 0.6 (1.0-2.7); BILIRUBIN,DIRECT 0.1 MG/DL (0.0-0.3); BILIRUBIN,TOTAL 0.3 MG/DL (0.2-1.0); CREATININE 1.6 MG/DL (0.55-1.30); POTASSIUM 4.2 MMOL/L (3.5-5.1)
[2019-12-31] MEDS: sitaGLIPtin 50mg tab ORAL SCH (05:53)
[2019-12-31] MEDS: NovoLOG Insulin Flexpen SUBQ SCH ×3 (06:12→16:46)
--- NOTE | 2019-12-31 07:17 | NUR ---
NURSE HAND-OFF REPORT: Important Events on Shift:[none] Patient Status: [Stable] Diet: [[employer] MEDIUM] Pending Orders: [] Pending Results/Labs:[] Pending MD notification:[] Latest Vital Signs: Temperature 97.8 , Pulse 53 , B/P 101 /57 , Respiratory Rate 18 , O2 SAT 94 , Room Air, O2 Flow Rate . Vital Sign Comment: [] EKG Rhythm: Sinus Bradycardia Rhythm change?: N MD Notified?: N - MD Response: Latest Bay Fall Score: 45 Fall Risk: High Risk Safety Measures: Call light Within Reach, Bed Alarm , Side Rails Side Rails x2, Bed position Low and Locked. Fall Precautions: Yellow Socks Door Sign Patient Fall Education Report given to [Gladysi RN].
--- NOTE | 2019-12-31 07:21 | NUR ---
NURSE NOTES: Pt received from Joshua BOWLES. Pt in be sleeping, bed low and locked call light within reach. no distress noted. 1/2 ns running at 50cc in right FA.
[2019-12-31 07:59] VITALS: BP 124/94
[2019-12-31] MEDS: Enoxaparin 60mg Inj SUBQ SCH (08:09)
[2019-12-31] MEDS: Ascorbic Acid 500mg tab ORAL SCH ×2 (08:10→18:15)
[2019-12-31] MEDS: Docusate 250mg cap ORAL SCH ×2 (08:10→18:14)
[2019-12-31] MEDS: Doxycycline Monohydrate 100mg ORAL SCH ×2 (08:10→20:58)
[2019-12-31] MEDS: Zinc Sulfate 220mg ORAL SCH (08:11)
[2019-12-31] MEDS: Aspirin Baby 81mg ORAL SCH (08:11)
[2019-12-31] MEDS: Vitamin D 1000 IU Tab ORAL SCH (08:12)
[2019-12-31] MEDS: Metoprolol Tartrate 100mg tab ORAL SCH ×3 (08:13→18:24)
[2019-12-31] MEDS: HydrALAZINE 50mg tab ORAL SCH ×2 (08:13→18:23)
[2019-12-31] MEDS: dexAMETHasone 10mg/ml Inj IV SCH (08:14)
--- NOTE | 2019-12-31 08:26 | Pulmonology Progress Note ---
Subjective Constitutional: Denies: fever Gastrointestinal/Abdominal: Denies: nausea, vomiting, diarrhea Psychiatric: Denies: depression Skin: Denies: rash Musculoskeletal: Denies: pain Allergies: Coded Allergies: No Known Allergies (Unverified , 07/30/18) Subjective remains afebrile, no leukocytosis awaiting for a breakfast on RA, pulse ox stable working with PT in isolation troponin with minimal elevation, denies chest pain, SOB Objective Last 24 Hour Vital Signs Date Time Temp Pulse Resp B/P (MAP) Pulse Ox O2 Delivery O2 Flow Rate FiO2 12/31/19 08:13 55 124/94 12/31/19 08:13 124/94 12/31/19 08:13 124/94 12/31/19 08:13 55 124/94 12/31/19 07:59 98.1 62 21 124/94 (104) 100 12/31/19 04:00 53 12/31/19 04:00 97.8 53 18 101/57 (72) 94 12/31/19 00:00 68 12/31/19 00:00 97.5 66 18 142/71 (94) 96 12/30/19 21:00 Room Air 12/30/19 20:00 98.6 70 18 134/69 (90) 95 12/30/19 20:00 70 12/30/19 18:14 74 136/66 12/30/19 18:13 136/66 12/30/19 16:00 74 12/30/19 16:00 96.7 61 20 131/67 (88) 98 12/30/19 13:00 74 128/68 12/30/19 12:00 72 12/30/19 12:00 97.6 68 20 128/68 (88) 95 12/30/19 09:40 139/73 12/30/19 09:40 75 139/73 12/30/19 09:39 75 139/73 12/30/19 09:36 139/73 12/30/19 09:34 139/73 12/30/19 08:34 Room Air 12/30/19 08:30 97.6 68 20 139/73 (95) 95 Intake and Output 12/30/19 12/31/19 19:00 07:00 Intake Total 380 ml Output Total 1200 ml Balance -820 ml Intake Oral 380 ml Output Urine Total 1200 ml # Voids 3 4 Objective General Appearance: elderly male in NAD Lines, tubes and drains: peripheral HEENT: normocephalic, atraumatic, anicteric, mucous membranes moist Neck: supple Respiratory/Chest: no respiratory distress, no accessory muscle use Cardiovascular/Chest: normal rate, regular rhythm, tele with SR Abdomen: normal bowel sounds, non tender, soft Extremities: no calf tenderness, normal capillary refill, no edema Neurologic: alert, responsive, moves all extremities Musculoskeletal: atrophy - BLE Laboratory Tests 12/30/19 12:03: POC Whole Blood Glucose [Pending] 12/30/19 17:11: POC Whole Blood Glucose 223H 12/30/19 21:15: POC Whole Blood Glucose 170H 12/31/19 03:30: White Blood Count 5.4, Red Blood Count 4.24L, Hemoglobin 12.0L, Hematocrit 36.9L , Mean Corpuscular Volume 87, Mean Corpuscular Hemoglobin 28.2, Mean Corpuscular Hemoglobin Concent 32.5, Red Cell Distribution Width 13.1, Platelet Count 165, Mean Platelet Volume 9.6, Neutrophils (%) (Auto) 60.6, Lymphocytes (%) (Auto) 23.6, Monocytes (%) (Auto) 15.4H, Eosinophils (%) (Auto) 0.1, Basophils (%) (Auto) 0.3, Sodium Level 138, Potassium Level 4.2, Chloride Level 109H, Carbon Dioxide Level 21, Anion Gap 8, Blood Urea Nitrogen 39H, Creatinine 1.6H, Estimat Glomerular Filtration Rate 41.8, Glucose Level 93, Calcium Level 8.0L, Total Bilirubin 0.3, Direct Bilirubin 0.1, Aspartate Amino Transf (AST/SGOT) 44H, Alanine Aminotransferase (ALT/SGPT) 67, Alkaline Phosphatase 49, Total Protein 6.1L, Albumin 2.4L, Globulin 3.7, Albumin/Globulin Ratio 0.6L 12/31/19 05:15: POC Whole Blood Glucose 86 Current Medications Medications (Trade) Dose Ordered Sig/Carol Route PRN Reason Start Time Stop Time Status Last Admin Dose Admin Acetaminophen (Tylenol) 650 mg Q4H PRN ORAL FEVER 12/27/19 19:45 01/26/20 19:44 Acetaminophen (Tylenol) 650 mg Q4H PRN ORAL PAIN 1-6 12/27/19 19:45 01/26/20 19:44 Al Hydroxide/Mg Hydroxide (Mylanta) 30 ml Q4H PRN ORAL GI UPSET 12/27/19 20:00 01/26/20 19:59 Albuterol Sulfate (Proventil MDI) 2 puff Q4H PRN INH Shortness of Breath 12/28/19 10:00 03/27/20 09:59 12/29/19 00:33 Amlodipine Besylate (Norvasc) 10 mg DAILY ORAL 12/28/19 09:00 01/27/20 08:59 12/30/19 09:40 Ascorbic Acid (Vitamin C) 500 mg TWICE A DAY ORAL 12/28/19 18:00 01/27/20 17:59 12/31/19 08:10 Aspirin (ASA) 81 mg DAILY ORAL 12/27/19 19:45 02/10/20 19:44 12/31/19 08:11 Atorvastatin Calcium (Lipitor) 20 mg BEDTIME ORAL 12/27/19 21:00 03/26/20 20:59 12/30/19 20:58 Benazepril HCl (Lotensin) 40 mg DAILY ORAL 12/28/19 09:00 01/27/20 08:59 12/30/19 09:40 Ceftriaxone Sodium 1 gm/ Dextrose 55 ml @ 110 mls/hr Q24H IVPB 12/27/19 22:00 01/03/20 21:59 12/30/19 21:00 Dexamethasone Sodium Phosphate (Decadron 10mg/ ml Inj) 6 mg DAILY IV 12/28/19 09:00 01/06/20 09:01 12/31/19 08:14 Dextrose (Dextrose 50%) 25 ml Q30M PRN IV Hypoglycemia 12/27/19 20:00 03/26/20 19:59 Dextrose (Dextrose 50%) 50 ml Q30M PRN IV Hypoglycemia 12/27/19 20:00 03/26/20 19:59 Docusate Sodium (Colace) 250 mg BID ORAL 12/28/19 09:00 01/27/20 08:59 12/31/19 08:10 Donepezil HCl (Aricept) 10 mg QHS ORAL 12/27/19 21:00 01/26/20 20:59 12/30/19 20:58 Doxycycline Monohydrate (Doxycycline Monohydrate) 100 mg EVERY 12 HOURS ORAL 12/28/19 21:00 01/04/20 20:59 12/31/19 08:10 Enoxaparin Sodium (Lovenox) 60 mg DAILY SUBQ 12/28/19 10:15 03/27/20 10:14 12/31/19 08:09 Gabapentin (Neurontin) 300 mg BID ORAL 12/27/19 20:00 01/26/20 19:59 12/31/19 08:11 Hydralazine HCl (Apresoline) 100 mg BID ORAL 12/27/19 20:00 03/26/20 19:59 12/30/19 18:13 Insulin Aspart (NovoLOG) BEFORE MEALS SUBQ 12/28/19 06:30 03/27/20 06:29 12/30/19 16:30 Metoprolol Tartrate (Lopressor) 100 mg TID ORAL 12/28/19 10:15 03/26/20 19:59 12/30/19 18:14 Nitroglycerin (Ntg) 1 patch Q24H TDERMAL 12/28/19 10:15 01/27/20 10:14 12/30/19 09:34 Ondansetron HCl (Zofran) 4 mg Q4H PRN IVP Nausea & Vomiting 12/27/19 19:45 01/26/20 19:44 Pantoprazole (Protonix) 40 mg EVERY 12 HOURS ORAL 12/27/19 21:00 01/26/20 20:59 12/31/19 08:10 Remdesivir 100 mg/ Sodium Chloride 250 ml @ 250 mls/hr Q24H IV 12/28/19 22:00 12/31/19 22:59 12/30/19 22:01 Sennosides (Senokot) 8.6 mg BIDPRN PRN ORAL Constipation 12/27/19 20:00 01/26/20 19:59 Sitagliptin Phosphate (Januvia) 50 mg ACBREAKFAST ORAL 12/28/19 06:30 01/27/20 06:29 12/31/19 05:53 Sodium Chloride 1,000 ml @ 50 mls/hr Q20H IV 12/27/19 19:45 01/26/20 19:44 12/30/19 18:15 Tamsulosin HCl (Flomax) 0.4 mg BEDTIME ORAL 12/27/19 21:00 01/26/20 20:59 12/30/19 20:58 Tramadol HCl (Ultram) 50 mg Q6H PRN ORAL PAIN 7-10 12/27/19 20:00 01/03/20 19:59 12/30/19 22:35 Vitamin D (Vitamin D) 2,000 intlu DAILY ORAL 12/28/19 09:00 01/27/20 08:59 12/31/19 08:12 Zinc Sulfate (Zinc Sulfate) 220 mg DAILY ORAL 12/29/19 09:00 03/28/20 08:59 12/31/19 08:11 Assessment/Plan Assessment/Plan ASSESSMENT Covid 19 PNA Mild hypoxemia Prior smoker Elevated troponin LACIE probably due to mild dehydration possibly on CKD ? HTN CAD DM, Hx of CVA BPH PLAN OF CARE tele isolation titrate to keep sat > 92%, Proventil MDI prn steroids, remdesivvir Day#5 abx a/c with Heparin fup with CXR today fup with inflammatory markers, CRP down to 4.7 zinc, vit C troponin minimally elevated, no c/o CP ECHO with pEF 60-65% ? troponin leak 2/2 renal failure -> consider cardio eval- per primary discretion a/PLT with ASA and BB , nitrites, statin IV hydration home meds resumed as per PMD BP an BS management BP management with multiple anti/HTN regimen: BB, CCB, MARTA, Hydralazine BS management with Januvia and SSI PT eval and Rx, fall precautions supportive care case discussed and evaluated by supervising physician Leonora Rich [employer] Dec 31, 2019 08:26
--- NOTE | 2019-12-31 08:53 | Diagnostic Imaging Report ---
EXAM: XR Chest, 1 View CLINICAL HISTORY: INFECT TECHNIQUE: Frontal view of the chest. COMPARISON: Chest radiograph December 27, 2019 FINDINGS/IMPRESSION: Mild airspace opacity within the lateral aspect of the right upper lung field, suspicious for infiltrate. Follow-up chest radiograph recommended. Note, this is similar in appearance to the prior study from December 27, 2019. No pleural effusion or pneumothorax. Cardiomegaly. Calcified aorta. Median sternotomy wires. Post CABG changes.
[2019-12-31] MEDS: Nitroglycerin Patch 0.4mg TDERMAL SCH (11:41)
--- NOTE | 2019-12-31 11:43 | NUR ---
RD ASSESSMENT & RECOMMENDATIONS SEE CARE ACTIVITY FOR COMPLETE ASSESSMENT DAILY ESTIMATED NEEDS: Needs based on Pulmonary, DM 66.8kg 25-30 kcals/kg total kcals 1-1.5 g protein/kg 67-100 g total protein 25-30 mL/kg total fluid mLs NUTRITION DIAGNOSIS: Altered nutrition related lab values r/t diabetes as evidenced by A1C 6.9, on oral and IM hypoglycemics. CURRENT DIET: CCHO MED PO DIET RECOMMENDATIONS: Consider CCHO LOW (3 carb servings per meal) + added protein portions ADDITIONAL RECOMMENDATIONS: 1) Daily wts have changed from adm, rec recalibrating bed scale Obtain a standing scale wt as able 2) A1C 6.9, BG values improved from adm 3) Monitor for continued good po intake 4) Monitor for change in resp status
[2019-12-31 12:00] VITALS: BP 138/58
--- NOTE | 2019-12-31 13:38 | Cardiology Progress Note ---
Subjective DATE OF SERVICE: Dec 31, 2019 Still weak. No SOB. Appetite slightly better; he remains on supplemental IVF hydration. Remains on remdesivir, steroids, and lovenox. Objective Last 24 Hour Vital Signs Date Time Temp Pulse Resp B/P (MAP) Pulse Ox O2 Delivery O2 Flow Rate FiO2 12/31/19 12:00 96.6 73 22 138/58 (84) 100 12/31/19 12:00 56 12/31/19 11:41 132/61 12/31/19 09:00 Room Air Room Air 12/31/19 08:13 55 124/94 12/31/19 08:13 124/94 12/31/19 08:13 124/94 12/31/19 08:13 55 124/94 12/31/19 08:00 53 12/31/19 07:59 98.1 62 21 124/94 (104) 100 12/31/19 04:00 53 12/31/19 04:00 97.8 53 18 101/57 (72) 94 12/31/19 00:00 68 12/31/19 00:00 97.5 66 18 142/71 (94) 96 12/30/19 21:00 Room Air 12/30/19 20:00 98.6 70 18 134/69 (90) 95 12/30/19 20:00 70 12/30/19 18:14 74 136/66 12/30/19 18:13 136/66 12/30/19 16:00 74 12/30/19 16:00 96.7 61 20 131/67 (88) 98 ROS: no change from my initial evaluation. RHYTHM: NSR, SB LUNGS: lungs clear bilaterally, bilateral rhonchi - few CARDIAC: normal rate, regular rhythm, normal S1 and S2, gallop/S4 ABDOMEN: normal bowel sounds, non tender, soft, no organomegaly EXTREMITIES: normal range of motion, no calf tenderness, No edema Laboratory Tests Test 12/30/19 17:11 12/30/19 21:15 12/31/19 03:30 12/31/19 05:15 POC Whole Blood Glucose 223 MG/DL (74-106) H 170 MG/DL (74-106) H 86 MG/DL (74-106) White Blood Count 5.4 K/UL (4.8-10.8) Red Blood Count 4.24 M/UL (4.70-6.10) L Hemoglobin 12.0 G/DL (14.2-18.0) L Hematocrit 36.9 % (42.0-52.0) L Mean Corpuscular Volume 87 FL (80-99) Mean Corpuscular Hemoglobin 28.2 PG (27.0-31.0) Mean Corpuscular Hemoglobin Concent 32.5 G/DL (32.0-36.0) Red Cell Distribution Width 13.1 % (11.6-14.8) Platelet Count 165 K/UL (150-450) Mean Platelet Volume 9.6 FL (6.5-10.1) Neutrophils (%) (Auto) 60.6 % (45.0-75.0) Lymphocytes (%) (Auto) 23.6 % (20.0-45.0) Monocytes (%) (Auto) 15.4 % (1.0-10.0) H Eosinophils (%) (Auto) 0.1 % (0.0-3.0) Basophils (%) (Auto) 0.3 % (0.0-2.0) Sodium Level 138 MMOL/L (136-145) Potassium Level 4.2 MMOL/L (3.5-5.1) Chloride Level 109 MMOL/L (98-107) H Carbon Dioxide Level 21 MMOL/L (21-32) Anion Gap 8 mmol/L (5-15) Blood Urea Nitrogen 39 mg/dL (7-18) H Creatinine 1.6 MG/DL (0.55-1.30) H Estimat Glomerular Filtration Rate 41.8 mL/min (>60) Glucose Level 93 MG/DL (74-106) Calcium Level 8.0 MG/DL (8.5-10.1) L Total Bilirubin 0.3 MG/DL (0.2-1.0) Direct Bilirubin 0.1 MG/DL (0.0-0.3) Aspartate Amino Transf (AST/SGOT) 44 U/L (15-37) H Alanine Aminotransferase (ALT/SGPT) 67 U/L (12-78) Alkaline Phosphatase 49 U/L (46-116) Total Protein 6.1 G/DL (6.4-8.2) L Albumin 2.4 G/DL (3.4-5.0) L Globulin 3.7 g/dL Albumin/Globulin Ratio 0.6 (1.0-2.7) L EKG INTERPRETATION: (12/26) Sinus tachycardia Septal infarct, age undetermined. No acute changes Assessment/Plan Assessment/Plan COVID 19 PNA Dehydration/hypovolemia Acute myocardial ischemia clinically resolved CAD/Hx IA/Hx CABG Hypertension Sinus bradycardia on high dose beta veronika NIDDM with neuropathy Hypertension/HHD Antivirals/steroids/full anticoagulation Maintain aspirin and statin rx Titrate BBlocker dose Adjust IVF Titrate antiHTN meds Yannick Porras MD Dec 31, 2019 13:38
[2019-12-31 16:00] VITALS: BP 138/67
--- NOTE | 2019-12-31 17:40 | NUR ---
NURSE HAND-OFF REPORT: Important Events on Shift:[pt passive but not resistive to care. complained of being cold otherwise no complaints. poor appetite for dinner, insulin held as pt did not want to eat. ] Patient Status: [in bed resting, stable] Diet: [CCHO medium] Pending Orders: [] Pending Results/Labs:[] Pending MD notification:[] Latest Vital Signs: Temperature 97.6 , Pulse 78 , B/P 138 /67 , Respiratory Rate 21 , O2 SAT 97 , Room Air, O2 Flow Rate . Vital Sign Comment: [] EKG Rhythm: Sinus Bradycardia Rhythm change?: N MD Notified?: N - MD Response: Latest Bay Fall Score: 45 Fall Risk: High Risk Safety Measures: Call light Within Reach, Bed Alarm , Side Rails Side Rails x2, Bed position Low and Locked. Fall Precautions: Yellow Socks Door Sign Patient Fall Education Report given to [Pending Rn assignment]. Addendum: 12/31/19 at 1917 by Jory Pino RN Report given to Katty BOWLES. Pt in bed stable
--- NOTE | 2019-12-31 18:29 | General Progress Note ---
Subjective Constitutional: Reports: weakness HEENT: Reports: no symptoms Cardiovascular: Reports: no symptoms Gastrointestinal/Abdominal: Reports: poor appetite Genitourinary: Reports: no symptoms Neurologic/Psychiatric: Reports: weakness Endocrine: Reports: no symptoms Hematologic/Lymphatic: Reports: no symptoms Allergies: Coded Allergies: No Known Allergies (Unverified , 07/30/18) Subjective weak no distress, difficulty walking Objective Last 24 Hour Vital Signs Date Time Temp Pulse Resp B/P (MAP) Pulse Ox O2 Delivery O2 Flow Rate FiO2 12/31/19 18:24 69 162/80 12/31/19 18:23 162/80 12/31/19 16:00 97.6 59 21 138/67 (90) 97 12/31/19 16:00 78 12/31/19 13:31 84 138/58 12/31/19 12:00 96.6 73 22 138/58 (84) 100 12/31/19 12:00 56 12/31/19 11:41 132/61 12/31/19 09:00 Room Air Room Air 12/31/19 08:13 55 124/94 12/31/19 08:13 124/94 12/31/19 08:13 124/94 12/31/19 08:13 55 124/94 12/31/19 08:00 53 12/31/19 07:59 98.1 62 21 124/94 (104) 100 12/31/19 04:00 53 12/31/19 04:00 97.8 53 18 101/57 (72) 94 12/31/19 00:00 68 12/31/19 00:00 97.5 66 18 142/71 (94) 96 12/30/19 21:00 Room Air 12/30/19 20:00 98.6 70 18 134/69 (90) 95 12/30/19 20:00 70 Intake and Output 12/30/19 12/31/19 19:00 07:00 Intake Total 380 ml Output Total 1200 ml Balance -820 ml Intake Oral 380 ml Output Urine Total 1200 ml # Voids 3 4 Laboratory Tests 12/30/19 21:15: POC Whole Blood Glucose 170H 12/31/19 03:30: White Blood Count 5.4, Red Blood Count 4.24L, Hemoglobin 12.0L, Hematocrit 36.9L , Mean Corpuscular Volume 87, Mean Corpuscular Hemoglobin 28.2, Mean Corpuscular Hemoglobin Concent 32.5, Red Cell Distribution Width 13.1, Platelet Count 165, Mean Platelet Volume 9.6, Neutrophils (%) (Auto) 60.6, Lymphocytes (%) (Auto) 23.6, Monocytes (%) (Auto) 15.4H, Eosinophils (%) (Auto) 0.1, Basophils (%) (Auto) 0.3, Sodium Level 138, Potassium Level 4.2, Chloride Level 109H, Carbon Dioxide Level 21, Anion Gap 8, Blood Urea Nitrogen 39H, Creatinine 1.6H, Estimat Glomerular Filtration Rate 41.8, Glucose Level 93, Calcium Level 8.0L, Total Bilirubin 0.3, Direct Bilirubin 0.1, Aspartate Amino Transf (AST/SGOT) 44H, Alanine Aminotransferase (ALT/SGPT) 67, Alkaline Phosphatase 49, Total Protein 6.1L, Albumin 2.4L, Globulin 3.7, Albumin/Globulin Ratio 0.6L 12/31/19 05:15: POC Whole Blood Glucose 86 Height (Feet): 5 Height (Inches): 5.00 Weight (Pounds): 180 General Appearance: no apparent distress, alert EENT: normal ENT inspection Neck: normal alignment Cardiovascular: normal rate, regular rhythm Respiratory/Chest: lungs clear Abdomen: soft Edema: no edema noted Arm (L), no edema noted Arm (R), no edema noted Leg (L), no edema noted Leg (R), no edema noted Pedal (L), no edema noted Pedal (R), no edema noted Generalized Neurologic: drug safety data management specialist II-XII grossly normal Assessment/Plan Problem List: (1) Dehydration ICD Codes: E86.0 - Dehydration SNOMED: 83746022 (2) Gait abnormality ICD Codes: R26.9 - Unspecified abnormalities of gait and mobility SNOMED: 24472136 (3) CVA, old, cognitive deficits ICD Codes: I69.319 - Unspecified symptoms and signs involving cognitive functions following cerebral infarction SNOMED: 47520799, 459793140, 844853058, 306594094 (4) Troponin level elevated ICD Codes: R77.8 - Other specified abnormalities of plasma proteins SNOMED: 798578509, 245437991, 403545448 (5) CAD (coronary artery disease) ICD Codes: I25.10 - Atherosclerotic heart disease of [place] coronary artery without angina pectoris SNOMED: 47000098 (6) Diabetes ICD Codes: E11.9 - Type 2 diabetes mellitus without complications SNOMED: 97264420 (7) Pneumonia ICD Codes: J18.9 - Pneumonia, unspecified organism SNOMED: 690842089 (8) Chronic pain syndrome ICD Codes: G89.4 - Chronic painsyndrome SNOMED: 465455054 (9) Gastritis ICD Codes: K29.70 - Gastritis, unspecified, without bleeding SNOMED: 4495364 (10) COVID-19 ICD Codes: U07.1 - COVID-19 SNOMED: 939777737 Assessment/Plan: dexamethasone, remdesivir, , beta blockade, asa, isosorbide, PT Nishant Acevedo MD Dec 31, 2019 18:28
--- NOTE | 2019-12-31 19:10 | NUR ---
NURSE NOTES: RECEIVED REPORT FROM JELENA BANEGAS. PATIENT AWAKE IN BED, OX3, PRIMARILY CITIZEN OF [place] SPEAKING. NO COMPLAINTS OF PAIN OR DISCOMFORT AT THIS TIME. BREATHING IS EVEN AND UNLABORED ON ROOM AIR, NO S/SX DISTRESS NOTED AT THIS TIME- RR17, SAO2 96%. IV SITE ON RFA PATENT, INTACT, ASYMPTOMATIC, WITH IVF RUNNING PRESCRIBED. CONDOM CATHETER IN PLACE, DRAINING WELL TO GRAVITY- URINE CLEAR AND DARK YELLOW IN COLOR. FALL AND ASPIRATION PRECAUTIONS IN PLACE- EMPHASIZED CALLING FOR ASSISTANCE PRIOR TO GETTING OOB. CONTACT AND DROPLET ISOLATION MAINTAINED. BED LOCKED AND IN LOWEST POSITION, SIDERAILS UP X 2. CALL LIGHT WITHIN REACH, WILL CONTINUE TO MONITOR PER POC.
[2019-12-31 20:00] VITALS: BP 153/85
--- NOTE | 2019-12-31 20:29 | Consultation ---
DATE OF CONSULTATION: 12/27/2019 CARDIOLOGY CONSULTATION CONSULTING PHYSICIAN: Yannick Porras MD REQUESTING PHYSICIAN: Nihsant Machado MD REASON FOR CONSULTATION: Elevated troponin level. HISTORY OF PRESENT ILLNESS: This is an 79-year-old male. He has a known history of coronary artery disease with prior CABG. He has not had any exertional chest pain. No change in his exercise capacity. He has had a prior heart attack and reportedly had a stress test in the last year or so, which revealed only a fixed defect and no ischemia. At this time, the patient is admitted to the hospital because of COVID-19 infection manifesting with anorexia, weakness, and dehydration. He also had a mild cough and slight shortness of breath with chest x-ray revealing bilateral infiltrates. The patient was noted to have an elevated troponin level on presentation prompting this consultation. PAST MEDICAL HISTORY: History of multiple cerebrovascular accidents, degenerative disk disease with history of sciatica, history of GI bleeding due to gastritis, hypertension, type 2 diabetes mellitus, hyperlipidemia, diabetic neuropathy, prostatic hypertrophy, status post TURP, coronary artery disease with CABG as described above, and prior myocardial infarction. ALLERGIES: None. MEDICATIONS: Reviewed. FAMILY HISTORY: Noncontributory. SOCIAL HISTORY: Former smoker, quit over 30 years ago, 20 pack-year history. Social alcohol. No substance abuse. REVIEW OF SYSTEMS: As outlined above, otherwise all systems negative. PHYSICAL EXAMINATION: GENERAL: Ill-appearing, but alert. VITAL SIGNS: Blood pressure 140/80, heart rate 108, respiratory rate 20, afebrile, and oxygen saturation 95%. HEENT: Dry mucous membranes. NECK: Supple. No jugular venous distention. LUNGS: Clear. CARDIAC: Regular rhythm. Rapid rate. Normal S1, S2 with a fourth heart sound. No murmur. ABDOMEN: Soft, nontender. EXTREMITIES: Good pulses. No edema. NEUROLOGIC: Reveals symmetric strength. Gait is not assessed. LABORATORY DATA: Notable for sodium 138, potassium 4.2, bicarb 19, BUN 35, creatinine 1.7. Magnesium 1.7. Pro-natriuretic peptide 372. Albumin 2.6. Troponin 0.091. EKG revealed sinus tachycardia, possible septal infarction of indeterminate age; no acute ST-T wave changes. IMPRESSION: COVID-19 pneumonia, sinus tachycardia, acute myocardial ischemia, ischemic cardiomyopathy with prior CABG, cerebrovascular disease with history of CVAs, type 2 diabetes mellitus, hyperlipidemia, dehydration, hypovolemia, failure to thrive, and diastolic dysfunction with chronic congestive heart failure. PLAN: Cardiac monitoring. Cautious hydration with IV fluid. Antiviral therapy per Infectious Disease distributor sales consultant. Full anticoagulation. Steroids per primary care physician. Serial troponin levels. Anti-platelet therapy with aspirin. Continue beta-blockade. Hold parameters for low-range blood pressure readings. Orthostatic precautions. Continue statin therapy. Yannick Porras M.D. DR: Ramya JOB#: [id number] CC:
[2019-12-31] MEDS: Donepezil 10mg tab ORAL SCH (20:57)
[2019-12-31] MEDS: Atorvastatin 20mg tab ORAL SCH (20:57)
[2019-12-31] MEDS: Tamsulosin 0.4mg cap ORAL SCH (20:58)
[2019-12-31] MEDS: cefTRIAXone 1gm/D5W 55ml IVPB SCH ×2 (21:08)
[2019-12-31] MEDS: Maintenance Dose:Remdesivir 100mg/NS 230ml x 4 Doses IV SCH ×2 (21:50)
[2020-01-01] VITALS: BP 145/59
--- NOTE | 2020-01-01 00:50 | NUR ---
NURSE NOTES: PATIENT NOTED TO BE IN SUSTAINED SINUS BRADYCARDIA WITH HR OR 46-47; PATIENT PREVIOUSLY NOTED TO HAVE SINUS BRADYCARDIA WITH HR LOW 53. PATIENT IS ASLEEP AND ASYMPTOMATIC- HR WENT UP TO [address] SANTOS TO INFORM HIM, AWAITING CALL BACK FOR ANY NEW ORDERS. WILL CONTINUE TO MONITOR.
[2020-01-01 04:00] VITALS: BP 158/65
[2020-01-01] MEDS: sitaGLIPtin 50mg tab ORAL SCH (05:59)
[2020-01-01] MEDS: NovoLOG Insulin Flexpen SUBQ SCH ×3 (05:59→16:48)
--- NOTE | 2020-01-01 06:15 | NUR ---
NURSE HAND-OFF REPORT: Important Events on Shift: SUSTAINED SINUS BRADYCARDIA WITH HR 46-47 ( CHANGED METOPROLOL ORDER), REFUSAL OF MEDS Patient Status: STABLE Diet: CCHO (MED) Pending Orders: N/A Pending Results/Labs: AM LABS Pending MD notification: N/A Latest Vital Signs: Temperature 98.2 , Pulse 69 , B/P 158 /65 , Respiratory Rate 18 , O2 SAT 97 , Room Air, O2 Flow Rate . Vital Sign Comment: STABLE- SINUS HECTOR (STABLE, ASYMPTOMATIC) EKG Rhythm: Sinus Rhythm Rhythm change?: N MD Notified?: N - MD Response: Latest Bay Fall Score: 45 Fall Risk: High Risk Safety Measures: Call light Within Reach, Bed Alarm Zone 1, Side Rails Side Rails x2, Bed position Low and Locked. Fall Precautions: Yellow Socks Yellow Gown Door Sign Patient Fall Education Report given to WILL AMEND ONCE REPORT GIVEN TO ASSIGNED NURSE. Addendum: 01/01/20 at 0655 by Katty Johnson RN REPORT GIVEN TO JELENA BANEGAS.
--- NOTE | 2020-01-01 06:57 | NUR ---
NURSE NOTES: Pt received from Katty Kwon. Pt in bed sleeping. no distress noted. bed low and locked. call light within reach.
[2020-01-01 07:04] LABS: BASOPHILS % (AUTO) 0.9 % (0.0-2.0); EOSINOPHILS % (AUTO) 0.2 % (0.0-3.0); HEMATOCRIT 38.7 % (42.0-52.0); HEMOGLOBIN 12.3 G/DL (14.2-18.0); LYMPHOCYTES % (AUTO) 22.2 % (20.0-45.0); MEAN CORPUSCULAR VOLUME 89 FL (80-99); MONOCYTES % (AUTO) 12.6 % (1.0-10.0); PLATELET COUNT 169 K/UL (150-450); RED BLOOD COUNT 4.37 M/UL (4.70-6.10); RED CELL DISTRIBUTION WIDTH 12.9 % (11.6-14.8); WHITE BLOOD COUNT 6.4 K/UL (4.8-10.8)
[2020-01-01 07:15] LABS: CALCIUM 8.5 MG/DL (8.5-10.1); CREATININE 1.6 MG/DL (0.55-1.30); POTASSIUM 3.7 MMOL/L (3.5-5.1)
[2020-01-01 08:00] VITALS: BP 175/84
[2020-01-01] MEDS: Doxycycline Monohydrate 100mg ORAL SCH ×2 (08:05→21:32)
[2020-01-01] MEDS: Docusate 250mg cap ORAL SCH ×2 (08:05→17:49)
[2020-01-01] MEDS: Vitamin D 1000 IU Tab ORAL SCH (08:06)
[2020-01-01] MEDS: Ascorbic Acid 500mg tab ORAL SCH ×2 (08:06→17:49)
[2020-01-01] MEDS: Aspirin Baby 81mg ORAL SCH (08:06)
[2020-01-01] MEDS: Zinc Sulfate 220mg ORAL SCH (08:06)
[2020-01-01] MEDS: dexAMETHasone 10mg/ml Inj IV SCH (08:06)
[2020-01-01] MEDS: HydrALAZINE 50mg tab ORAL SCH ×2 (08:06→17:49)
[2020-01-01] MEDS: Enoxaparin 60mg Inj SUBQ SCH (08:08)
[2020-01-01] MEDS: Metoprolol Tartrate 100mg tab ORAL SCH ×2 (08:10→21:31)
--- NOTE | 2020-01-01 09:30 | NUR ---
NURSE NOTES: pt had 1 episode of vomiting. No report of nauseo on morning round. However Pt had a large amount of water while taking his morning medication 1 by 1 then put his head down flat. After vomiting immediately reported feeling better. Will inform Dr. mijares.
--- NOTE | 2020-01-01 09:53 | Pulmonology Progress Note ---
Subjective Constitutional: Denies: fever Gastrointestinal/Abdominal: Denies: nausea, vomiting, diarrhea Psychiatric: Denies: depression Skin: Denies: rash Musculoskeletal: Denies: pain Allergies: Coded Allergies: No Known Allergies (Unverified , 07/30/18) Subjective remains afebrile, no leukocytosis on RA, pulse ox stable in isolation denies chest pain, SOB Objective Last 24 Hour Vital Signs Date Time Temp Pulse Resp B/P (MAP) Pulse Ox O2 Delivery O2 Flow Rate FiO2 01/01/20 09:00 Room Air Room Air 01/01/20 08:10 70 175/84 01/01/20 08:06 175/84 01/01/20 08:05 175/84 01/01/20 08:05 70 175/84 01/01/20 08:00 71 01/01/20 08:00 97.7 70 18 175/84 (114) 96 01/01/20 04:00 62 01/01/20 04:00 98.2 69 18 158/65 (96) 97 01/01/20 00:00 65 01/01/20 00:00 96.5 66 18 145/59 (87) 96 12/31/19 21:00 Room Air Room Air 12/31/19 20:00 97.9 89 20 153/85 (107) 96 12/31/19 20:00 73 12/31/19 18:24 69 162/80 12/31/19 18:23 162/80 12/31/19 16:00 97.6 59 21 138/67 (90) 97 12/31/19 16:00 78 12/31/19 13:31 84 138/58 12/31/19 12:00 96.6 73 22 138/58 (84) 100 12/31/19 12:00 56 12/31/19 11:41 132/61 Intake and Output 12/31/19 01/01/20 19:00 07:00 Intake Total 181.67 ml 560 ml Output Total 200 ml 550 ml Balance -18.33 ml 10 ml Intake Oral 60 ml IV Total 181.67 ml 500 ml Output Urine Total 200 ml 550 ml # Voids 3 Objective General Appearance: elderly male in NAD Lines, tubes and drains: peripheral HEENT: normocephalic, atraumatic, anicteric, mucous membranes moist Neck: supple Respiratory/Chest: no respiratory distress, no accessory muscle use Cardiovascular/Chest: normal rate, regular rhythm, tele with SR Abdomen: normal bowel sounds, non tender, soft Extremities: no calf tenderness, normal capillary refill, no edema Neurologic: alert, responsive, moves all extremities Musculoskeletal: atrophy - BLE Laboratory Tests 01/01/20 05:35: POC Whole Blood Glucose 92 01/01/20 06:00: White Blood Count 6.4, Red Blood Count 4.37L, Hemoglobin 12.3L, Hematocrit 38.7L , Mean Corpuscular Volume 89, Mean Corpuscular Hemoglobin 28.2, Mean Corpuscular Hemoglobin Concent 31.9L, Red Cell Distribution Width 12.9, Platelet Count 169, Mean Platelet Volume 7.7, Neutrophils (%) (Auto) 64.0, Lymphocytes (%) (Auto) 22.2, Monocytes (%) (Auto) 12.6H, Eosinophils (%) (Auto) 0.2, Basophils (%) (Auto) 0.9, Sodium Level 140, Potassium Level 3.7, Chloride Level 109H, Carbon Dioxide Level 19L, Anion Gap 12, Blood Urea Nitrogen 34H, Creatinine 1.6H, Estimat Glomerular Filtration Rate 41.8, Glucose Level 88, Calcium Level 8.5 Current Medications Medications (Trade) Dose Ordered Sig/Carol Route PRN Reason Start Time Stop Time Status Last Admin Dose Admin Acetaminophen (Tylenol) 650 mg Q4H PRN ORAL FEVER 12/27/19 19:45 01/26/20 19:44 Acetaminophen (Tylenol) 650 mg Q4H PRN ORAL PAIN 1-6 12/27/19 19:45 01/26/20 19:44 Al Hydroxide/Mg Hydroxide (Mylanta) 30 ml Q4H PRN ORAL GI UPSET 12/27/19 20:00 01/26/20 19:59 Albuterol Sulfate (Proventil MDI) 2 puff Q4H PRN INH Shortness of Breath 12/28/19 10:00 03/27/20 09:59 12/29/19 00:33 Amlodipine Besylate (Norvasc) 10 mg DAILY ORAL 12/28/19 09:00 01/27/20 08:59 01/01/20 08:05 Ascorbic Acid (Vitamin C) 500 mg TWICE A DAY ORAL 12/28/19 18:00 01/27/20 17:59 01/01/20 08:06 Aspirin (ASA) 81 mg DAILY ORAL 12/27/19 19:45 02/10/20 19:44 01/01/20 08:06 Atorvastatin Calcium (Lipitor) 20 mg BEDTIME ORAL 12/27/19 21:00 03/26/20 20:59 12/31/19 20:57 Benazepril HCl (Lotensin) 40 mg DAILY ORAL 12/28/19 09:00 01/27/20 08:59 01/01/20 08:05 Ceftriaxone Sodium 1 gm/ Dextrose 55 ml @ 110 mls/hr Q24H IVPB 12/27/19 22:00 01/03/20 21:59 12/31/19 21:08 Dexamethasone Sodium Phosphate (Decadron 10mg/ ml Inj) 6 mg DAILY IV 12/28/19 09:00 01/06/20 09:01 01/01/20 08:06 Dextrose (Dextrose 50%) 25 ml Q30M PRN IV Hypoglycemia 12/27/19 20:00 03/26/20 19:59 Dextrose (Dextrose 50%) 50 ml Q30M PRN IV Hypoglycemia 12/27/19 20:00 03/26/20 19:59 Docusate Sodium (Colace) 250 mg BID ORAL 12/28/19 09:00 01/27/20 08:59 01/01/20 08:05 Donepezil HCl (Aricept) 10 mg QHS ORAL 12/27/19 21:00 01/26/20 20:59 12/31/19 20:57 Doxycycline Monohydrate (Doxycycline Monohydrate) 100 mg EVERY 12 HOURS ORAL 12/28/19 21:00 01/04/20 20:59 01/01/20 08:05 Enoxaparin Sodium (Lovenox) 60 mg DAILY SUBQ 12/28/19 10:15 03/27/20 10:14 01/01/20 08:08 Gabapentin (Neurontin) 300 mg BID ORAL 12/27/19 20:00 01/26/20 19:59 01/01/20 08:05 Hydralazine HCl (Apresoline) 100 mg BID ORAL 12/27/19 20:00 03/26/20 19:59 01/01/20 08:06 Insulin Aspart (NovoLOG) BEFORE MEALS SUBQ 12/28/19 06:30 03/27/20 06:29 12/31/19 16:46 Metoprolol Tartrate (Lopressor) 100 mg EVERY 12 HOURS ORAL 01/01/20 09:00 03/31/20 08:59 01/01/20 08:10 Nitroglycerin (Ntg) 1 patch Q24H TDERMAL 12/28/19 10:15 01/27/20 10:14 12/31/19 11:41 Ondansetron HCl (Zofran) 4 mg Q4H PRN IVP Nausea & Vomiting 12/27/19 19:45 01/26/20 19:44 Pantoprazole (Protonix) 40 mg EVERY 12 HOURS ORAL 12/27/19 21:00 01/26/20 20:59 01/01/20 08:06 Sennosides (Senokot) 8.6 mg BIDPRN PRN ORAL Constipation 12/27/19 20:00 01/26/20 19:59 Sitagliptin Phosphate (Januvia) 50 mg ACBREAKFAST ORAL 12/28/19 06:30 01/27/20 06:29 12/31/19 05:53 Sodium Chloride 1,000 ml @ 50 mls/hr Q20H IV 12/27/19 19:45 01/26/20 19:44 12/31/19 15:22 Tamsulosin HCl (Flomax) 0.4 mg BEDTIME ORAL 12/27/19 21:00 01/26/20 20:59 12/31/19 20:58 Tramadol HCl (Ultram) 50 mg Q6H PRN ORAL PAIN 7-10 12/27/19 20:00 01/03/20 19:59 12/30/19 22:35 Vitamin D (Vitamin D) 2,000 intlu DAILY ORAL 12/28/19 09:00 01/27/20 08:59 01/01/20 08:06 Zinc Sulfate (Zinc Sulfate) 220 mg DAILY ORAL 12/29/19 09:00 03/28/20 08:59 01/01/20 08:06 Assessment/Plan Assessment/Plan ASSESSMENT Covid 19 PNA Mild hypoxemia Prior smoker Elevated troponin LACIE probably due to mild dehydration possibly on CKD ? HTN CAD DM, Hx of CVA BPH PLAN OF CARE tele isolation titrate to keep sat > 92%, Proventil MDI prn steroids D#6, completed remdesivir x 5 days abx Doxy and Ceftriaxone a/c with Heparin CXR 12/30 -Mild airspace opacity within the lateral aspect of the right upper lung field, suspicious for infiltrate. Findingins similar to CXR 12/26 fup with inflammatory markers, CRP down to 4.7 zinc, vit C troponin minimally elevated, no c/o CP ECHO with pEF 60-65% ? troponin leak 2/2 renal failure -> consider cardio eval- per primary discretion a/PLT with ASA and BB , nitrites, statin IV hydration home meds resumed as per PMD BP an BS management BP management with multiple anti/HTN regimen: BB, CCB, MARTA, Hydralazine BS management with Januvia and SSI PT eval and Rx, fall precautions supportive care case discussed and evaluated by supervising physician Leonora Rich NP Jan 01, 2020 09:53 True Barrett MD Jan 01, 2020 15:04
[2020-01-01] MEDS: Nitroglycerin Patch 0.4mg TDERMAL SCH (11:36)
[2020-01-01 12:00] VITALS: BP 149/65
[2020-01-01] MEDS: traMADol 50mg tab ORAL PRN (13:59)
[2020-01-01 16:00] VITALS: BP 155/67
--- NOTE | 2020-01-01 16:00 | General Progress Note ---
Subjective Constitutional: Reports: weakness HEENT: Reports: no symptoms Cardiovascular: Reports: no symptoms Respiratory: Reports: no symptoms Gastrointestinal/Abdominal: Reports: nausea Genitourinary: Reports: no symptoms Neurologic/Psychiatric: Reports: weakness Endocrine: Reports: no symptoms Hematologic/Lymphatic: Reports: no symptoms Allergies: Coded Allergies: No Known Allergies (Unverified , 07/30/18) Subjective weak no distress, difficulty walking Objective Last 24 Hour Vital Signs Date Time Temp Pulse Resp B/P (MAP) Pulse Ox O2 Delivery O2 Flow Rate FiO2 01/01/20 14:29 98.4 01/01/20 12:00 73 01/01/20 12:00 98.4 76 18 149/65 (93) 79 01/01/20 11:36 149/65 01/01/20 09:00 Room Air Room Air 01/01/20 08:10 70 175/84 01/01/20 08:06 175/84 01/01/20 08:05 175/84 01/01/20 08:05 70 175/84 01/01/20 08:00 71 01/01/20 08:00 97.7 70 18 175/84 (114) 96 01/01/20 04:00 62 01/01/20 04:00 98.2 69 18 158/65 (96) 97 01/01/20 00:00 65 01/01/20 00:00 96.5 66 18 145/59 (87) 96 12/31/19 21:00 Room Air Room Air 12/31/19 20:00 97.9 89 20 153/85 (107) 96 12/31/19 20:00 73 12/31/19 18:24 69 162/80 12/31/19 18:23 162/80 12/31/19 16:00 97.6 59 21 138/67 (90) 97 12/31/19 16:00 78 Intake and Output 12/31/19 01/01/20 19:00 07:00 Intake Total 181.67 ml 560 ml Output Total 200 ml 550 ml Balance -18.33 ml 10 ml Intake Oral 60 ml IV Total 181.67 ml 500 ml Output Urine Total 200 ml 550 ml # Voids 3 Laboratory Tests 01/01/20 05:35: POC Whole Blood Glucose 92 01/01/20 06:00: White Blood Count 6.4, Red Blood Count 4.37L, Hemoglobin 12.3L, Hematocrit 38.7L , Mean Corpuscular Volume 89, Mean Corpuscular Hemoglobin 28.2, Mean Corpuscular Hemoglobin Concent 31.9L, Red Cell Distribution Width 12.9, Platelet Count 169, Mean Platelet Volume 7.7, Neutrophils (%) (Auto) 64.0, Lymphocytes (%) (Auto) 22.2, Monocytes (%) (Auto) 12.6H, Eosinophils (%) (Auto) 0.2, Basophils (%) (Auto) 0.9, Sodium Level 140, Potassium Level 3.7, Chloride Level 109H, Carbon Dioxide Level 19L, Anion Gap 12, Blood Urea Nitrogen 34H, Creatinine 1.6H, Estimat Glomerular Filtration Rate 41.8, Glucose Level 88, Calcium Level 8.5 Height (Feet): 5 Height (Inches): 5.00 Weight (Pounds): 180 General Appearance: alert EENT: normal ENT inspection Neck: normal alignment Cardiovascular: regular rhythm Respiratory/Chest: lungs clear Abdomen: non tender, soft Edema: no edema noted Arm (L), no edema noted Arm (R), no edema noted Leg (L), no edema noted Leg (R), no edema noted Pedal (L), no edema noted Pedal (R), no edema noted 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 Assessment/Plan Problem List: (1) Dehydration ICD Codes: E86.0 - Dehydration SNOMED: 06497290 (2) Gait abnormality ICD Codes: R26.9 - Unspecified abnormalities of gait and mobility SNOMED: 11309673 (3) CVA, old, cognitive deficits ICD Codes: I69.319 - Unspecified symptoms and signs involving cognitive functions following cerebral infarction SNOMED: 14751093, 778358115, 754600962, 497010645 (4) Troponin level elevated ICD Codes: R77.8 - Other specified abnormalities of plasma proteins SNOMED: 154986216, 952709594, 872524650 (5) CAD (coronary artery disease) ICD Codes: I25.10 - Atherosclerotic heart disease of [place] coronary artery without angina pectoris SNOMED: 20870103 (6) Diabetes ICD Codes: E11.9 - Type 2 diabetes mellitus without complications SNOMED: 58419945 (7) Pneumonia ICD Codes: J18.9 - Pneumonia, unspecified organism SNOMED: 525318320 (8) Chronic pain syndrome ICD Codes: G89.4 - Chronic painsyndrome SNOMED: 421342751 (9) Gastritis ICD Codes: K29.70 - Gastritis, unspecified, without bleeding SNOMED: 9024114 (10) COVID-19 ICD Codes: U07.1 - COVID-19 SNOMED: 714117676 Assessment/Plan: dexamethasone, remdesivir, , beta blockade, asa, isosorbide, PT Nishant Acevedo MD Jan 01, 2020 16:00
--- NOTE | 2020-01-01 18:57 | NUR ---
NURSE HAND-OFF REPORT: Important Events on Shift:[pt had [address] Machado made aware. plan is to try to keep him active in chair and ambulate as much as possible.] Patient Status: [in bed resting stable] Diet: [CCHO M] Pending Orders: [] Pending Results/Labs:[] Pending MD notification:[] Latest Vital Signs: Temperature 98.8 , Pulse 71 , B/P 155 /67 , Respiratory Rate 18 , O2 SAT 98 , Room Air, O2 Flow Rate . Vital Sign Comment: [] EKG Rhythm: Sinus Rhythm Rhythm change?: N MD Notified?: N - MD Response: Latest Bay Fall Score: 45 Fall Risk: High Risk Safety Measures: Call light Within Reach, Bed Alarm Zone 1, Side Rails Side Rails x2, Bed position Low and Locked. Fall Precautions: Yellow Socks Yellow Gown Door Sign Patient Fall Education Report given to [Pending rn assignment ]. Addendum: 01/01/20 at 192 by Jory Pion RN Report given Daphney Kwon
--- NOTE | 2020-01-01 19:30 | NUR ---
NURSE NOTES: Patient received from JELENA Corley. Patient is currently sleeping, easily arousable. Patient is on room air satting at 99%, no respiratory distress noted. Patient has a 20 gauge IV on his right forearm, saline locked. Patient has a condom catheter, patent and well draining. Patient has no complaints as of the moment. Bed is in the lowest position, call light within reach. Will continue to monitor.
[2020-01-01 20:00] VITALS: BP 131/62
--- NOTE | 2020-01-01 20:18 | Infectious Diseases Prog Note ---
Assessment/Plan Assessment/Plan ASSESSMENT AND PLAN: 1. covid-19 infection with pna, ? CAP, hypoxia - dexamethasone day # 6 - s/p remdesivir - ceftriaxone and doxycycline - day # 6/7 - clinically stable, saturations stable - monitor labs and chest x-ray 2. COVID-19 isolation. Continue supportive care and isolation, proper PPEs worn. 3. Diabetes. 4. Coronary heart disease. 5. Hypertension. 6. Blood sugar and blood pressure treatment per primary care team. 7. CVA. 8. Elevated creatinine. 9. Questionable hyperlipidemia. 10. Hypertensive heart disease. 11. Coronary artery disease. 12. Gastritis and GI bleed. 13. Dehydration, IV fluids. 14. Weakness. 15. Hypoxia. 16. Sciatica. 17. Degenerative disc disease. 18. No known drug allergies. 19. Social history is negative. 20. Family history is noncontributory. 21. MAR is noted. 22. Communicated case with Dr. Machado. 23. Continue treatment per primary consultants. Subjective Constitutional: Reports: fatigue; Denies: fever HEENT: Denies: congestion Respiratory: Denies: shortness of breath Cardiovascular: Denies: chest pain Gastrointestinal/Abdominal: Denies: vomiting, diarrhea Genitourinary: Reports: other - no alicia Neurologic: Denies: headache Psychiatric: Denies: depression Skin: Denies: rash Hematologic: Denies: bleeding Musculoskeletal: Denies: pain Allergies: Coded Allergies: No Known Allergies (Unverified , 07/30/18) Objective Last 24 Hour Vital Signs Date Time Temp Pulse Resp B/P (MAP) Pulse Ox O2 Delivery O2 Flow Rate FiO2 01/01/20 17:49 155/67 01/01/20 16:00 71 01/01/20 16:00 98.8 70 18 155/67 (96) 98 01/01/20 14:29 98.4 01/01/20 12:00 73 01/01/20 12:00 98.4 76 18 149/65 (93) 79 01/01/20 11:36 149/65 01/01/20 09:00 Room Air Room Air 01/01/20 08:10 70 175/84 01/01/20 08:06 175/84 01/01/20 08:05 175/84 01/01/20 08:05 70 175/84 01/01/20 08:00 71 01/01/20 08:00 97.7 70 18 175/84 (114) 96 01/01/20 04:00 62 01/01/20 04:00 98.2 69 18 158/65 (96) 97 01/01/20 00:00 65 01/01/20 00:00 96.5 66 18 145/59 (87) 96 12/31/19 21:00 Room Air Room Air Height (Feet): 5 Height (Inches): 5.00 Weight (Pounds): 180 General Appearance: no acute distress HEENT: normocephalic, atraumatic, anicteric, mucous membranes moist Respiratory/Chest: no respiratory distress, no accessory muscle use, crackles/rales, rhonchi - bilaterally Cardiovascular: normal rate, regular rhythm Abdomen: normal bowel sounds, soft, non tender, no organomegaly, non distended Genitourinary: other - no alicia, no cva pain Extremities: no cyanosis Skin: no rash 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 COMPARISON: Chest x-ray dated 05/28/2017 FINDINGS: Lungs: Scattered airspace opacities within the central and upper lungs which may represent pulmonary vascular congestion versus an infectious process. Pleural space: Unremarkable. Heart: Unremarkable. Mediastinum: Unremarkable. Bones/joints: Evidence of prior median sternotomy. IMPRESSION: Scattered airspace opacities within the central and upper lungs which may represent pulmonary vascular congestion versus an infectious process. Microbiology Date/Time Source Procedure Growth Status 12/27/19 16:35 Nasopharynx SARS-CoV-2 RdRp Gene Assay - Final Complete Laboratory Tests Test 01/01/20 05:35 01/01/20 06:00 POC Whole Blood Glucose 92 MG/DL (74-106) White Blood Count 6.4 K/UL (4.8-10.8) Red Blood Count 4.37 M/UL (4.70-6.10) L Hemoglobin 12.3 G/DL (14.2-18.0) L Hematocrit 38.7 % (42.0-52.0) L Mean Corpuscular Volume 89 FL (80-99) Mean Corpuscular Hemoglobin 28.2 PG (27.0-31.0) Mean Corpuscular Hemoglobin Concent 31.9 G/DL (32.0-36.0) L Red Cell Distribution Width 12.9 % (11.6-14.8) Platelet Count 169 K/UL (150-450) Mean Platelet Volume 7.7 FL (6.5-10.1) Neutrophils (%) (Auto) 64.0 % (45.0-75.0) Lymphocytes (%) (Auto) 22.2 % (20.0-45.0) Monocytes (%) (Auto) 12.6 % (1.0-10.0) H Eosinophils (%) (Auto) 0.2 % (0.0-3.0) Basophils (%) (Auto) 0.9 % (0.0-2.0) Sodium Level 140 MMOL/L (136-145) Potassium Level 3.7 MMOL/L (3.5-5.1) Chloride Level 109 MMOL/L (98-107) H Carbon Dioxide Level 19 MMOL/L (21-32) L Anion Gap 12 mmol/L (5-15) Blood Urea Nitrogen 34 mg/dL (7-18) H Creatinine 1.6 MG/DL (0.55-1.30) H Estimat Glomerular Filtration Rate 41.8 mL/min (>60) Glucose Level 88 MG/DL (74-106) Calcium Level 8.5 MG/DL (8.5-10.1) Current Medications Medications (Trade) Dose Ordered Sig/Carol Route PRN Reason Start Time Stop Time Status Last Admin Dose Admin Acetaminophen (Tylenol) 650 mg Q4H PRN ORAL FEVER 12/27/19 19:45 01/26/20 19:44 Acetaminophen (Tylenol) 650 mg Q4H PRN ORAL PAIN 1-6 12/27/19 19:45 01/26/20 19:44 Al Hydroxide/Mg Hydroxide (Mylanta) 30 ml Q4H PRN ORAL GI UPSET 12/27/19 20:00 01/26/20 19:59 Albuterol Sulfate (Proventil MDI) 2 puff Q4H PRN INH Shortness of Breath 12/28/19 10:00 2/10/21 09:59 12/29/19 00:33 Amlodipine Besylate (Norvasc) 10 mg DAILY ORAL 12/28/19 09:00 01/27/20 08:59 01/01/20 08:05 Ascorbic Acid (Vitamin C) 500 mg TWICE A DAY ORAL 12/28/19 18:00 01/27/20 17:59 01/01/20 17:49 Aspirin (ASA) 81 mg DAILY ORAL 12/27/19 19:45 02/10/20 19:44 01/01/20 08:06 Atorvastatin Calcium (Lipitor) 20 mg BEDTIME ORAL 12/27/19 21:00 03/26/20 20:59 12/31/19 20:57 Benazepril HCl (Lotensin) 40 mg DAILY ORAL 12/28/19 09:00 01/27/20 08:59 01/01/20 08:05 Ceftriaxone Sodium 1 gm/ Dextrose 55 ml @ 110 mls/hr Q24H IVPB 12/27/19 22:00 01/03/20 21:59 12/31/19 21:08 Dexamethasone Sodium Phosphate (Decadron 10mg/ ml Inj) 6 mg DAILY IV 12/28/19 09:00 01/06/20 09:01 01/01/20 08:06 Dextrose (Dextrose 50%) 25 ml Q30M PRN IV Hypoglycemia 12/27/19 20:00 03/26/20 19:59 Dextrose (Dextrose 50%) 50 ml Q30M PRN IV Hypoglycemia 12/27/19 20:00 03/26/20 19:59 Docusate Sodium (Colace) 250 mg BID ORAL 12/28/19 09:00 01/27/20 08:59 01/01/20 17:49 Donepezil HCl (Aricept) 10 mg QHS ORAL 12/27/19 21:00 01/26/20 20:59 12/31/19 20:57 Doxycycline Monohydrate (Doxycycline Monohydrate) 100 mg EVERY 12 HOURS ORAL 12/28/19 21:00 01/04/20 20:59 01/01/20 08:05 Enoxaparin Sodium (Lovenox) 60 mg DAILY SUBQ 12/28/19 10:15 03/27/20 10:14 01/01/20 08:08 Gabapentin (Neurontin) 300 mg BID ORAL 12/27/19 20:00 01/26/20 19:59 01/01/20 17:49 Hydralazine HCl (Apresoline) 100 mg BID ORAL 12/27/19 20:00 03/26/20 19:59 01/01/20 17:49 Insulin Aspart (NovoLOG) BEFORE MEALS SUBQ 12/28/19 06:30 03/27/20 06:29 01/01/20 16:48 Metoprolol Tartrate (Lopressor) 100 mg EVERY 12 HOURS ORAL 01/01/20 09:00 03/31/20 08:59 01/01/20 08:10 Nitroglycerin (Ntg) 1 patch Q24H TDERMAL 12/28/19 10:15 01/27/20 10:14 01/01/20 11:36 Ondansetron HCl (Zofran) 4 mg Q4H PRN IVP Nausea & Vomiting 12/27/19 19:45 01/26/20 19:44 Pantoprazole (Protonix) 40 mg EVERY 12 HOURS ORAL 12/27/19 21:00 01/26/20 20:59 01/01/20 08:06 Sennosides (Senokot) 8.6 mg BIDPRN PRN ORAL Constipation 12/27/19 20:00 01/26/20 19:59 Sitagliptin Phosphate (Januvia) 50 mg ACBREAKFAST ORAL 12/28/19 06:30 01/27/20 06:29 12/31/19 05:53 Tamsulosin HCl (Flomax) 0.4 mg BEDTIME ORAL 12/27/19 21:00 01/26/20 20:59 12/31/19 20:58 Tramadol HCl (Ultram) 50 mg Q6H PRN ORAL PAIN 7-10 12/27/19 20:00 01/03/20 19:59 01/01/20 13:59 Vitamin D (Vitamin D) 2,000 intlu DAILY ORAL 12/28/19 09:00 01/27/20 08:59 01/01/20 08:06 Zinc Sulfate (Zinc Sulfate) 220 mg DAILY ORAL 12/29/19 09:00 03/28/20 08:59 01/01/20 08:06 Gracia Bryant MD Jan 01, 2020 20:18
[2020-01-01] MEDS: Donepezil 10mg tab ORAL SCH (21:30)
[2020-01-01] MEDS: Atorvastatin 20mg tab ORAL SCH (21:31)
[2020-01-01] MEDS: Tamsulosin 0.4mg cap ORAL SCH (21:32)
[2020-01-01] MEDS: cefTRIAXone 1gm/D5W 55ml IVPB SCH ×2 (21:33)
[2020-01-02] VITALS: BP 129/57
--- NOTE | 2020-01-02 00:19 | Cardiology Progress Note ---
Subjective More alert. No SOB. Appetite slightly better; he remains on supplemental IVF hydration. Monitor: SInus bradycardia overnite to the 40's. Objective Last 24 Hour Vital Signs Date Time Temp Pulse Resp B/P (MAP) Pulse Ox O2 Delivery O2 Flow Rate FiO2 01/01/20 21:31 82 131/62 01/01/20 21:00 Room Air Room Air 01/01/20 20:00 98.1 82 21 131/62 (85) 96 01/01/20 20:00 70 01/01/20 17:49 155/67 01/01/20 16:00 71 01/01/20 16:00 98.8 70 18 155/67 (96) 98 01/01/20 14:29 98.4 01/01/20 12:00 73 01/01/20 12:00 98.4 76 18 149/65 (93) 79 01/01/20 11:36 149/65 01/01/20 09:00 Room Air Room Air 01/01/20 08:10 70 175/84 01/01/20 08:06 175/84 01/01/20 08:05 175/84 01/01/20 08:05 70 175/84 01/01/20 08:00 71 01/01/20 08:00 97.7 70 18 175/84 (114) 96 01/01/20 04:00 62 01/01/20 04:00 98.2 69 18 158/65 (96) 97 ROS: no change from my initial evaluation. RHYTHM: NSR, SB LUNGS: lungs clear bilaterally, bilateral rhonchi - few CARDIAC: normal rate, regular rhythm, normal S1 and S2, gallop/S4 ABDOMEN: normal bowel sounds, non tender, soft, no organomegaly EXTREMITIES: normal range of motion, no calf tenderness, No edema Laboratory Tests Test 01/01/20 05:35 01/01/20 06:00 POC Whole Blood Glucose 92 MG/DL (74-106) White Blood Count 6.4 K/UL (4.8-10.8) Red Blood Count 4.37 M/UL (4.70-6.10) L Hemoglobin 12.3 G/DL (14.2-18.0) L Hematocrit 38.7 % (42.0-52.0) L Mean Corpuscular Volume 89 FL (80-99) Mean Corpuscular Hemoglobin 28.2 PG (27.0-31.0) Mean Corpuscular Hemoglobin Concent 31.9 G/DL (32.0-36.0) L Red Cell Distribution Width 12.9 % (11.6-14.8) Platelet Count 169 K/UL (150-450) Mean Platelet Volume 7.7 FL (6.5-10.1) Neutrophils (%) (Auto) 64.0 % (45.0-75.0) Lymphocytes (%) (Auto) 22.2 % (20.0-45.0) Monocytes (%) (Auto) 12.6 % (1.0-10.0) H Eosinophils (%) (Auto) 0.2 % (0.0-3.0) Basophils (%) (Auto) 0.9 % (0.0-2.0) Sodium Level 140 MMOL/L (136-145) Potassium Level 3.7 MMOL/L (3.5-5.1) Chloride Level 109 MMOL/L (98-107) H Carbon Dioxide Level 19 MMOL/L (21-32) L Anion Gap 12 mmol/L (5-15) Blood Urea Nitrogen 34 mg/dL (7-18) H Creatinine 1.6 MG/DL (0.55-1.30) H Estimat Glomerular Filtration Rate 41.8 mL/min (>60) Glucose Level 88 MG/DL (74-106) Calcium Level 8.5 MG/DL (8.5-10.1) Assessment/Plan Assessment/Plan COVID 19 PNA Dehydration/hypovolemia Acute myocardial ischemia clinically resolved CAD/Hx MD/Hx CABG Hypertension Sinus bradycardia on high dose beta veronika NIDDM with neuropathy Hypertension/HHD Antivirals/steroids/full anticoagulation Maintain aspirin and statin rx Decrease BBlocker dose Adjust IVF Titrate antiHTN meds based on clinical parameters. Yannick Porras MD Jan 02, 2020 00:19
[2020-01-02 04:00] VITALS: BP 130/50
[2020-01-02] MEDS: NovoLOG Insulin Flexpen SUBQ SCH ×3 (06:30→16:16)
[2020-01-02] MEDS: sitaGLIPtin 50mg tab ORAL SCH (06:31)
[2020-01-02 07:24] LABS: ALBUMIN 2.6 G/DL (3.4-5.0); ALBUMIN/GLOBULIN RATIO 0.7 (1.0-2.7); BILIRUBIN,TOTAL 0.3 MG/DL (0.2-1.0); CALCIUM 8.8 MG/DL (8.5-10.1); CREATININE 1.5 MG/DL (0.55-1.30); POTASSIUM 3.9 MMOL/L (3.5-5.1)
[2020-01-02 07:30] LABS: BASOPHILS % (AUTO) 0.5 % (0.0-2.0); EOSINOPHILS % (AUTO) 0.2 % (0.0-3.0); HEMATOCRIT 37.1 % (42.0-52.0); HEMOGLOBIN 12.3 G/DL (14.2-18.0); LYMPHOCYTES % (AUTO) 23.6 % (20.0-45.0); MEAN CORPUSCULAR VOLUME 87 FL (80-99); NEUTROPHILS % (AUTO) 62.7 % (45.0-75.0); PLATELET COUNT 203 K/UL (150-450); RED BLOOD COUNT 4.25 M/UL (4.70-6.10); RED CELL DISTRIBUTION WIDTH 12.5 % (11.6-14.8); WHITE BLOOD COUNT 7.1 K/UL (4.8-10.8)
--- NOTE | 2020-01-02 07:34 | NUR ---
NURSE HAND-OFF REPORT: Important Events on Shift:[The plan for this patient is to make him more active in chair. Able to walk and stand but needs assistance.] Patient Status: [Stable] Diet: [CCHO Medium diet, thin liquid diet] Pending Orders: [] Pending Results/Labs:[] Pending MD notification:[] Latest Vital Signs: Temperature 97.9 , Pulse 67 , B/P 130 /50 , Respiratory Rate 17 , O2 SAT 96 , Room Air, O2 Flow Rate . Vital Sign Comment: [] EKG Rhythm: Sinus Bradycardia Rhythm change?: Y MD Notified?: N - MD Response: Latest Bay Fall Score: 45 Fall Risk: High Risk Safety Measures: Call light Within Reach, Bed Alarm Zone 1, Side Rails Side Rails x2, Bed position Low and Locked. Fall Precautions: Yellow Socks Yellow Gown Door Sign Patient Fall Education Report given to [JELENA Leahy].
--- NOTE | 2020-01-02 07:42 | NUR ---
NURSE NOTES: Received report from Daphney/RN. Pt is awake, in bed lying semi-fowlers. On room air, no distress or SOB noted. Able to make needs known. IV on right FA 20G SL, patent and clean. Bed in the lowest position and locked. Call light within reach, side rails up X3. Will continue plan of care.
[2020-01-02 08:00] VITALS: BP 169/72
[2020-01-02] MEDS: Doxycycline Monohydrate 100mg ORAL SCH ×2 (09:00→22:07)
[2020-01-02] MEDS: HydrALAZINE 50mg tab ORAL SCH ×2 (09:00→17:42)
[2020-01-02] MEDS: Metoprolol Tartrate 100mg tab ORAL SCH ×2 (09:01→22:24)
[2020-01-02] MEDS: Aspirin Baby 81mg ORAL SCH (09:01)
[2020-01-02] MEDS: Vitamin D 1000 IU Tab ORAL SCH (09:01)
[2020-01-02] MEDS: Ascorbic Acid 500mg tab ORAL SCH ×2 (09:01→17:42)
[2020-01-02] MEDS: Docusate 250mg cap ORAL SCH ×2 (09:01→17:43)
[2020-01-02] MEDS: Zinc Sulfate 220mg ORAL SCH (09:02)
[2020-01-02] MEDS: dexAMETHasone 10mg/ml Inj IV SCH (09:03)
[2020-01-02] MEDS: Enoxaparin 60mg Inj SUBQ SCH (09:04)
--- NOTE | 2020-01-02 09:53 | Pulmonology Progress Note ---
Subjective Constitutional: Reports: fatigue; Denies: fever Gastrointestinal/Abdominal: Denies: vomiting, diarrhea Psychiatric: Denies: depression Skin: Denies: rash Musculoskeletal: Denies: pain Allergies: Coded Allergies: No Known Allergies (Unverified , 07/30/18) Subjective remains afebrile, no leukocytosis on RA, pulse ox stable in isolation denies chest pain, SOB working with PT, gets stronger, less SOB with activity per PT as before Objective Last 24 Hour Vital Signs Date Time Temp Pulse Resp B/P (MAP) Pulse Ox O2 Delivery O2 Flow Rate FiO2 01/02/20 09:02 169/72 01/02/20 09:01 65 169/72 01/02/20 09:01 65 169/72 01/02/20 09:00 169/72 01/02/20 08:00 97.5 65 20 169/72 (104) 98 01/02/20 04:00 58 01/02/20 04:00 97.9 67 17 130/50 (76) 96 01/02/20 00:00 98.1 65 18 129/57 (81) 98 01/02/20 00:00 72 01/01/20 21:31 82 131/62 01/01/20 21:00 Room Air Room Air 01/01/20 20:00 98.1 82 21 131/62 (85) 96 01/01/20 20:00 70 01/01/20 17:49 155/67 01/01/20 16:00 71 01/01/20 16:00 98.8 70 18 155/67 (96) 98 01/01/20 14:29 98.4 01/01/20 12:00 73 01/01/20 12:00 98.4 76 18 149/65 (93) 79 01/01/20 11:36 149/65 Intake and Output 01/01/20 01/02/20 19:00 07:00 Intake Total 630 ml 240 ml Output Total 550 ml 400 ml Balance 80 ml -160 ml Intake Oral 630 ml 240 ml Output Urine Total 550 ml 400 ml # Voids 1 4 # Bowel Movements 4 Objective General Appearance: elderly male in NAD Lines, tubes and drains: peripheral HEENT: normocephalic, atraumatic, anicteric, mucous membranes moist Neck: supple Respiratory/Chest: no respiratory distress, no accessory muscle use Cardiovascular/Chest: normal rate, regular rhythm, tele with SR Abdomen: normal bowel sounds, non tender, soft Extremities: no calf tenderness, normal capillary refill, no edema Neurologic: alert, responsive, moves all extremities Musculoskeletal: atrophy - BLE Laboratory Tests 01/02/20 05:00: White Blood Count 7.1, Red Blood Count 4.25L, Hemoglobin 12.3L, Hematocrit 37.1L , Mean Corpuscular Volume 87, Mean Corpuscular Hemoglobin 29.0, Mean Corpuscular Hemoglobin Concent 33.3, Red Cell Distribution Width 12.5, Platelet Count 203, Mean Platelet Volume 7.9, Neutrophils (%) (Auto) 62.7, Lymphocytes (%) (Auto) 23.6, Monocytes (%) (Auto) 13.0H, Eosinophils (%) (Auto) 0.2, Basophils (%) (Auto) 0.5, Sodium Level 140, Potassium Level 3.9, Chloride Level 109H, Carbon Dioxide Level 18L, Anion Gap 13, Blood Urea Nitrogen 35H, Creatinine 1.5H, Estimat Glomerular Filtration Rate 45.0, Glucose Level 103, Calcium Level 8.8, Total Bilirubin 0.3, Aspartate Amino Transf (AST/SGOT) 25, Alanine Aminotransferase (ALT/SGPT) 46, Alkaline Phosphatase 51, Total Protein 6.2L, Albumin 2.6L, Globulin 3.6, Albumin/Globulin Ratio 0.7L 01/02/20 05:54: POC Whole Blood Glucose [Pending] Current Medications Medications (Trade) Dose Ordered Sig/Carol Route PRN Reason Start Time Stop Time Status Last Admin Dose Admin Acetaminophen (Tylenol) 650 mg Q4H PRN ORAL FEVER 12/27/19 19:45 01/26/20 19:44 Acetaminophen (Tylenol) 650 mg Q4H PRN ORAL PAIN 1-6 12/27/19 19:45 01/26/20 19:44 Al Hydroxide/Mg Hydroxide (Mylanta) 30 ml Q4H PRN ORAL GI UPSET 12/27/19 20:00 01/26/20 19:59 Albuterol Sulfate (Proventil MDI) 2 puff Q4H PRN INH Shortness of Breath 12/28/19 10:00 03/27/20 09:59 12/29/19 00:33 Amlodipine Besylate (Norvasc) 10 mg DAILY ORAL 12/28/19 09:00 01/27/20 08:59 01/02/20 09:01 Ascorbic Acid (Vitamin C) 500 mg TWICE A DAY ORAL 12/28/19 18:00 01/27/20 17:59 01/02/20 09:01 Aspirin (ASA) 81 mg DAILY ORAL 12/27/19 19:45 02/10/20 19:44 01/02/20 09:01 Atorvastatin Calcium (Lipitor) 20 mg BEDTIME ORAL 12/27/19 21:00 03/26/20 20:59 01/01/20 21:31 Benazepril HCl (Lotensin) 40 mg DAILY ORAL 12/28/19 09:00 01/27/20 08:59 01/02/20 09:02 Ceftriaxone Sodium 1 gm/ Dextrose 55 ml @ 110 mls/hr Q24H IVPB 12/27/19 22:00 01/03/20 21:59 01/01/20 21:33 Dexamethasone Sodium Phosphate (Decadron 10mg/ ml Inj) 6 mg DAILY IV 12/28/19 09:00 01/06/20 09:01 01/02/20 09:03 Dextrose (Dextrose 50%) 25 ml Q30M PRN IV Hypoglycemia 12/27/19 20:00 03/26/20 19:59 Dextrose (Dextrose 50%) 50 ml Q30M PRN IV Hypoglycemia 12/27/19 20:00 03/26/20 19:59 Docusate Sodium (Colace) 250 mg BID ORAL 12/28/19 09:00 01/27/20 08:59 01/02/20 09:01 Donepezil HCl (Aricept) 10 mg QHS ORAL 12/27/19 21:00 01/26/20 20:59 01/01/20 21:30 Doxycycline Monohydrate (Doxycycline Monohydrate) 100 mg EVERY 12 HOURS ORAL 12/28/19 21:00 01/04/20 20:59 01/02/20 09:00 Enoxaparin Sodium (Lovenox) 60 mg DAILY SUBQ 12/28/19 10:15 03/27/20 10:14 01/02/20 09:04 Gabapentin (Neurontin) 300 mg BID ORAL 12/27/19 20:00 01/26/20 19:59 01/02/20 09:00 Hydralazine HCl (Apresoline) 100 mg BID ORAL 12/27/19 20:00 03/26/20 19:59 01/02/20 09:00 Insulin Aspart (NovoLOG) BEFORE MEALS SUBQ 12/28/19 06:30 03/27/20 06:29 01/01/20 16:48 Metoprolol Tartrate (Lopressor) 100 mg EVERY 12 HOURS ORAL 01/01/20 09:00 03/31/20 08:59 01/02/20 09:01 Nitroglycerin (Ntg) 1 patch Q24H TDERMAL 12/28/19 10:15 01/27/20 10:14 01/01/20 11:36 Ondansetron HCl (Zofran) 4 mg Q4H PRN IVP Nausea & Vomiting 12/27/19 19:45 01/26/20 19:44 Pantoprazole (Protonix) 40 mg EVERY 12 HOURS ORAL 12/27/19 21:00 01/26/20 20:59 01/02/20 09:01 Sennosides (Senokot) 8.6 mg BIDPRN PRN ORAL Constipation 12/27/19 20:00 01/26/20 19:59 Sitagliptin Phosphate (Januvia) 50 mg ACBREAKFAST ORAL 12/28/19 06:30 01/27/20 06:29 01/02/20 06:31 Tamsulosin HCl (Flomax) 0.4 mg BEDTIME ORAL 12/27/19 21:00 01/26/20 20:59 01/01/20 21:32 Tramadol HCl (Ultram) 50 mg Q6H PRN ORAL PAIN 7-10 12/27/19 20:00 01/03/20 19:59 01/01/20 13:59 Vitamin D (Vitamin D) 2,000 intlu DAILY ORAL 12/28/19 09:00 01/27/20 08:59 01/02/20 09:01 Zinc Sulfate (Zinc Sulfate) 220 mg DAILY ORAL 12/29/19 09:00 03/28/20 08:59 01/02/20 09:02 Assessment/Plan Assessment/Plan ASSESSMENT Covid 19 PNA Mild hypoxemia Prior smoker Elevated troponin LACIE probably due to mild dehydration possibly on CKD ? HTN CAD DM, Hx of CVA BPH PLAN OF CARE tele isolation titrate to keep sat > 92%, Proventil MDI prn steroids D#6 ( 12/27-01/05); completed remdesivir x 5 days abx Doxy and Ceftriaxone a/c with Heparin CXR 12/30 -Mild airspace opacity within the lateral aspect of the right upper lung field, suspicious for infiltrate. Findingins similar to CXR 12/26 fup with inflammatory markers, CRP down to 4.7 zinc, vit C troponin minimally elevated, no c/o CP ECHO with pEF 60-65% ? troponin leak 2/2 renal failure -> consider cardio eval- per primary discretion a/PLT with ASA and BB , nitrites, statin IV hydration home meds resumed as per PMD BP an BS management BP management with multiple anti/HTN regimen: BB, CCB, MARTA, Hydralazine BS management with Januvia and SSI PT eval and Rx, fall precautions supportive care case discussed and evaluated by supervising physician Leonora Rich NP Jan 02, 2020 09:53 True Barrett MD Jan 02, 2020 12:11
[2020-01-02] MEDS: Nitroglycerin Patch 0.4mg TDERMAL SCH (10:11)
[2020-01-02 12:00] VITALS: BP 118/60
[2020-01-02 16:00] VITALS: BP 118/72
--- NOTE | 2020-01-02 16:12 | General Progress Note ---
Subjective Constitutional: Reports: weakness HEENT: Reports: no symptoms Cardiovascular: Reports: no symptoms Respiratory: Reports: cough Gastrointestinal/Abdominal: Reports: no symptoms Genitourinary: Reports: no symptoms Neurologic/Psychiatric: Reports: weakness Endocrine: Reports: no symptoms Hematologic/Lymphatic: Reports: no symptoms Allergies: Coded Allergies: No Known Allergies (Unverified , 07/30/18) Subjective weak no distress, difficulty walking Objective Last 24 Hour Vital Signs Date Time Temp Pulse Resp B/P (MAP) Pulse Ox O2 Delivery O2 Flow Rate FiO2 01/02/20 16:00 97.9 71 20 118/72 (87) 95 01/02/20 12:00 57 01/02/20 12:00 96.4 76 20 118/60 (79) 99 01/02/20 10:11 169/72 01/02/20 09:02 169/72 01/02/20 09:01 65 169/72 01/02/20 09:01 65 169/72 01/02/20 09:00 Room Air Room Air 01/02/20 09:00 169/72 01/02/20 08:00 97.5 65 20 169/72 (104) 98 01/02/20 08:00 71 01/02/20 04:00 58 01/02/20 04:00 97.9 67 17 130/50 (76) 96 01/02/20 00:00 98.1 65 18 129/57 (81) 98 01/02/20 00:00 72 01/01/20 21:31 82 131/62 01/01/20 21:00 Room Air Room Air 01/01/20 20:00 98.1 82 21 131/62 (85) 96 01/01/20 20:00 70 01/01/20 17:49 155/67 Intake and Output 01/01/20 01/02/20 19:00 07:00 Intake Total 630 ml 240 ml Output Total 550 ml 400 ml Balance 80 ml -160 ml Intake Oral 630 ml 240 ml Output Urine Total 550 ml 400 ml # Voids 1 4 # Bowel Movements 4 Laboratory Tests 01/02/20 05:00: White Blood Count 7.1, Red Blood Count 4.25L, Hemoglobin 12.3L, Hematocrit 37.1L , Mean Corpuscular Volume 87, Mean Corpuscular Hemoglobin 29.0, Mean Corpuscular Hemoglobin Concent 33.3, Red Cell Distribution Width 12.5, Platelet Count 203, Mean Platelet Volume 7.9, Neutrophils (%) (Auto) 62.7, Lymphocytes (%) (Auto) 23.6, Monocytes (%) (Auto) 13.0H, Eosinophils (%) (Auto) 0.2, Basophils (%) (Auto) 0.5, Sodium Level 140, Potassium Level 3.9, Chloride Level 109H, Carbon Dioxide Level 18L, Anion Gap 13, Blood Urea Nitrogen 35H, Creatinine 1.5H, Estimat Glomerular Filtration Rate 45.0, Glucose Level 103, Calcium Level 8.8, Total Bilirubin 0.3, Aspartate Amino Transf (AST/SGOT) 25, Alanine Aminot ransferase (ALT/SGPT) 46, Alkaline Phosphatase 51, Total Protein 6.2L, Albumin 2.6L, Globulin 3.6, Albumin/Globulin Ratio 0.7L 01/02/20 05:54: POC Whole Blood Glucose [Pending] 01/02/20 11:07: POC Whole Blood Glucose 161H Height (Feet): 5 Height (Inches): 5.00 Weight (Pounds): 180 General Appearance: no apparent distress, alert EENT: normal ENT inspection Neck: normal alignment Cardiovascular: regular rhythm Respiratory/Chest: lungs clear Abdomen: non tender, soft Edema: no edema noted Arm (L), no edema noted Arm (R), no edema noted Leg (L), no edema noted Leg (R), no edema noted Pedal (L), no edema noted Pedal (R), no edema noted 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 Assessment/Plan Problem List: (1) Dehydration ICD Codes: E86.0 - Dehydration SNOMED: 09295291 (2) Gait abnormality ICD Codes: R26.9 - Unspecified abnormalities of gait and mobility SNOMED: 76686000 (3) CVA, old, cognitive deficits ICD Codes: I69.319 - Unspecified symptoms and signs involving cognitive functions following cerebral infarction SNOMED: 26722512, 086367125, 242849795, 908188487 (4) Troponin level elevated ICD Codes: R77.8 - Other specified abnormalities of plasma proteins SNOMED: 006984904, 704424713, 460812843 (5) CAD (coronary artery disease) ICD Codes: I25.10 - Atherosclerotic heart disease of [place] coronary artery without angina pectoris SNOMED: 28548974 (6) Diabetes ICD Codes: E11.9 - Type 2 diabetes mellitus without complications SNOMED: 10175659 (7) Pneumonia ICD Codes: J18.9 - Pneumonia, unspecified organism SNOMED: 792312246 (8) Chronic pain syndrome ICD Codes: G89.4 - Chronic painsyndrome SNOMED: 106973568 (9) Gastritis ICD Codes: K29.70 - Gastritis, unspecified, without bleeding SNOMED: 4880751 (10) COVID-19 ICD Codes: U07.1 - COVID-19 SNOMED: 753797053 Assessment/Plan: dexamethasone, remdesivir, , beta blockade--dose adjusted by dr ramos after bradycardia, asa, isosorbide, PT Nishant Acevedo MD Jan 02, 2020 16:11
--- NOTE | 2020-01-02 19:37 | NUR ---
NURSE HAND-OFF REPORT: Important Events on Shift: Patient Status: Stable Diet: Consistent carb Pending Orders: Pending Results/Labs: Pending MD notification: Latest Vital Signs: Temperature 97.9 , Pulse 73 , B/P 118 /72 , Respiratory Rate 20 , O2 SAT 95 , Room Air, O2 Flow Rate . Vital Sign Comment: Stable EKG Rhythm: Sinus Rhythm Rhythm change?: N MD Notified?: N - MD Response: Latest [place] Fall Score: 45 Fall Risk: High Risk Safety Measures: Call light Within Reach, Bed Alarm Zone 1, Side Rails Side Rails x2, Bed position Low and Locked. Fall Precautions: Yellow Socks Yellow Gown Door Sign Patient Fall Education Report given to Angely/RN.
--- NOTE | 2020-01-02 19:38 | NUR ---
NURSE NOTES: Received pt AAOX3, danish speaking; in no acute distress; covid + on contact and droplet precautions; call light within reach; side rails x 3; bed in low position and locked; will continue to monitor.
[2020-01-02 20:00] VITALS: BP 107/56
[2020-01-02] MEDS: Atorvastatin 20mg tab ORAL SCH (22:07)
[2020-01-02] MEDS: Tamsulosin 0.4mg cap ORAL SCH (22:07)
[2020-01-02] MEDS: cefTRIAXone 1gm/D5W 55ml IVPB SCH ×2 (22:08)
[2020-01-02] MEDS: traMADol 50mg tab ORAL PRN (22:23)
[2020-01-02] MEDS: Donepezil 10mg tab ORAL SCH (22:41)
[2020-01-03] VITALS: BP 143/65
--- NOTE | 2020-01-03 00:34 | Cardiology Progress Note ---
Subjective DATE OF SERVICE: Jan 02, 2020 More alert. No SOB. Appetite slightly better; he remains on supplemental IVF hydration. Monitor: Sinus bradycardia much improved with decreased beta veronika dosing. Objective Last 24 Hour Vital Signs Date Time Temp Pulse Resp B/P (MAP) Pulse Ox O2 Delivery O2 Flow Rate FiO2 01/02/20 22:24 70 140/75 01/02/20 20:00 98.1 73 20 107/56 (73) 93 01/02/20 17:42 118/72 01/02/20 16:00 97.9 71 20 118/72 (87) 95 01/02/20 16:00 73 01/02/20 12:00 57 01/02/20 12:00 96.4 76 20 118/60 (79) 99 01/02/20 10:11 169/72 01/02/20 09:02 169/72 01/02/20 09:01 65 169/72 01/02/20 09:01 65 169/72 01/02/20 09:00 Room Air Room Air 01/02/20 09:00 169/72 01/02/20 08:00 97.5 65 20 169/72 (104) 98 01/02/20 08:00 71 01/02/20 04:00 58 01/02/20 04:00 97.9 67 17 130/50 (76) 96 ROS: no change from my initial evaluation. RHYTHM: NSR, SB LUNGS: lungs clear bilaterally, bilateral rhonchi - few CARDIAC: normal rate, regular rhythm, normal S1 and S2, gallop/S4 ABDOMEN: normal bowel sounds, non tender, soft, no organomegaly EXTREMITIES: normal range of motion, no calf tenderness, No edema Laboratory Tests Test 01/02/20 05:00 01/02/20 05:54 01/02/20 11:07 01/02/20 16:13 White Blood Count 7.1 K/UL (4.8-10.8) Red Blood Count 4.25 M/UL (4.70-6.10) L Hemoglobin 12.3 G/DL (14.2-18.0) L Hematocrit 37.1 % (42.0-52.0) L Mean Corpuscular Volume 87 FL (80-99) Mean Corpuscular Hemoglobin 29.0 PG (27.0-31.0) Mean Corpuscular Hemoglobin Concent 33.3 G/DL (32.0-36.0) Red Cell Distribution Width 12.5 % (11.6-14.8) Platelet Count 203 K/UL (150-450) Mean Platelet Volume 7.9 FL (6.5-10.1) Neutrophils (%) (Auto) 62.7 % (45.0-75.0) Lymphocytes (%) (Auto) 23.6 % (20.0-45.0) Monocytes (%) (Auto) 13.0 % (1.0-10.0) H Eosinophils (%) (Auto) 0.2 % (0.0-3.0) Basophils (%) (Auto) 0.5 % (0.0-2.0) Sodium Level 140 MMOL/L (136-145) Potassium Level 3.9 MMOL/L (3.5-5.1) Chloride Level 109 MMOL/L (98-107) H Carbon Dioxide Level 18 MMOL/L (21-32) L Anion Gap 13 mmol/L (5-15) Blood Urea Nitrogen 35 mg/dL (7-18) H Creatinine 1.5 MG/DL (0.55-1.30) H Estimat Glomerular Filtration Rate 45.0 mL/min (>60) Glucose Level 103 MG/DL (74-106) Calcium Level 8.8 MG/DL (8.5-10.1) Total Bilirubin 0.3 MG/DL (0.2-1.0) Aspartate Amino Transf (AST/SGOT) 25 U/L (15-37) Alanine Aminotransferase (ALT/SGPT) 46 U/L (12-78) Alkaline Phosphatase 51 U/L (46-116) Total Protein 6.2 G/DL (6.4-8.2) L Albumin 2.6 G/DL (3.4-5.0) L Globulin 3.6 g/dL Albumin/Globulin Ratio 0.7 (1.0-2.7) L POC Whole Blood Glucose Pending 161 MG/DL (74-106) H 178 MG/DL (74-106) H Assessment/Plan Assessment/Plan COVID 19 PNA Dehydration/hypovolemia Acute myocardial ischemia clinically resolved CAD/Hx TX/Hx CABG Hypertension Sinus bradycardia on high dose beta veronika NIDDM with neuropathy Hypertension/HHD Antivirals/steroids/full anticoagulation Maintain aspirin and statin rx Titrate BBlocker dosing based on heart rates. Adjust IVF as oral intake improves. Titrate antiHTN meds based on clinical parameters. Yannick Porras MD Jan 03, 2020 00:34
[2020-01-03 04:00] VITALS: BP 123/64
[2020-01-03] MEDS: sitaGLIPtin 50mg tab ORAL SCH (06:24)
[2020-01-03] MEDS: NovoLOG Insulin Flexpen SUBQ SCH ×3 (06:25→17:34)
--- NOTE | 2020-01-03 07:20 | NUR ---
NURSE HAND-OFF REPORT: Important Events on Shift: Tolerated due meds well; bed bath given; monitor condom cath for placement; accucheck within range no insulin coverage given Patient Status: AOX3; stable; Serbian and Faroese speaking Diet: CCHO with thin liquids; give meds 1 by 1 Pending Orders: n/a Pending Results/Labs: n/a Pending MD notification: n/a Latest Vital Signs: Temperature 97.3 , Pulse 59 , B/P 123 /64 , Respiratory Rate 20 , O2 SAT 95 , Room Air, O2 Flow Rate . Vital Sign Comment: stable EKG Rhythm: Sinus Bradycardia Rhythm change?: N MD Notified?: N - MD Response: Latest [place] Fall Score: 45 Fall Risk: High Risk Safety Measures: Call light Within Reach, Bed Alarm Zone 1, Side Rails Side Rails x2, Bed position Low and Locked. Fall Precautions: Yellow Socks Yellow Gown Door Sign Patient Fall Education Report given to JELENA Lebron[].
[2020-01-03 08:00] VITALS: BP 123/56
--- NOTE | 2020-01-03 08:00 | NUR ---
NURSE NOTES: Report received from RN. Pt is AOx4, on room air with no signs of resp distress, sob or pain. Pt is on director of cardiac rehabilitation with SR noted. pt is afebrile. IV is c/d/i. Pt is ambulatory with assistance. Pt is incontinent and has condom cath on. Bed low and locked, siderails up x2, call light placed within reach and instructed to call nurse for assistance. Will continue with plan of care.
--- NOTE | 2020-01-03 08:36 | NUR ---
CASE MANAGEMENT:REVIEW 01/03/20 SI: COVID PNEUMONIA 97.3 65 20 123/64 95% ON RA IS: IV DECADRON Q24 IV ROCEPHIN Q24 DOXYCYCLINE PO Q12 ZINC PO QD VIT C PO QD LOPRESSOR PO Q12 LOTENSIN PO QD NORVASC PO QD ARICEPT : TELEMETRY STATUS DCP: FROM HOME
[2020-01-03] MEDS: Metoprolol Tartrate 100mg tab ORAL SCH ×2 (09:00→20:53)
[2020-01-03] MEDS: HydrALAZINE 50mg tab ORAL SCH ×2 (09:00→17:07)
[2020-01-03] MEDS: Docusate 250mg cap ORAL SCH ×2 (09:27→17:08)
[2020-01-03] MEDS: Doxycycline Monohydrate 100mg ORAL SCH (09:27)
[2020-01-03] MEDS: dexAMETHasone 10mg/ml Inj IV SCH (09:27)
[2020-01-03] MEDS: Nitroglycerin Patch 0.4mg TDERMAL SCH (09:27)
[2020-01-03] MEDS: Vitamin D 1000 IU Tab ORAL SCH (09:27)
[2020-01-03] MEDS: Zinc Sulfate 220mg ORAL SCH (09:27)
[2020-01-03] MEDS: Ascorbic Acid 500mg tab ORAL SCH ×2 (09:27→17:08)
[2020-01-03] MEDS: Aspirin Baby 81mg ORAL SCH (09:27)
[2020-01-03] MEDS: Enoxaparin 60mg Inj SUBQ SCH (09:28)
--- NOTE | 2020-01-03 10:43 | Pulmonology Progress Note ---
Subjective Constitutional: Reports: fatigue; Denies: fever Gastrointestinal/Abdominal: Denies: vomiting, diarrhea Psychiatric: Denies: depression Skin: Denies: rash Musculoskeletal: Denies: pain Allergies: Coded Allergies: No Known Allergies (Unverified , 07/30/18) Subjective remains afebrile, no leukocytosis on RA, pulse ox stable in isolation denies chest pain, SOB HR improved, cardio follows Objective Last 24 Hour Vital Signs Date Time Temp Pulse Resp B/P (MAP) Pulse Ox O2 Delivery O2 Flow Rate FiO2 01/03/20 09:27 123/56 01/03/20 09:00 59 123/56 01/03/20 09:00 123/56 01/03/20 09:00 123/56 01/03/20 09:00 76 123/56 01/03/20 08:00 97.7 76 20 123/56 (78) 97 01/03/20 04:00 59 01/03/20 04:00 97.3 65 20 123/64 (83) 95 01/03/20 00:00 63 01/03/20 00:00 97.7 60 20 143/65 (91) 95 01/02/20 22:24 70 140/75 01/02/20 21:00 Room Air 01/02/20 20:00 98.1 73 20 107/56 (73) 93 01/02/20 17:42 118/72 01/02/20 16:00 97.9 71 20 118/72 (87) 95 01/02/20 16:00 73 01/02/20 12:00 57 01/02/20 12:00 96.4 76 20 118/60 (79) 99 Intake and Output 01/02/20 01/03/20 18:59 06:59 Intake Total 440 ml 240 ml Balance 440 ml 240 ml Intake Oral 440 ml 240 ml # Voids 4 4 # Bowel Movements 2 Objective General Appearance: elderly male in NAD Lines, tubes and drains: peripheral HEENT: normocephalic, atraumatic, anicteric, mucous membranes moist Neck: supple Respiratory/Chest: no respiratory distress, no accessory muscle use Cardiovascular/Chest: normal rate, regular rhythm, tele with SR Abdomen: normal bowel sounds, non tender, soft Extremities: no calf tenderness, normal capillary refill, no edema Neurologic: alert, responsive, moves all extremities Musculoskeletal: atrophy - BLE Laboratory Tests 01/02/20 11:07: POC Whole Blood Glucose 161H 01/02/20 16:13: POC Whole Blood Glucose 178H 01/03/20 06:16: POC Whole Blood Glucose 101 Current Medications Medications (Trade) Dose Ordered Sig/Carol Route PRN Reason Start Time Stop Time Status Last Admin Dose Admin Acetaminophen (Tylenol) 650 mg Q4H PRN ORAL PAIN 1-6 12/27/19 19:45 01/26/20 19:44 01/02/20 10:11 Acetaminophen (Tylenol) 650 mg Q4H PRN ORAL FEVER 12/27/19 19:45 01/26/20 19:44 Al Hydroxide/Mg Hydroxide (Mylanta) 30 ml Q4H PRN ORAL GI UPSET 12/27/19 20:00 01/26/20 19:59 Albuterol Sulfate (Proventil MDI) 2 puff Q4H PRN INH Shortness of Breath 12/28/19 10:00 03/27/20 09:59 12/29/19 00:33 Amlodipine Besylate (Norvasc) 10 mg DAILY ORAL 12/28/19 09:00 01/27/20 08:59 01/02/20 09:01 Ascorbic Acid (Vitamin C) 500 mg TWICE A DAY ORAL 12/28/19 18:00 01/27/20 17:59 01/03/20 09:27 Aspirin (ASA) 81 mg DAILY ORAL 12/27/19 19:45 02/10/20 19:44 01/03/20 09:27 Atorvastatin Calcium (Lipitor) 20 mg BEDTIME ORAL 12/27/19 21:00 03/26/20 20:59 01/02/20 22:07 Benazepril HCl (Lotensin) 40 mg DAILY ORAL 12/28/19 09:00 01/27/20 08:59 01/02/20 09:02 Ceftriaxone Sodium 1 gm/ Dextrose 55 ml @ 110 mls/hr Q24H IVPB 12/27/19 22:00 01/03/20 21:59 01/02/20 22:08 Dexamethasone Sodium Phosphate (Decadron 10mg/ ml Inj) 6 mg DAILY IV 12/28/19 09:00 01/06/20 09:01 01/03/20 09:27 Dextrose (Dextrose 50%) 25 ml Q30M PRN IV Hypoglycemia 12/27/19 20:00 03/26/20 19:59 Dextrose (Dextrose 50%) 50 ml Q30M PRN IV Hypoglycemia 12/27/19 20:00 03/26/20 19:59 Docusate Sodium (Colace) 250 mg BID ORAL 12/28/19 09:00 01/27/20 08:59 01/03/20 09:27 Donepezil HCl (Aricept) 10 mg QHS ORAL 12/27/19 21:00 01/26/20 20:59 01/02/20 22:41 Doxycycline Monohydrate (Doxycycline Monohydrate) 100 mg EVERY 12 HOURS ORAL 12/28/19 21:00 01/04/20 20:59 01/03/20 09:27 Enoxaparin Sodium (Lovenox) 60 mg DAILY SUBQ 12/28/19 10:15 03/27/20 10:14 01/03/20 09:28 Gabapentin (Neurontin) 300 mg BID ORAL 12/27/19 20:00 01/26/20 19:59 01/03/20 09:27 Hydralazine HCl (Apresoline) 100 mg BID ORAL 12/27/19 20:00 03/26/20 19:59 01/02/20 17:42 Insulin Aspart (NovoLOG) BEFORE MEALS SUBQ 12/28/19 06:30 03/27/20 06:29 01/02/20 16:16 Metoprolol Tartrate (Lopressor) 100 mg EVERY 12 HOURS ORAL 01/01/20 09:00 03/31/20 08:59 01/02/20 22:24 Nitroglycerin (Ntg) 1 patch Q24H TDERMAL 12/28/19 10:15 01/27/20 10:14 01/03/20 09:27 Ondansetron HCl (Zofran) 4 mg Q4H PRN IVP Nausea & Vomiting 12/27/19 19:45 01/26/20 19:44 Pantoprazole (Protonix) 40 mg EVERY 12 HOURS ORAL 12/27/19 21:00 01/26/20 20:59 01/03/20 09:27 Sennosides (Senokot) 8.6 mg BIDPRN PRN ORAL Constipation 12/27/19 20:00 01/26/20 19:59 Sitagliptin Phosphate (Januvia) 50 mg ACBREAKFAST ORAL 12/28/19 06:30 01/27/20 06:29 01/03/20 06:24 Tamsulosin HCl (Flomax) 0.4 mg BEDTIME ORAL 12/27/19 21:00 01/26/20 20:59 01/02/20 22:07 Tramadol HCl (Ultram) 50 mg Q6H PRN ORAL PAIN 7-10 12/27/19 20:00 01/03/20 19:59 01/02/20 22:23 Vitamin D (Vitamin D) 2,000 intlu DAILY ORAL 12/28/19 09:00 01/27/20 08:59 01/03/20 09:27 Zinc Sulfate (Zinc Sulfate) 220 mg DAILY ORAL 12/29/19 09:00 03/28/20 08:59 01/03/20 09:27 Assessment/Plan Assessment/Plan ASSESSMENT Covid 19 PNA Mild hypoxemia Prior smoker Elevated troponin /acute myocardial ischemia LACIE probably due to mild dehydration possibly on CKD ? HTN CAD DM, Hx of CVA BPH SB -resolved PLAN OF CARE tele isolation titrate to keep sat > 92%, Proventil MDI prn steroids D#7 ( 12/27-01/05); completed remdesivir x 5 days abx Doxy and Ceftriaxone ,completing 01/03 a/c with Heparin CXR 12/30 -Mild airspace opacity within the lateral aspect of the right upper lung field, suspicious for infiltrate. Findings similar to CXR 12/26 fup with inflammatory markers, CRP down to 4.7 zinc, vit C in AM get CXR and CRP troponin minimally elevated, no c/o CP ECHO with pEF 60-65% ? troponin leak 2/2 renal failure -> consider cardio eval- per primary discretion a/PLT with ASA and BB , nitrites, statin IV hydration home meds resumed as per PMD BP an BS management BP management with multiple anti/HTN regimen: BB, CCB, MARTA, Hydralazine BS management with Januvia and SSI PT eval and Rx, fall precautions supportive care case discussed and evaluated by supervising physician Leonora Rich NP Jan 03, 2020 10:43
[2020-01-03 12:00] VITALS: BP 125/69
--- NOTE | 2020-01-03 15:35 | Infectious Diseases Prog Note ---
Assessment/Plan Assessment/Plan ASSESSMENT AND PLAN: 1. covid-19 infection with pna, ? CAP, hypoxia - dexamethasone day # 8/ - s/p remdesivir - s/p ceftriaxone and doxycycline - clinically stable, saturations stable - monitor labs and chest x-ray 2. COVID-19 isolation. Continue supportive care and isolation, proper PPEs worn. 3. Diabetes. 4. Coronary heart disease. 5. Hypertension. 6. Blood sugar and blood pressure treatment per primary care team. 7. CVA. 8. Elevated creatinine. 9. Questionable hyperlipidemia. 10. Hypertensive heart disease. 11. Coronary artery disease. 12. Gastritis and GI bleed. 13. Dehydration, IV fluids. 14. Weakness. 15. Hypoxia. 16. Sciatica. 17. Degenerative disc disease. 18. No known drug allergies. 19. Social history is negative. 20. Family history is noncontributory. 21. MAR is noted. 22. Communicated case with Dr. Machado. 23. Continue treatment per primary consultants. Subjective Constitutional: Reports: fatigue; Denies: fever HEENT: Denies: congestion Respiratory: Denies: shortness of breath Cardiovascular: Denies: chest pain Gastrointestinal/Abdominal: Denies: nausea, vomiting, diarrhea Genitourinary: Reports: other - no alicia Neurologic: Denies: headache Psychiatric: Denies: depression Skin: Denies: rash Hematologic: Denies: bleeding Musculoskeletal: Denies: pain Allergies: Coded Allergies: No Known Allergies (Unverified , 07/30/18) Objective Last 24 Hour Vital Signs Date Time Temp Pulse Resp B/P (MAP) Pulse Ox O2 Delivery O2 Flow Rate FiO2 01/03/20 12:00 61 01/03/20 12:00 97.7 77 20 125/69 (87) 96 01/03/20 09:27 123/56 01/03/20 09:00 Room Air 01/03/20 09:00 59 123/56 01/03/20 09:00 123/56 01/03/20 09:00 123/56 01/03/20 09:00 76 123/56 01/03/20 08:00 97.7 76 20 123/56 (78) 97 01/03/20 08:00 66 01/03/20 04:00 59 01/03/20 04:00 97.3 65 20 123/64 (83) 95 01/03/20 00:00 63 01/03/20 00:00 97.7 60 20 143/65 (91) 95 01/02/20 22:24 70 140/75 01/02/20 21:00 Room Air 01/02/20 20:00 98.1 73 20 107/56 (73) 93 01/02/20 17:42 118/72 01/02/20 16:00 97.9 71 20 118/72 (87) 95 01/02/20 16:00 73 Height (Feet): 5 Height (Inches): 5.00 Weight (Pounds): 180 General Appearance: no acute distress HEENT: normocephalic, atraumatic, anicteric Respiratory/Chest: lungs clear, normal breath sounds, no respiratory distress, no accessory muscle use Cardiovascular: normal rate, regular rhythm, no gallop/murmur, no JVD Abdomen: normal bowel sounds, soft, non tender, no organomegaly, non distended Genitourinary: other - no alicia Extremities: no cyanosis Skin: no rash Neurologic/Psychiatric: mobile tester II-XII grossly normal, alert, responsive Lymphatic: no neck adenopathy Musculoskeletal: no effusion Chest x-ray - 12/27/19 - Procedure: XRAY Chest 1v EXAM: XR Chest, 1 View CLINICAL HISTORY: COUGH TECHNIQUE: Frontal view of the chest. COMPARISON: Chest x-ray dated 05/28/2017 FINDINGS: Lungs: Scattered airspace opacities within the central and upper lungs which may represent pulmonary vascular congestion versus an infectious process. Pleural space: Unremarkable. Heart: Unremarkable. Mediastinum: Unremarkable. Bones/joints: Evidence of prior median sternotomy. IMPRESSION: Scattered airspace opacities within the central and upper lungs which may represent pulmonary vascular congestion versus an infectious process. Chest x-ray - 12/31/19 - Procedure: XRAY Chest 1v EXAM: XR Chest, 1 View CLINICAL HISTORY: INFECT TECHNIQUE: Frontal view of the chest. COMPARISON: Chest radiograph December 27, 2019 FINDINGS/IMPRESSION: Mild airspace opacity within the lateral aspect of the right upper lung field, suspicious for infiltrate. Follow-up chest radiograph recommended. Note, this is similar in appearance to the prior study from December 27, 2019. No pleural effusion or pneumothorax. Cardiomegaly. Calcified aorta. Median sternotomy wires. Post CABG changes. Microbiology Date/Time Source Procedure Growth Status 12/27/19 16:35 Nasopharynx SARS-CoV-2 RdRp Gene Assay - Final Complete Labs Test 01/01/20 05:35 01/01/20 06:00 01/02/20 05:00 01/02/20 05:54 POC Whole Blood Glucose 92 MG/DL (74-106) White Blood Count 6.4 K/UL (4.8-10.8) 7.1 K/UL (4.8-10.8) Red Blood Count 4.37 M/UL (4.70-6.10) 4.25 M/UL (4.70-6.10) Hemoglobin 12.3 G/DL (14.2-18.0) 12.3 G/DL (14.2-18.0) Hematocrit 38.7 % (42.0-52.0) 37.1 % (42.0-52.0) Mean Corpuscular Volume 89 FL (80-99) 87 FL (80-99) Mean Corpuscular Hemoglobin 28.2 PG (27.0-31.0) 29.0 PG (27.0-31.0) Mean Corpuscular Hemoglobin Concent 31.9 G/DL (32.0-36.0) 33.3 G/DL (32.0-36.0) Red Cell Distribution Width 12.9 % (11.6-14.8) 12.5 % (11.6-14.8) Platelet Count 169 K/UL (150-450) 203 K/UL (150-450) Mean Platelet Volume 7.7 FL (6.5-10.1) 7.9 FL (6.5-10.1) Neutrophils (%) (Auto) 64.0 % (45.0-75.0) 62.7 % (45.0-75.0) Lymphocytes (%) (Auto) 22.2 % (20.0-45.0) 23.6 % (20.0-45.0) Monocytes (%) (Auto) 12.6 % (1.0-10.0) 13.0 % (1.0-10.0) Eosinophils (%) (Auto) 0.2 % (0.0-3.0) 0.2 % (0.0-3.0) Basophils (%) (Auto) 0.9 % (0.0-2.0) 0.5 % (0.0-2.0) Sodium Level 140 MMOL/L (136-145) 140 MMOL/L (136-145) Potassium Level 3.7 MMOL/L (3.5-5.1) 3.9 MMOL/L (3.5-5.1) Chloride Level 109 MMOL/L (98-107) 109 MMOL/L (98-107) Carbon Dioxide Level 19 MMOL/L (21-32) 18 MMOL/L (21-32) Anion Gap 12 mmol/L (5-15) 13 mmol/L (5-15) Blood Urea Nitrogen 34 mg/dL (7-18) 35 mg/dL (7-18) Creatinine 1.6 MG/DL (0.55-1.30) 1.5 MG/DL (0.55-1.30) Estimat Glomerular Filtration Rate 41.8 mL/min (>60) 45.0 mL/min (>60) Glucose Level 88 MG/DL (74-106) 103 MG/DL (74-106) Calcium Level 8.5 MG/DL (8.5-10.1) 8.8 MG/DL (8.5-10.1) Total Bilirubin 0.3 MG/DL (0.2-1.0) Aspartate Amino Transf (AST/SGOT) 25 U/L (15-37) Alanine Aminotransferase (ALT/SGPT) 46 U/L (12-78) Alkaline Phosphatase 51 U/L (46-116) Total Protein 6.2 G/DL (6.4-8.2) Albumin 2.6 G/DL (3.4-5.0) Globulin 3.6 g/dL Albumin/Globulin Ratio 0.7 (1.0-2.7) Test 01/02/20 11:07 01/02/20 16:13 01/03/20 06:16 01/03/20 11:59 POC Whole Blood Glucose 161 MG/DL (74-106) 178 MG/DL (74-106) 101 MG/DL (74-106) 193 MG/DL (74-106) Laboratory Tests Test 01/02/20 16:13 01/03/20 06:16 01/03/20 11:59 POC Whole Blood Glucose 178 MG/DL (74-106) H 101 MG/DL (74-106) 193 MG/DL (74-106) H Current Medications Medications (Trade) Dose Ordered Sig/Carol Route PRN Reason Start Time Stop Time Status Last Admin Dose Admin Acetaminophen (Tylenol) 650 mg Q4H PRN ORAL PAIN 1-6 12/27/19 19:45 01/26/20 19:44 01/02/20 10:11 Acetaminophen (Tylenol) 650 mg Q4H PRN ORAL FEVER 12/27/19 19:45 01/26/20 19:44 Al Hydroxide/Mg Hydroxide (Mylanta) 30 ml Q4H PRN ORAL GI UPSET 12/27/19 20:00 01/26/20 19:59 Albuterol Sulfate (Proventil MDI) 2 puff Q4H PRN INH Shortness of Breath 12/28/19 10:00 03/27/20 09:59 12/29/19 00:33 Amlodipine Besylate (Norvasc) 10 mg DAILY ORAL 12/28/19 09:00 01/27/20 08:59 01/02/20 09:01 Ascorbic Acid (Vitamin C) 500 mg TWICE A DAY ORAL 12/28/19 18:00 01/27/20 17:59 01/03/20 09:27 Aspirin (ASA) 81 mg DAILY ORAL 12/27/19 19:45 02/10/20 19:44 01/03/20 09:27 Atorvastatin Calcium (Lipitor) 20 mg BEDTIME ORAL 12/27/19 21:00 03/26/20 20:59 01/02/20 22:07 Benazepril HCl (Lotensin) 40 mg DAILY ORAL 12/28/19 09:00 01/27/20 08:59 01/02/20 09:02 Ceftriaxone Sodium 1 gm/ Dextrose 55 ml @ 110 mls/hr Q24H IVPB 12/27/19 22:00 01/03/20 21:59 01/02/20 22:08 Dexamethasone Sodium Phosphate (Decadron 10mg/ ml Inj) 6 mg DAILY IV 12/28/19 09:00 01/06/20 09:01 01/03/20 09:27 Dextrose (Dextrose 50%) 25 ml Q30M PRN IV Hypoglycemia 12/27/19 20:00 2/9/21 19:59 Dextrose (Dextrose 50%) 50 ml Q30M PRN IV Hypoglycemia 12/27/19 20:00 03/26/20 19:59 Docusate Sodium (Colace) 250 mg BID ORAL 12/28/19 09:00 01/27/20 08:59 01/03/20 09:27 Donepezil HCl (Aricept) 10 mg QHS ORAL 12/27/19 21:00 01/26/20 20:59 01/02/20 22:41 Doxycycline Monohydrate (Doxycycline Monohydrate) 100 mg EVERY 12 HOURS ORAL 12/28/19 21:00 01/04/20 20:59 01/03/20 09:27 Enoxaparin Sodium (Lovenox) 60 mg DAILY SUBQ 12/28/19 10:15 03/27/20 10:14 01/03/20 09:28 Gabapentin (Neurontin) 300 mg BID ORAL 12/27/19 20:00 01/26/20 19:59 01/03/20 09:27 Hydralazine HCl (Apresoline) 100 mg BID ORAL 12/27/19 20:00 03/26/20 19:59 01/02/20 17:42 Insulin Aspart (NovoLOG) BEFORE MEALS SUBQ 12/28/19 06:30 03/27/20 06:29 01/03/20 12:02 Metoprolol Tartrate (Lopressor) 100 mg EVERY 12 HOURS ORAL 01/01/20 09:00 03/31/20 08:59 01/02/20 22:24 Nitroglycerin (Ntg) 1 patch Q24H TDERMAL 12/28/19 10:15 01/27/20 10:14 01/03/20 09:27 Ondansetron HCl (Zofran) 4 mg Q4H PRN IVP Nausea & Vomiting 12/27/19 19:45 01/26/20 19:44 Pantoprazole (Protonix) 40 mg EVERY 12 HOURS ORAL 12/27/19 21:00 01/26/20 20:59 01/03/20 09:27 Sennosides (Senokot) 8.6 mg BIDPRN PRN ORAL Constipation 12/27/19 20:00 01/26/20 19:59 Sitagliptin Phosphate (Januvia) 50 mg ACBREAKFAST ORAL 12/28/19 06:30 01/27/20 06:29 01/03/20 06:24 Tamsulosin HCl (Flomax) 0.4 mg BEDTIME ORAL 12/27/19 21:00 01/26/20 20:59 01/02/20 22:07 Tramadol HCl (Ultram) 50 mg Q6H PRN ORAL PAIN 7-10 12/27/19 20:00 01/03/20 19:59 01/02/20 22:23 Vitamin D (Vitamin D) 2,000 intlu DAILY ORAL 12/28/19 09:00 01/27/20 08:59 01/03/20 09:27 Zinc Sulfate (Zinc Sulfate) 220 mg DAILY ORAL 12/29/19 09:00 03/28/20 08:59 01/03/20 09:27 Gracia Bryant MD Jan 03, 2020 15:35
[2020-01-03 16:00] VITALS: BP 117/25
--- NOTE | 2020-01-03 19:20 | NUR ---
NURSE NOTES: Pt received from JELENA Lebron alert and oriented x4, primarily Yakut-speaking with no acute s/s of distress noted. On room air. wire harness assembler on - Sinus Rhythm. Bed in lowest position, bed alarm on. Call light and belongings within reach.
[2020-01-03 20:00] VITALS: BP 130/59
--- NOTE | 2020-01-03 20:30 | General Progress Note ---
Subjective Constitutional: Reports: weakness HEENT: Reports: no symptoms Cardiovascular: Reports: no symptoms Respiratory: Reports: no symptoms Gastrointestinal/Abdominal: Reports: poor appetite Genitourinary: Reports: no symptoms Endocrine: Reports: no symptoms Allergies: Coded Allergies: No Known Allergies (Unverified , 07/30/18) Subjective weak no distress, difficulty walking Objective Last 24 Hour Vital Signs Date Time Temp Pulse Resp B/P (MAP) Pulse Ox O2 Delivery O2 Flow Rate FiO2 01/03/20 20:00 98.8 80 18 130/59 (82) 96 01/03/20 17:07 117/25 01/03/20 16:00 97.5 83 20 117/25 (55) 97 01/03/20 16:00 88 01/03/20 12:00 61 01/03/20 12:00 97.7 77 20 125/69 (87) 96 01/03/20 09:27 123/56 01/03/20 09:00 Room Air 01/03/20 09:00 59 123/56 01/03/20 09:00 123/56 01/03/20 09:00 123/56 01/03/20 09:00 76 123/56 01/03/20 08:00 97.7 76 20 123/56 (78) 97 01/03/20 08:00 66 01/03/20 04:00 59 01/03/20 04:00 97.3 65 20 123/64 (83) 95 01/03/20 00:00 63 01/03/20 00:00 97.7 60 20 143/65 (91) 95 01/02/20 22:24 70 140/75 01/02/20 21:00 Room Air Intake and Output 01/02/20 01/03/20 19:00 07:00 Intake Total 440 ml 240 ml Balance 440 ml 240 ml Intake Oral 440 ml 240 ml # Voids 4 4 # Bowel Movements 2 Laboratory Tests 01/03/20 06:16: POC Whole Blood Glucose 101 01/03/20 11:59: POC Whole Blood Glucose 193H 01/03/20 17:22: POC Whole Blood Glucose 177H Height (Feet): 5 Height (Inches): 5.00 Weight (Pounds): 180 General Appearance: no apparent distress, alert EENT: normal ENT inspection Neck: normal alignment Cardiovascular: regular rhythm, regularly irregular Respiratory/Chest: lungs clear Abdomen: non tender Edema: no edema noted Arm (L), no edema noted Arm (R), no edema noted Leg (L), no edema noted Leg (R), no edema noted Pedal (L), no edema noted Pedal (R), no edema noted Generalized Neurologic: product representative II-XII grossly normal Assessment/Plan Problem List: (1) Dehydration ICD Codes: E86.0 - Dehydration SNOMED: 63825663 (2) Gait abnormality ICD Codes: R26.9 - Unspecified abnormalities of gait and mobility SNOMED: 99674397 (3) CVA, old, cognitive deficits ICD Codes: I69.319 - Unspecified symptoms and signs involving cognitive functions following cerebral infarction SNOMED: 45950288, 098338702, 790943955, 313675861 (4) Troponin level elevated ICD Codes: R77.8 - Other specified abnormalities of plasma proteins SNOMED: 715383319, 214905665, 665604745 (5) CAD (coronary artery disease) ICD Codes: I25.10 - Atherosclerotic heart disease of [place] coronary artery without angina pectoris SNOMED: 43548241 (6) Diabetes ICD Codes: E11.9 - Type 2 diabetes mellitus without complications SNOMED: 29040367 (7) Pneumonia ICD Codes: J18.9 - Pneumonia, unspecified organism SNOMED: 615937391 (8) Chronic pain syndrome ICD Codes: G89.4 - Chronic painsyndrome SNOMED: 649045583 (9) Gastritis ICD Codes: K29.70 - Gastritis, unspecified, without bleeding SNOMED: 0921141 (10) COVID-19 ICD Codes: U07.1 - COVID-19 SNOMED: 358897481 Assessment/Plan: dexamethasone, remdesivir-completed, , beta blockade--dose adjusted by dr ramos after bradycardia, asa, isosorbide, PT Nishant Acevedo MD Jan 03, 2020 20:30
[2020-01-03] MEDS: Atorvastatin 20mg tab ORAL SCH (20:52)
[2020-01-03] MEDS: Tamsulosin 0.4mg cap ORAL SCH (20:52)
[2020-01-03] MEDS: Donepezil 10mg tab ORAL SCH (20:53)
--- NOTE | 2020-01-03 23:05 | NUR ---
NURSE NOTES: Pt's Tramadol 60 mg q6h PRN for severe pain noted to have automatically discontinued and timed out. Pt c/o of 7/10 bilateral lower leg pain, RN endorsed to Dr. Machado. Per Dr. Machado, "enter order for Tramadol 60 mg q6h PRN for severe pain"
[2020-01-03] MEDS ORDERED: traMADol 50mg tab ORAL PRN (23:30)
[2020-01-04] VITALS (7 sets, daily range): BP systolic 125–145; BP diastolic 60–92
--- NOTE | 2020-01-04 02:08 | Cardiology Progress Note ---
Subjective DATE OF SERVICE: Jan 03, 2020 More alert. No SOB. Appetite improving. Monitor: Sinus bradycardia resolved with decreased beta veronika dosing. No tachyarrhythmias. Objective Last 24 Hour Vital Signs Date Time Temp Pulse Resp B/P (MAP) Pulse Ox O2 Delivery O2 Flow Rate FiO2 01/04/20 00:00 65 01/04/20 00:00 98.0 82 20 133/60 (84) 97 01/03/20 21:00 Room Air 01/03/20 20:53 80 130/59 01/03/20 20:00 92 01/03/20 20:00 98.8 80 18 130/59 (82) 96 01/03/20 17:07 117/25 01/03/20 16:00 97.5 83 20 117/25 (55) 97 01/03/20 16:00 88 01/03/20 12:00 61 01/03/20 12:00 97.7 77 20 125/69 (87) 96 01/03/20 09:27 123/56 01/03/20 09:00 Room Air 01/03/20 09:00 59 123/56 01/03/20 09:00 123/56 01/03/20 09:00 123/56 01/03/20 09:00 76 123/56 01/03/20 08:00 97.7 76 20 123/56 (78) 97 01/03/20 08:00 66 01/03/20 04:00 59 01/03/20 04:00 97.3 65 20 123/64 (83) 95 ROS: no change from my initial evaluation. RHYTHM: NSR, SB LUNGS: lungs clear bilaterally, bilateral rhonchi - few CARDIAC: normal rate, regular rhythm, normal S1 and S2, gallop/S4 ABDOMEN: normal bowel sounds, non tender, soft, no organomegaly EXTREMITIES: normal range of motion, no calf tenderness, No edema Laboratory Tests Test 01/03/20 06:16 01/03/20 11:59 01/03/20 17:22 POC Whole Blood Glucose 101 MG/DL (74-106) 193 MG/DL (74-106) H 177 MG/DL (74-106) H Assessment/Plan Assessment/Plan COVID 19 PNA Dehydration/hypovolemia corrected Acute myocardial ischemia clinically resolved CAD/Hx MD/Hx CABG Hypertension Sinus bradycardia on high dose beta veronika, now stabilized. NIDDM with neuropathy Hypertension/HHD Antivirals/steroids/full anticoagulation Maintain aspirin and statin rx Titrate BBlocker dosing based on heart rates. DC IVF with improved oral intake. Titrate antiHTN meds based on clinical parameters. Yannick Porras MD Jan 04, 2020 02:08
[2020-01-04] MEDS: NovoLOG Insulin Flexpen SUBQ SCH ×3 (05:56→16:30)
[2020-01-04] MEDS: sitaGLIPtin 50mg tab ORAL SCH (06:19)
--- NOTE | 2020-01-04 07:25 | NUR ---
NURSE HAND-OFF REPORT: Important Events on Shift: Pt complained of pain on bilateral lower legs, provided with Tramadol PRN for pain. Patient Status: Stable Diet: Cardiac Pending Orders: N/A Pending Results/Labs: N/A Pending MD notification: N/A Latest Vital Signs: Temperature 97.8 , Pulse 53 , B/P 129 /61 , Respiratory Rate 18 , O2 SAT 95 , Room Air, O2 Flow Rate . Vital Sign Comment: WNL EKG Rhythm: Sinus Rhythm Rhythm change?: N MD Notified?: N - MD Response: Latest Bay Fall Score: 60 Fall Risk: High Risk Safety Measures: Call light Within Reach, Bed Alarm Zone 2, Side Rails Side Rails x3, Bed position Low and Locked. Fall Precautions: Yes Yellow Socks Yellow Gown Door Sign Patient Fall Education Report given to JELENA Lebron.
[2020-01-04 07:31] LABS: ALBUMIN 2.6 G/DL (3.4-5.0); ALBUMIN/GLOBULIN RATIO 0.7 (1.0-2.7); BILIRUBIN,TOTAL 0.3 MG/DL (0.2-1.0); CALCIUM 8.7 MG/DL (8.5-10.1); CREATININE 1.5 MG/DL (0.55-1.30); POTASSIUM 3.7 MMOL/L (3.5-5.1)
[2020-01-04 07:36] LABS: BASOPHILS % (AUTO) 0.4 % (0.0-2.0); EOSINOPHILS % (AUTO) 0.4 % (0.0-3.0); HEMATOCRIT 36.3 % (42.0-52.0); HEMOGLOBIN 12.4 G/DL (14.2-18.0); LYMPHOCYTES % (AUTO) 18.1 % (20.0-45.0); MEAN CORPUSCULAR VOLUME 84 FL (80-99); MONOCYTES % (AUTO) 10.2 % (1.0-10.0); NEUTROPHILS % (AUTO) 70.9 % (45.0-75.0); PLATELET COUNT 219 K/UL (150-450); RED BLOOD COUNT 4.33 M/UL (4.70-6.10); RED CELL DISTRIBUTION WIDTH 13.7 % (11.6-14.8); WHITE BLOOD COUNT 7.8 K/UL (4.8-10.8)
--- NOTE | 2020-01-04 08:01 | NUR ---
NURSE NOTES: Report received from RN. Pt is AOx4, on room air with no signs of resp distress, sob or pain. Pt is on cardiac surgeon with SR noted. pt is afebrile.right FA IV is c/d/i. Pt is ambulatory with assistance. Pt is incontinent and was cleaned. Bed low and locked, siderails up x2, call light placed within reach and instructed to call nurse for assistance. Will continue with plan of care.
[2020-01-04] MEDS: Aspirin Baby 81mg ORAL SCH (08:15)
[2020-01-04] MEDS: Ascorbic Acid 500mg tab ORAL SCH ×2 (08:15→17:20)
[2020-01-04] MEDS: Docusate 250mg cap ORAL SCH ×2 (08:15→17:20)
[2020-01-04] MEDS: Zinc Sulfate 220mg ORAL SCH (08:15)
[2020-01-04] MEDS: Enoxaparin 60mg Inj SUBQ SCH (08:15)
[2020-01-04] MEDS: Vitamin D 1000 IU Tab ORAL SCH (08:15)
[2020-01-04] MEDS: dexAMETHasone 10mg/ml Inj IV SCH (08:15)
--- NOTE | 2020-01-04 08:15 | NUR ---
RADIOLOGY: PCXR COMPLETED 0800HRS. NF
[2020-01-04] MEDS: HydrALAZINE 50mg tab ORAL SCH ×2 (08:16→17:20)
[2020-01-04] MEDS: Metoprolol Tartrate 100mg tab ORAL SCH ×2 (08:16→20:46)
--- NOTE | 2020-01-04 10:20 | Pulmonology Progress Note ---
Subjective Constitutional: Reports: fatigue; Denies: fever Gastrointestinal/Abdominal: Denies: nausea, vomiting, diarrhea Psychiatric: Denies: depression Skin: Denies: rash Musculoskeletal: Denies: pain Allergies: Coded Allergies: No Known Allergies (Unverified , 07/30/18) Subjective remains afebrile, no leukocytosis on RA, pulse ox stable in isolation denies chest pain, SOB HR improved, occasionally still rafi in high 50th cardio follows earlier was working with PT sitting in the chair, but tired now and wants to go back to the bed Objective Last 24 Hour Vital Signs Date Time Temp Pulse Resp B/P (MAP) Pulse Ox O2 Delivery O2 Flow Rate FiO2 01/04/20 08:16 57 125/72 01/04/20 08:16 125/72 01/04/20 08:16 125/72 01/04/20 08:16 85 125/72 01/04/20 08:00 97.1 85 18 125/72 (89) 95 01/04/20 04:00 97.8 85 18 129/61 (83) 95 01/04/20 04:00 53 01/04/20 00:00 65 01/04/20 00:00 98.0 82 20 133/60 (84) 97 01/03/20 21:00 Room Air 01/03/20 20:53 80 130/59 01/03/20 20:00 92 01/03/20 20:00 98.8 80 18 130/59 (82) 96 01/03/20 17:07 117/25 01/03/20 16:00 97.5 83 20 117/25 (55) 97 01/03/20 16:00 88 01/03/20 12:00 61 01/03/20 12:00 97.7 77 20 125/69 (87) 96 Intake and Output 01/03/20 01/04/20 19:00 07:00 Intake Total 400 ml 240 ml Output Total 600 ml Balance -200 ml 240 ml Intake Oral 400 ml 240 ml Output Urine Total 600 ml # Voids 2 4 Objective General Appearance: elderly male in NAD Lines, tubes and drains: peripheral HEENT: normocephalic, atraumatic, anicteric, mucous membranes moist Neck: supple Respiratory/Chest: no respiratory distress, no accessory muscle use Cardiovascular/Chest: normal rate, regular rhythm, tele with SR Abdomen: normal bowel sounds, non tender, soft Extremities: no calf tenderness, normal capillary refill, no edema Neurologic: alert, responsive, moves all extremities Musculoskeletal: atrophy - BLE Laboratory Tests 01/03/20 11:59: POC Whole Blood Glucose 193H 01/03/20 17:22: POC Whole Blood Glucose 177H 01/04/20 05:12: POC Whole Blood Glucose 101 01/04/20 06:05: White Blood Count 7.8, Red Blood Count 4.33L, Hemoglobin 12.4L, Hematocrit 36.3L , Mean Corpuscular Volume 84, Mean Corpuscular Hemoglobin 28.6, Mean Corpuscular Hemoglobin Concent 34.0, Red Cell Distribution Width 13.7, Platelet Count 219, Mean Platelet Volume 8.3, Neutrophils (%) (Auto) 70.9, Lymphocytes (%) (Auto) 18.1L, Monocytes (%) (Auto) 10.2H, Eosinophils (%) (Auto) 0.4, Basophils (%) (Auto) 0.4, Sodium Level 141, Potassium Level 3.7, Chloride Level 110H, Carbon Dioxide Level 20L, Anion Gap 11, Blood Urea Nitrogen 35H, Creatinine 1.5H, Estimat Glomerular Filtration Rate 45.0, Glucose Level 107H, Calcium Level 8.7, Magnesium Level 1.5L, Total Bilirubin 0.3, Aspartate Amino Transf (AST/SGOT) 22, Alanine Aminotransferase (ALT/SGPT) 39, Alkaline Phosphatase 55, C-Reactive Protein, Quantitative 1.7H, Pro-B-Type Natriuretic Peptide 593H, Total Protein 6.4, Albumin 2.6L, Globulin 3.8, Albumin/Globulin Ratio 0.7L Current Medications Medications (Trade) Dose Ordered Sig/Carol Route PRN Reason Start Time Stop Time Status Last Admin Dose Admin Acetaminophen (Tylenol) 650 mg Q4H PRN ORAL PAIN 1-6 12/27/19 19:45 01/26/20 19:44 01/02/20 10:11 Acetaminophen (Tylenol) 650 mg Q4H PRN ORAL FEVER 12/27/19 19:45 01/26/20 19:44 Al Hydroxide/Mg Hydroxide (Mylanta) 30 ml Q4H PRN ORAL GI UPSET 12/27/19 20:00 01/26/20 19:59 Albuterol Sulfate (Proventil MDI) 2 puff Q4H PRN INH Shortness of Breath 12/28/19 10:00 03/27/20 09:59 12/29/19 00:33 Amlodipine Besylate (Norvasc) 10 mg DAILY ORAL 12/28/19 09:00 01/27/20 08:59 01/02/20 09:01 Ascorbic Acid (Vitamin C) 500 mg TWICE A DAY ORAL 12/28/19 18:00 01/27/20 17:59 01/04/20 08:15 Aspirin (ASA) 81 mg DAILY ORAL 12/27/19 19:45 02/10/20 19:44 01/04/20 08:15 Atorvastatin Calcium (Lipitor) 20 mg BEDTIME ORAL 12/27/19 21:00 03/26/20 20:59 01/03/20 20:52 Benazepril HCl (Lotensin) 40 mg DAILY ORAL 12/28/19 09:00 01/27/20 08:59 01/02/20 09:02 Dexamethasone Sodium Phosphate (Decadron 10mg/ ml Inj) 6 mg DAILY IV 12/28/19 09:00 01/06/20 09:01 01/04/20 08:15 Dextrose (Dextrose 50%) 25 ml Q30M PRN IV Hypoglycemia 12/27/19 20:00 03/26/20 19:59 Dextrose (Dextrose 50%) 50 ml Q30M PRN IV Hypoglycemia 12/27/19 20:00 03/26/20 19:59 Docusate Sodium (Colace) 250 mg BID ORAL 12/28/19 09:00 01/27/20 08:59 01/04/20 08:15 Donepezil HCl (Aricept) 10 mg QHS ORAL 12/27/19 21:00 01/26/20 20:59 01/03/20 20:53 Enoxaparin Sodium (Lovenox) 60 mg DAILY SUBQ 12/28/19 10:15 03/27/20 10:14 01/04/20 08:15 Gabapentin (Neurontin) 300 mg BID ORAL 12/27/19 20:00 01/26/20 19:59 01/04/20 08:15 Hydralazine HCl (Apresoline) 100 mg BID ORAL 12/27/19 20:00 03/26/20 19:59 01/02/20 17:42 Insulin Aspart (NovoLOG) BEFORE MEALS SUBQ 12/28/19 06:30 03/27/20 06:29 01/03/20 17:34 Metoprolol Tartrate (Lopressor) 100 mg EVERY 12 HOURS ORAL 01/01/20 09:00 03/31/20 08:59 01/03/20 20:53 Nitroglycerin (Ntg) 1 patch Q24H TDERMAL 12/28/19 10:15 01/27/20 10:14 01/03/20 09:27 Ondansetron HCl (Zofran) 4 mg Q4H PRN IVP Nausea & Vomiting 12/27/19 19:45 01/26/20 19:44 Pantoprazole (Protonix) 40 mg EVERY 12 HOURS ORAL 12/27/19 21:00 01/26/20 20:59 01/04/20 08:15 Sennosides (Senokot) 8.6 mg BIDPRN PRN ORAL Constipation 12/27/19 20:00 01/26/20 19:59 Sitagliptin Phosphate (Januvia) 50 mg ACBREAKFAST ORAL 12/28/19 06:30 01/27/20 06:29 01/04/20 06:19 Tamsulosin HCl (Flomax) 0.4 mg BEDTIME ORAL 12/27/19 21:00 01/26/20 20:59 01/03/20 20:52 Tramadol HCl (Ultram) 50 mg Q6H PRN ORAL Severe Pain (Pain Scale 7-10) 01/03/20 23:30 01/10/20 23:29 01/04/20 05:22 Vitamin D (Vitamin D) 2,000 intlu DAILY ORAL 12/28/19 09:00 01/27/20 08:59 01/04/20 08:15 Zinc Sulfate (Zinc Sulfate) 220 mg DAILY ORAL 12/29/19 09:00 03/28/20 08:59 01/04/20 08:15 Assessment/Plan Assessment/Plan ASSESSMENT Covid 19 PNA Mild hypoxemia Prior smoker Elevated troponin /acute myocardial ischemia LACIE probably due to mild dehydration possibly on CKD ? HTN CAD DM, Hx of CVA BPH SB -resolved PLAN OF CARE tele isolation titrate to keep sat > 92%, Proventil MDI prn steroids D#7 ( 12/27-01/05); completed remdesivir x 5 days abx Doxy and Ceftriaxone ,completed 01/02 a/c with Lovenox CXR 12/30 -Mild airspace opacity within the lateral aspect of the right upper lung field, suspicious for infiltrate. Findings similar to CXR 12/26 fup with inflammatory markers, CRP down to 4.7 zinc, vit C 01/03 CRP down to 1.7, CXR pending for this am troponin minimally elevated, no c/o CP ECHO with pEF 60-65% ? troponin leak 2/2 renal failure -> consider cardio eval- per primary disc retion a/PLT with ASA and BB , nitrites, statin IV hydration home meds resumed as per PMD BP and BS management BP management with multiple anti/HTN regimen: BB, CCB, MARTA, Hydralazine BS management with Januvia and SSI PT eval and Rx, fall precautions supportive care case discussed and evaluated by supervising physician Leonora Rich NP Jan 04, 2020 10:20 True Barrett MD Jan 04, 2020 11:44
[2020-01-04] MEDS: Nitroglycerin Patch 0.4mg TDERMAL SCH (11:28)
--- NOTE | 2020-01-04 12:59 | NUR ---
RADIOLOGY DEPT., CHEST X-RAY DONE-P.DYE
--- NOTE | 2020-01-04 13:53 | NUR ---
P.T Weekly Progress Notes: Pt received skilled P.T this past week. Pt responding well to tx and has shown significant progress in ADL/functional mobility independence. Pt currently performs bed mobility with SBA/supervision, Transfers with SBA x 1 and ambulates with FWW and tolerating average distance of 200 ft , SBA X 1. O2 sats at mid 90's at room air. Will continue with POC. Recommend home P.T at DC. Addendum: 01/04/20 at 1358 by VERN GALARZA PT Amended: Links added.
[2020-01-04] MEDS ORDERED: APRESOLINE50 MG ORAL (15:12)
[2020-01-04] MEDS ORDERED: ASPIRIN81 MG ORAL (15:12)
[2020-01-04] MEDS ORDERED: NORVASC10 MG ORAL (15:12)
[2020-01-04] MEDS ORDERED: DEXAMETHASONE6 MG PO (15:12)
[2020-01-04] MEDS ORDERED: BENAZEPRIL HCL40 MG ORAL (15:12)
[2020-01-04] MEDS ORDERED: NEURONTIN300 MG ORAL (15:12)
--- NOTE | 2020-01-04 19:53 | NUR ---
NURSE NOTES: Report received from Vi BOWLES. Patient is noted to be awake and alert x 4. patient is noted to be on room air, with no complaints of chest pain or shortness of breath at this time. Patient has no complaints at this time. patient is noted to have no IV access. Patient is noted to be in own clothes and sitting in chair. Endorsed to Richy BOWLES that patient has active discharge order to be discharged home. currently awaiting for [facility] to come pick patient up. Endorsed to Richy BOWLES that discharge is completed and with patient. Patient has call light in reach and verbalized he will use call light if needs assistance. Richy BOWLES will continue to follow plan of care until [facility] arrives for discharge.
[2020-01-04] MEDS: Donepezil 10mg tab ORAL SCH (20:46)
[2020-01-04] MEDS: Atorvastatin 20mg tab ORAL SCH (20:46)
[2020-01-04] MEDS: Tamsulosin 0.4mg cap ORAL SCH (20:47)
--- NOTE | 2020-01-04 21:05 | NUR ---
NURSE NOTES: Note that Richy BOWLES called [facility] ambulance in regards to update on pickle pumper time as patient was already supposed to be picked up. Dispatcher informed Richy BOWLES that [facility] is behind on calls and the ambulance is currently scheduled to pickle pumper at 2145. Richy BOWLES informed the patient, patient's daughter, and charge Nurse Liliam.
--- NOTE | 2020-01-04 22:44 | NUR ---
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 Richy BOWLES called [facility] and was informed by the dispatcher that the ambulance is in route to [facility] and should be arriving in the next 20 minutes. Richy BOWLES informed the patient, patient's daughter, and charge nurse Liliam.
[2020-01-04] MEDS ORDERED: NS 275ml ONE (23:54)
[2020-01-04] MEDS ORDERED: 1/2 NS 1000ml IV ONE (23:54)
--- NOTE | 2020-01-04 23:56 | NUR ---
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 Richy BOWLES gave report to [facility] workers. Patient safely transferred to [facility]. Patient is awake and alert x 4 and in stable condition. Richy BOWLES called next of kin to make her aware that patient is on route home.
--- NOTE | 2020-01-05 00:59 | Cardiology Progress Note ---
Subjective DATE OF SERVICE: Jan 04, 2020 More alert. No SOB. Appetite improving. Monitor: Sinus bradycardia resolved with decreased beta veronika dosing. No tachyarrhythmias. Objective Last 24 Hour Vital Signs Date Time Temp Pulse Resp B/P (MAP) Pulse Ox O2 Delivery O2 Flow Rate FiO2 01/04/20 21:00 Room Air 01/04/20 20:46 91 137/69 01/04/20 20:00 81 01/04/20 20:00 97.2 91 18 137/69 (91) 97 01/04/20 17:20 145/84 01/04/20 16:00 65 01/04/20 16:00 97.4 74 20 145/92 (109) 96 01/04/20 12:00 68 01/04/20 12:00 97.4 72 20 140/84 (102) 96 01/04/20 11:28 125/72 01/04/20 09:00 Room Air 01/04/20 08:16 57 125/72 01/04/20 08:16 125/72 01/04/20 08:16 125/72 01/04/20 08:16 85 125/72 01/04/20 08:00 97.1 85 18 125/72 (89) 95 01/04/20 08:00 63 01/04/20 04:00 97.8 85 18 129/61 (83) 95 01/04/20 04:00 53 ROS: no change from my initial evaluation. RHYTHM: NSR, SB LUNGS: lungs clear bilaterally, bilateral rhonchi - few CARDIAC: normal rate, regular rhythm, normal S1 and S2, gallop/S4 ABDOMEN: normal bowel sounds, non tender, soft, no organomegaly EXTREMITIES: normal range of motion, no calf tenderness, No edema Laboratory Tests Test 01/04/20 05:12 01/04/20 06:05 01/04/20 11:35 01/04/20 19:36 POC Whole Blood Glucose 101 MG/DL (74-106) 165 MG/DL (74-106) H 222 MG/DL (74-106) H White Blood Count 7.8 K/UL (4.8-10.8) Red Blood Count 4.33 M/UL (4.70-6.10) L Hemoglobin 12.4 G/DL (14.2-18.0) L Hematocrit 36.3 % (42.0-52.0) L Mean Corpuscular Volume 84 FL (80-99) Mean Corpuscular Hemoglobin 28.6 PG (27.0-31.0) Mean Corpuscular Hemoglobin Concent 34.0 G/DL (32.0-36.0) Red Cell Distribution Width 13.7 % (11.6-14.8) Platelet Count 219 K/UL (150-450) Mean Platelet Volume 8.3 FL (6.5-10.1) Neutrophils (%) (Auto) 70.9 % (45.0-75.0) Lymphocytes (%) (Auto) 18.1 % (20.0-45.0) L Monocytes (%) (Auto) 10.2 % (1.0-10.0) H Eosinophils (%) (Auto) 0.4 % (0.0-3.0) Basophils (%) (Auto) 0.4 % (0.0-2.0) Sodium Level 141 MMOL/L (136-145) Potassium Level 3.7 MMOL/L (3.5-5.1) Chloride Level 110 MMOL/L (98-107) H Carbon Dioxide Level 20 MMOL/L (21-32) L Anion Gap 11 mmol/L (5-15) Blood Urea Nitrogen 35 mg/dL (7-18) H Creatinine 1.5 MG/DL (0.55-1.30) H Estimat Glomerular Filtration Rate 45.0 mL/min (>60) Glucose Level 107 MG/DL (74-106) H Calcium Level 8.7 MG/DL (8.5-10.1) Magnesium Level 1.5 MG/DL (1.8-2.4) L Total Bilirubin 0.3 MG/DL (0.2-1.0) Aspartate Amino Transf (AST/SGOT) 22 U/L (15-37) Alanine Aminotransferase (ALT/SGPT) 39 U/L (12-78) Alkaline Phosphatase 55 U/L (46-116) C-Reactive Protein, Quantitative 1.7 mg/dL (0.00-0.90) H Pro-B-Type Natriuretic Peptide 593 pg/mL (0-125) H Total Protein 6.4 G/DL (6.4-8.2) Albumin 2.6 G/DL (3.4-5.0) L Globulin 3.8 g/dL Albumin/Globulin Ratio 0.7 (1.0-2.7) L Assessment/Plan Assessment/Plan COVID 19 PNA Dehydration/hypovolemia corrected Acute myocardial ischemia clinically resolved CAD/Hx UT/Hx CABG Hypertension Sinus bradycardia on high dose beta veronika, now stabilized. NIDDM with neuropathy Hypertension/HHD Maintain aspirin and statin rx Maintain current BBlocker dose; titrate based on heart rates. Continue current antiHTN meds upon discharge. Yannick Porras MD Jan 05, 2020 00:59
--- NOTE | 2020-01-05 05:15 | Discharge Summary ---
DATE OF ADMISSION: 12/27/2019 DATE OF DISCHARGE: 01/04/2020 PERTINENT HISTORY: The patient was admitted with generalized weakness and new onset of COVID-19 positive. He presented to my office with generalized weakness and unable to walk around his home, some anorexia, eating poorly, but no shortness of breath. His pulse ox in my office was 95%. He was sent to the hospital. There is a history of prior CVA, diabetes, lumbar discogenic disease, coronary artery disease, prior gastritis and GI bleeds. PERTINENT PHYSICAL FINDINGS: See the dictated H and P. LUNGS: Clear. HEART: Regular rhythm. ABDOMEN: Soft without organomegaly. EXTREMITIES: No edema. NEUROLOGIC: He was alert and responsive. No focal weakness, but he had general weakness and needed maximum assistance to stand. COURSE IN THE HOSPITAL: The patient had imaging consistent with COVID-19 pneumonia, but his oxygen saturation throughout most of the hospital stay was normal. He did get dexamethasone and remdesivir in the hospital with the guidance of pulmonary and infectious disease consultants. He also had sinus tachycardia and beta-blockers were adjusted and then subsequently had sinus bradycardia and he was put back on his usual dose. Dr. Yannick Porras consulted in Cardiology. He had borderline troponin elevation consistent with acute myocardial ischemia. The patient was also seen by physical therapy and was gradually able to walk in the room and required a walker, but his gait was improved. His overall well-being was improved at the time of discharge and he was discharged home in improved condition. FINAL DIAGNOSES: 1. COVID-19 pneumonia. 2. Generalized weakness, anorexia, gait disorder associated with COVID-19. 3. Mild dehydration. 4. Acute coronary and myocardial ischemia. 5. Ischemic cardiomyopathy with prior CABG. 6. Cerebrovascular disease with prior CVAs. 7. Type 2 diabetes. 8. Lumbar discogenic disease. 9. Hyperlipidemia. 10. Mild dehydration. 11. Hypertensive heart disease. 12. History of gastritis and prior GI bleeding. DISCHARGE DISPOSITION: Home on a diabetic diet and his abosn-md-duecdfdiu medications. He has one more day of dexamethasone 6 mg. Follow up with Dr. Machado in the office. He will also have home health. Nishant Machado M.D. DR: JERRY JOB#: [id number] CC:
--- NOTE | 2020-01-05 15:23 | Cardiology Report ---
APPROVED REPORT EXAM: Two-dimensional and M-mode echocardiogram with Doppler and color Doppler. INDICATION Angina Pectoris M-Mode DIMENSIONS IVSd0.7 (0.7-1.1cm)Left Atrium (MM)4.0 (1.6-4.0cm) LVDd4.8 (3.5-5.6cm)Aortic Root2.3 (2.0-3.7cm) PWd1.0 (0.7-1.1cm)Aortic Cusp Exc.1.6 (1.5-2.0cm) IVSs1.1 cmEPSS1.0 (>1.0cm) LVDs3.7 (2.5-4.0cm) PWs1.7 cm <Conclusion> Technically difficult study due to poor acoustical windows and pts breathing. Normal left ventricular chamber size, systolic function and wall motion to extent visualized. Left ventricular ejection fraction estimated to be 60-65 %. Study quality precludes accurate assessment of regional wall motion. No evidence of pericardial effusion. All other cardiac chamber sizes are within normal limits. Focal aortic valve sclerosis with adequate cusp excursion. Thickened mitral valve leaflets with normal excursion. Mitral annulus and aortic root calcification. Pulmonic valve not well visualized. Normal tricuspid valve structure. IVC not obtainable. A color flow and spectral Doppler study was performed and revealed: Trace mitral regurgitation. Mitral diastolic velocities suggest reduced left ventricular relaxation c/w diastolic dysfunction grade I. Trace to mild tricuspid regurgitation. Tricuspid systolic velocities suggests peak right ventricular systolic pressure of 13 mmHg.
--- NOTE | 2020-01-05 17:01 | Cardiology Report ---
APPROVED REPORT EKG Measurement Heart [id number] <Conclusion> Normal sinus rhythm Normal ECG
--- NOTE | 2020-01-06 03:00 | Diagnostic Imaging Report ---
EXAM: XR Chest, 1 View CLINICAL HISTORY: SOB TECHNIQUE: Frontal view of the chest. COMPARISON: No relevant prior studies available. FINDINGS: Lungs: Irregular bilateral pulmonary opacities and/or lesions. Patchy atelectasis/pneumonitis as well. Pleural space: Unremarkable. No pneumothorax. Heart: CABG. Mediastinum: Unremarkable. Bones/joints: Sternotomy. Other findings: Single view 01/04/20 at 7:44 AM. Presented for interpretation 01/05/20 at 7:30 PM. IMPRESSION: Irregular bilateral pulmonary opacities and/or lesions. CT can further characterize as warranted.
== END 2020-01-04 23:55 | disposition home or self-care (01) | DRG 177 ==
LOC: EMR 16:34 → 4E 16:45 → EDBEDREQ 17:28 → 4E 18:35 → 2E 12-28 04:50
PROC: XW033E5 Introduction of Remdesivir Anti-infective into Peripheral Vein, Percutaneous Approach, New Technology Group 5 (ICD-10-PCS; principal; 2019-12-27)
DX: U07.1 COVID-19 (principal); J12.89 Other viral pneumonia; I50.32 Chronic diastolic (congestive) heart failure; I13.0 Hypertensive heart and chronic kidney disease with heart failure and stage 1 through stage 4 chronic kidney disease, or unspecified chronic kidney disease; N17.9 Acute kidney failure, unspecified; R09.02 Hypoxemia; I25.5 Ischemic cardiomyopathy; R62.7 Adult failure to thrive; Z68.30 Body mass index [BMI] 30.0-30.9, adult; E11.22 Type 2 diabetes mellitus with diabetic chronic kidney disease; N18.9 Chronic kidney disease, unspecified; Z87.891 Personal history of nicotine dependence; I25.10 Atherosclerotic heart disease of native coronary artery without angina pectoris; Z95.1 Presence of aortocoronary bypass graft; E86.0 Dehydration; Z86.73 Personal history of transient ischemic attack (TIA), and cerebral infarction without residual deficits; I25.2 Old myocardial infarction; N40.0 Benign prostatic hyperplasia without lower urinary tract symptoms; E78.5 Hyperlipidemia, unspecified; M54.30 Sciatica, unspecified side; G89.4 Chronic pain syndrome; R26.9 Unspecified abnormalities of gait and mobility; K29.70 Gastritis, unspecified, without bleeding
CPT/HCPCS: 36415; 71045; 80048; 80053; 81001; 81003; 82248; 82550; 82728; 82803; 82962; 83036; 83520; 83605; 83615; 83735; 83880; 84484; 85025; 85379; 85610; 85651; 85730; 86140; 93005; 93306; 96361; 96374; 99285; J1815; J3490; J7030; U0002